=== PATIENT | female | born 1995 | race Caucasian/White ===

== ENCOUNTER 2018-11-24 15:57 | Inpatient (IN) | payer OTHER ==
[2018-11-24] MEDS ORDERED: Ondansetron 4 MG/2 ML SDV IV PRN (17:08)
[2018-11-24] MEDS ORDERED: Acetaminophen 325 MG Tab PO PRN (17:08)
[2018-11-24] MEDS ORDERED: 50% Dextrose in Water 50 ML Syringe IVPUSH PRN (17:08)
[2018-11-24] MEDS ORDERED: Sodium Chloride 0.9% 2,000 ML IV PRN (17:08)
[2018-11-24] MEDS ORDERED: Sodium Chloride 0.9% 10 ML Syringe FLUSH PRN (17:08)
[2018-11-24] MEDS ORDERED: Potassium Chloride 10% 20 MEQ/15 ML Soln 15 ML UD Cup PO PRN (17:08)
[2018-11-24] MEDS ORDERED: Sodium Phosphate 60 MMOLE in Sodium Chloride 0.9% 250 ML IV PRN (17:08)
--- NOTE | 2018-11-24 17:17 | PCM.HP ---
H&P History of Present Illness - General Date of Service: 11/24/18 Admit Problem/Dx: Admission Diagnosis/Problem Admission Diagnosis/Problem Ketoacidosis Source of Information: Patient, Provider History Limitations: Reports: No Limitations - History of Present Illness Initial Comments - Free Text/Narative: Ms. Sen is a 23-year-old woman who was admitted as a direct admission from the clinic with symptoms of progressive weakness and malaise, secondary to a new diagnosis of type 1 diabetes mellitus with diabetic ketoacidosis. She has not felt well over the past few months, symptoms have been progressive during that period of time and had included polydipsia and polyuria in addition to the weakness. She was into the clinic today to see her primary care provider, labs showed significant for glycemia with elevated anion gap and decrease in carbon dioxide. - Related Data Allergies/Adverse Reactions: Allergies Allergy/AdvReac Type Severity Reaction Status Date / Time No Known Allergies Allergy Verified 11/24/18 17:29 Home Medications: Home Meds Levonorgestrel-Ethin Estradiol [Marlissa-28 Tablet] 1 tab PO DAILY 11/24/18 [ History] Naproxen [EC-Naprosyn] 1 tab PO BID PRN 11/24/18 [History] Past Medical History - Past Health History Medical/Surgical History: Denies Medical/Surgical History Social & Family History - Tobacco Use Smoking Status *Q: Former Smoker Years of Tobacco use: 2 Packs/Tins Daily: 0.5 Used Tobacco, but Quit: Yes Month/Year Tobacco Last Used: 02/2017 Second Hand Smoke Exposure: No - Caffeine Use Caffeine Use: Reports: Coffee - Recreational Drug Use Recreational Drug Use: No H&P Review of Systems - Review of Systems: Review Of Systems: See Below General: Reports: Malaise, Weakness. Denies: Fever, Chills HEENT: Reports: No Symptoms Pulmonary: Reports: No Symptoms Cardiovascular: Reports: No Symptoms Gastrointestinal: Reports: No Symptoms Genitourinary: Reports: No Symptoms Musculoskeletal: Reports: No Symptoms Skin: Reports: No Symptoms Psychiatric: Reports: No Symptoms Neurological: Reports: No Symptoms Hematologic/Lymphatic: Reports: No Symptoms Immunologic: Reports: No Symptoms Exam - Exam Exam: See Below - Vital Signs Weight: 153 lb 7.068 oz - Exam General: Alert, Oriented, Cooperative, Moderate Distress HEENT: Conjunctiva Clear, Hearing Intact, Normal Nasal Septum, Posterior Pharynx Clear, Pupils Equal. No: Mucosa Moist & [place] Neck: Supple, Trachea Midline, +2 Carotid Pulse wo Bruit Lungs: Clear to Auscultation, Normal Respiratory Effort Cardiovascular: Regular Rate, Regular Rhythm, Normal S1, Normal S2. No: Systolic Murmur, Diastolic Murmur GI/Abdominal Exam: Soft, Non-Tender, No Organomegaly, No Distention Back Exam: Normal Inspection, Full Range of Motion Extremities: Non-Tender, No Pedal Edema Skin: Warm, Dry, Intact Neurological: Cranial Nerves Intact, Strength Equal Bilateral, Normal Speech, Normal Tone, Sensation Intact. No: Focal Deficit Neuro Extensive - Mental Status: Alert, Oriented x3, Normal Mood/Affect, Normal Cognition, Memory Intact - Patient Data Result Diagrams: 11/24/18 17:29 *Q Meaningful Use (ADM) - VTE *Q VTE Pharmacological Contraindications *Q: Not Candidate LT Anticoag - VTE Risk Assess *Q Each Risk Factor Represents 1 Point: None Total Score 1 Point Risk Factors: 0 Each Risk Factor Represents 2 Points: None Total Score 2 Point Risk Factors: 0 Each Risk Factor Represents 3 Points: None Total Score 3 Point Risk Factors: 0 Each Risk Factor Represents 5 Points: None Total Score 5 Point Risk Factors: 0 Venous Thromboembolism Risk Factor Score *Q: 0 Problem List Initiated/Reviewed/Updated: Yes Orders Last 24hrs: Active Orders 24 hr Category Date Time Status Patient Status [ADT] Routine ADT 11/24/18 17:08 Ordered Ambulate [RC] QID Care 11/24/18 17:08 Ordered Ambulate [RC] QID Care 11/24/18 17:08 Ordered Blood Glucose Check, Bedside [RC] Q1H Care 11/24/18 17:16 Ordered Cardiac Monitoring [RC] .As Directed Care 11/24/18 17:09 Ordered Diabetes Education [RC] Click to Edit Care 11/24/18 17:08 Ordered Height and Weight [RC] DAILY Care 11/24/18 17:08 Ordered Intake and Output [RC] QSHIFT Care 11/24/18 17:08 Ordered Notify Provider Laboratory Res [RC] ASDIRECTED Care 11/24/18 17:12 Ordered Notify Provider Laboratory Res [RC] ASDIRECTED Care 11/24/18 17:13 Ordered Notify Provider Laboratory Res [RC] ASDIRECTED Care 11/24/18 17:14 Ordered Notify Provider Vital Signs [RC] ASDIRECTED Care 11/24/18 17:08 Ordered Oxygen Therapy [RC] PRN Care 11/24/18 17:08 Ordered Peripheral IV Care [RC] . DIRECTED Care 11/24/18 17:11 Ordered Up ad Marissa [RC] ASDIRECTED Care 11/24/18 17:08 Ordered Up to Chair [RC] QID Care 11/24/18 17:08 Ordered VTE/DVT Education [RC] Per Unit Routine Care 11/24/18 17:08 Ordered Vital Signs [RC] Q1H Care 11/24/18 17:08 Ordered Vital Signs [RC] Q4H Care 11/24/18 17:08 Ordered Consult to Diabetic Nurse Specialist [CONS] Urgent Cons 11/24/18 17:08 Ordered Consistent Carbohydrate Diet [DIET] Diet 11/24/18 Dinner Ordered Pelvis Non OB Comp [US] Routine Exams 11/24/18 16:45 Taken BASIC METABOLIC PANEL,BMP [CHEM] Q4H Lab 11/24/18 17:15 Ordered BASIC METABOLIC PANEL,BMP [CHEM] Q4H Lab 11/24/18 21:15 Ordered BASIC METABOLIC PANEL,BMP [CHEM] Q4H Lab 11/25/18 01:15 Ordered BASIC METABOLIC PANEL,BMP [CHEM] Q4H Lab 11/25/18 05:15 Ordered BASIC METABOLIC PANEL,BMP [CHEM] Q4H Lab 11/25/18 09:15 Ordered BASIC METABOLIC PANEL,BMP [CHEM] Q4H Lab 11/25/18 13:15 Ordered GLYCOSYLATED HEMOGLOBIN,HGBA1C [CHEM] AM Lab 11/25/18 05:11 Ordered MAGNESIUM [CHEM] Q6H Lab 11/24/18 17:15 Ordered MAGNESIUM [CHEM] Q6H Lab 11/24/18 23:15 Ordered MAGNESIUM [CHEM] Q6H Lab 11/25/18 05:15 Ordered MAGNESIUM [CHEM] Q6H Lab 11/25/18 11:15 Ordered PH,VENOUS [BG] Stat Lab 11/24/18 17:14 Ordered PHOSPHORUS [CHEM] Q6H Lab 11/24/18 17:15 Ordered PHOSPHORUS [CHEM] Q6H Lab 11/24/18 23:15 Ordered PHOSPHORUS [CHEM] Q6H Lab 11/25/18 05:15 Ordered PHOSPHORUS [CHEM] Q6H Lab 11/25/18 11:15 Ordered POTASSIUM,K [CHEM] Q2 Lab 11/24/18 17:15 Ordered POTASSIUM,K [CHEM] Q2 Lab 11/24/18 19:15 Ordered POTASSIUM,K [CHEM] Q2 Lab 11/24/18 21:15 Ordered POTASSIUM,K [CHEM] Q2 Lab 11/24/18 23:15 Ordered POTASSIUM,K [CHEM] Q2 Lab 11/25/18 01:15 Ordered POTASSIUM,K [CHEM] Q2 Lab 11/25/18 03:15 Ordered POTASSIUM,K [CHEM] Q2 Lab 11/25/18 05:15 Ordered POTASSIUM,K [CHEM] Q2 Lab 11/25/18 07:15 Ordered POTASSIUM,K [CHEM] Q2 Lab 11/25/18 09:15 Ordered POTASSIUM,K [CHEM] Q2 Lab 11/25/18 11:15 Ordered POTASSIUM,K [CHEM] Q2 Lab 11/25/18 13:15 Ordered POTASSIUM,K [CHEM] Q2 Lab 11/25/18 15:15 Ordered Acetaminophen [Tylenol] Med 11/24/18 17:08 Ordered 650 mg PO Q4H PRN Dextrose 5%-0.45% NaCl [Dextrose 5%-1/2 NS] 1,000 ml Med 11/24/18 17:08 Ordered IV .CONTINUOUS Dextrose 50% in Water Med 11/24/18 17:08 Ordered 50 ml IVPUSH ONETIME PRN Insulin Regular, Human [HumuLIN R] Med 11/24/18 17:08 Once 3 unit SUBCUT ONETIME ONE Insulin Regular, Human [HumuLIN R] 100 unit Med 11/24/18 17:15 Ordered Sodium Chloride 0.9% [Normal Saline] 100 ml IV TITRATE Magnesium Sulfate/Water [Magnesium Sulfate in Water Med 11/24/18 17:08 Ordered Premix] 50 ml IV ONETIME Ondansetron [Zofran] Med 11/24/18 17:08 Ordered 4 mg IV Q4H PRN Polyethylene Glycol 3350 [MiraLAX] Med 11/24/18 17:08 Ordered 17 gm PO DAILY PRN Potassium Chloride [Potassium Chloride Solution] Med 11/24/18 17:08 Ordered 20 meq PO NOW PRN Potassium Chloride [Potassium Chloride Solution] Med 11/24/18 17:08 Ordered 40 meq PO NOW PRN Potassium Chloride [Potassium Chloride Solution] Med 11/24/18 17:08 Ordered 40 meq PO Q2H PRN Sodium Chloride 0.9% [Normal Saline] 2,000 ml Med 11/24/18 17:08 Ordered IV .CONTINUOUS Sodium Chloride 0.9% [Saline Flush] Med 11/24/18 17:08 Ordered 10 ml FLUSH ASDIRECTED PRN Sodium Phosphate 60 meq Med 11/24/18 17:08 Ordered Sodium Chloride 0.9% [Normal Saline] 250 ml IV ONETIME Medication Continuation Instructions [OM.PC] ASDIRECTED Oth 11/24/18 17:15 Ordered Medication Discontinuation Instructions [OM.PC] Ot 11/24/18 17:15 Ordered ASDIRECTED Peripheral IV Insertion Adult [OM.PC] Routine Ot 11/24/18 17:08 Ordered VTE Pharmacological Contraindications [AST] Per Unit Ot 11/24/18 17:08 Ordered Routine Resuscitation Status Routine Resus Stat 11/24/18 17:08 Ordered Assessment/Plan Comment:: ASSESSMENT AND PLAN DIABETIC KETOACIDOSIS-new diagnosis of diabetes, likely type I. Progressive symptoms of hyperglycemia over the past few months. Denies recent infection or other significant abnormalities. -IV fluids per ketoacidosis protocol -IV insulin per ketoacidosis protocol -Management of electrolytes per protocol NEW DIAGNOSIS TYPE 1 DIABETES MELLITUS -Consult prosthodontist/educator in a.m. MAINTENANCE ISSUES -DVT prophylaxis; not indicated -GI prophylaxis; not indicated -Mendez catheter; not indicated -Nutrition; consistent carb diet -Nicotine dependence; not required CODE STATUS-FULL CODE ADMISSION STATUS-patient will be admitted to inpatient status, expect at least a 2 night hospital stay for evaluation and management of problems as outlined above. At the time of this admission I do not reasonably expected evaluation and management of this problem will require more than a 96 hour hospital stay. DISPOSITION-anticipate discharge to home after the hospital stay. PRIMARY CARE PROVIDER-Yara Scott
[2018-11-24] MEDS ORDERED: Insulin Regular, Human 100 Units/ML 3 ML Vial SUBCUT ONE (17:40)
[2018-11-24] MEDS: Polyethylene Glycol 3350 Powder 17 GM Packet PO PRN (17:45)
[2018-11-24] MEDS: Magnesium Sulfate/Water 50 ML IV PRN (18:23)
[2018-11-24] MEDS: Potassium Chloride 10% 20 MEQ/15 ML Soln 15 ML UD Cup PO PRN ×3 (18:24→21:49)
[2018-11-24] MEDS: Dextrose 5%-0.45% NaCl 1,000 ML IV PRN (21:05)
[2018-11-25] MEDS: Potassium Chloride 10% 20 MEQ/15 ML Soln 15 ML UD Cup PO PRN ×4 (00:22→06:23)
[2018-11-25] MEDS: Magnesium Sulfate/Water 50 ML IV PRN ×2 (00:23→12:09)
[2018-11-25] MEDS: Dextrose 5%-0.45% NaCl 1,000 ML IV PRN ×2 (03:09→10:22)
[2018-11-25 06:42] LABS: HEMOGLOBIN A1C 12.7 % (4.5-6.2)
[2018-11-25] MEDS ORDERED: Sodium Phosphate 60 MMOLE in Sodium Chloride 0.9% 250 ML IV PRN (08:00)
[2018-11-25] MEDS ORDERED: Potassium Chloride 20 MEQ Tab.ER PO PRN ×2 (09:38→10:00)
[2018-11-25] MEDS: Potassium Chloride 20 MEQ Tab.ER PO PRN ×2 (10:35→12:09)
--- NOTE | 2018-11-25 10:35 | PCM.PN ---
- General Info Date of Service: 11/25/18 Subjective Update: Ms. Sen has improved significantly since admission, glucose level now controlled and diabetic ketoacidosis has resolved. She reports feeling somewhat better but the as expected did not sleep well during the night because of repeated blood draws. Functional Status: Reports: Tolerating Diet, Ambulating, Urinating - Review of Systems Pulmonary: Reports: No Symptoms Cardiovascular: Reports: No Symptoms Gastrointestinal: Reports: No Symptoms - Patient Data Vitals - Most Recent: Last Vital Signs Temp 97.1 F 11/25/18 10:00 Pulse 95 11/25/18 10:00 Resp 15 11/25/18 10:00 BP 121/80 11/25/18 10:00 Pulse Ox 99 11/25/18 10:00 Weight - Most Recent: 153 lb 7.068 oz I&O - Last 24 Hours: Intake & Output 11/24/18 11/25/18 11/25/18 22:59 06:59 14:59 Intake Total 4392 Output Total 400 1000 Balance -400 3392 Lab Results Last 24 Hours: Laboratory Results - last 24 hr 11/24/18 11/24/18 11/24/18 Range/Units 17:29 17:29 19:16 VBG pH 7.303 L (7.350-7.450) Sodium 133 L (140-148) mmol/L Potassium 3.7 3.3 L (3.6-5.2) mmol/L Chloride 98 L (100-108) mmol/L Carbon Dioxide 15 L (21-32) mmol/L Anion Gap 23.7 H (5.0-14.0) mmol/L BUN 8 D (7-18) mg/dL Creatinine 0.7 (0.6-1.0) mg/dL Est Cr Clr Drug Dosing 114.40 mL/min Estimated GFR (MDRD) > 60 (>60) Glucose 453 H* (74-106) mg/dL Hemoglobin A1c (4.5-6.2) % Calcium 8.9 (8.5-10.1) mg/dL Phosphorus 2.6 (2.5-4.9) mg/dL Magnesium 1.6 L (1.8-2.4) mg/dL 11/24/18 11/24/18 11/25/18 Range/Units 21:20 23:20 01:05 VBG pH (7.350-7.450) Sodium 139 L 139 L (140-148) mmol/L Potassium 3.6 3.3 L 3.3 L (3.6-5.2) mmol/L Chloride 108 108 (100-108) mmol/L Carbon Dioxide 17 L 20 L (21-32) mmol/L Anion Gap 17.6 H 14.3 H (5.0-14.0) mmol/L BUN 7 8 (7-18) mg/dL Creatinine 0.6 0.5 L (0.6-1.0) mg/dL Est Cr Clr Drug Dosing 133.46 160.15 mL/min Estimated GFR (MDRD) > 60 > 60 (>60) Glucose 206 H 172 H (74-106) mg/dL Hemoglobin A1c (4.5-6.2) % Calcium 8.2 L 7.8 L (8.5-10.1) mg/dL Phosphorus 1.1 L (2.5-4.9) mg/dL Magnesium 1.6 L (1.8-2.4) mg/dL 11/25/18 11/25/18 11/25/18 Range/Units 03:05 05:10 05:11 VBG pH (7.350-7.450) Sodium 139 L (140-148) mmol/L Potassium 3.8 3.6 (3.6-5.2) mmol/L Chloride 110 H (100-108) mmol/L Carbon Dioxide 19 L (21-32) mmol/L Anion Gap 13.6 (5.0-14.0) mmol/L BUN 6 L (7-18) mg/dL Creatinine 0.5 L (0.6-1.0) mg/dL Est Cr Clr Drug Dosing 160.15 mL/min Estimated GFR (MDRD) > 60 (>60) Glucose 153 H (74-106) mg/dL Hemoglobin A1c 12.7 H (4.5-6.2) % Calcium 7.9 L (8.5-10.1) mg/dL Phosphorus 1.0 L (2.5-4.9) mg/dL Magnesium 2.0 (1.8-2.4) mg/dL 11/25/18 11/25/18 Range/Units 07:10 09:09 VBG pH (7.350-7.450) Sodium 141 (140-148) mmol/L Potassium 3.7 3.2 L (3.6-5.2) mmol/L Chloride 110 H (100-108) mmol/L Carbon Dioxide 22 (21-32) mmol/L Anion Gap 12.2 (5.0-14.0) mmol/L BUN 4 L (7-18) mg/dL Creatinine 0.4 L (0.6-1.0) mg/dL Est Cr Clr Drug Dosing 200.19 mL/min Estimated GFR (MDRD) > 60 (>60) Glucose 144 H (74-106) mg/dL Hemoglobin A1c (4.5-6.2) % Calcium 8.0 L (8.5-10.1) mg/dL Phosphorus (2.5-4.9) mg/dL Magnesium (1.8-2.4) mg/dL Med Orders - Current: Current Medications Acetaminophen (Tylenol) 650 mg PO Q4H PRN PRN Reason: Pain (Mild 1-3)/fever Last Admin: 11/25/18 10:29 Dose: 650 mg Dextrose/Water (Dextrose 50% In Water) 50 ml IVPUSH ASDIRECTED PRN PRN Reason: Blood Glucose Dextrose/Sodium Chloride (Dextrose 5%-1/2 Ns) 1,000 mls @ 150 mls/hr IV .CONTINUOUS PRN PRN Reason: Blood Glucose Last Admin: 11/25/18 10:22 Dose: 150 mls/hr Insulin Human Regular 100 unit (/ Sodium Chloride) 100 mls @ 6.96 mls/hr IV TITRATE KINZA; Protocol Last Titration: 11/25/18 10:26 Dose: 0.1 units/kg/hr, 7 mls/hr Magnesium Sulfate (Magnesium Sulfate In Water Premix) 50 mls @ 25 mls/hr IV ASDIRECTED PRN PRN Reason: low magnesium Last Admin: 11/25/18 00:23 Dose: 25 mls/hr Sodium Chloride (Normal Saline) 2,000 mls @ 500 mls/hr IV .CONTINUOUS PRN PRN Reason: Blood Glucose Last Admin: 11/24/18 19:33 Dose: 500 mls/hr Sodium Phosphate 60 mmole/ (Sodium Chloride) 270 mls @ 62.5 mls/hr IV ONETIME PRN PRN Reason: Low phophorus Ondansetron HCl (Zofran) 4 mg IV Q4H PRN PRN Reason: Nausea/Vomiting Polyethylene Glycol (Miralax) 17 gm PO DAILY PRN PRN Reason: Constipation Last Admin: 11/24/18 17:45 Dose: 17 gm Potassium Chloride (Klor-Con M20) 20 meq PO ASDIRECTED PRN PRN Reason: Hypokalemia Potassium Chloride (Klor-Con M20) 40 meq PO ASDIRECTED PRN PRN Reason: Hypokalemia Potassium Chloride (Klor-Con M20) 40 meq PO Q2H PRN PRN Reason: Hypokalemia Sodium Chloride (Saline Flush) 10 ml FLUSH ASDIRECTED PRN PRN Reason: Keep Vein Open Discontinued Medications Insulin Human Regular (Humulin R) 3 unit SUBCUT ONETIME ONE Stop: 11/24/18 17:41 Last Admin: 11/24/18 17:46 Dose: 3 units Potassium Chloride (Potassium Chloride Solution) 20 meq PO ASDIRECTED PRN PRN Reason: Hypokalemia Last Admin: 11/25/18 06:23 Dose: 20 meq Potassium Chloride (Potassium Chloride Solution) 40 meq PO ASDIRECTED PRN PRN Reason: Hypokalemia Last Admin: 11/25/18 01:46 Dose: 40 meq Potassium Chloride (Potassium Chloride Solution) 40 meq PO Q2H PRN PRN Reason: Hypokalemia - Exam General: Alert, Oriented, Cooperative, No Acute Distress Lungs: Clear to Auscultation, Normal Respiratory Effort Cardiovascular: Regular Rate, Regular Rhythm, No Murmurs GI/Abdominal Exam: Soft, Non-Tender, No Organomegaly, No Distention Extremities: Non-Tender, No Pedal Edema - Problem List Review Problem List Initiated/Reviewed/Updated: Yes - My Orders Last 24 Hours: My Active Orders 11/24/18 17:08 Patient Status [ADT] Routine Ambulate [RC] QID Diabetes Education [RC] Click to Edit Height and Weight [RC] DAILY Intake and Output [RC] QSHIFT Notify Provider Vital Signs [RC] ASDIRECTED Oxygen Therapy [RC] PRN Up ad Marissa [RC] ASDIRECTED Up to Chair [RC] QID VTE/DVT Education [RC] Per Unit Routine Vital Signs [RC] Q1H Consult to Diabetic Nurse Specialist [CONS] Urgent Acetaminophen [Tylenol] 650 mg PO Q4H PRN Dextrose 5%-0.45% NaCl [Dextrose 5%-1/2 NS] 1,000 ml IV .CONTINUOUS Dextrose 50% in Water 50 ml IVPUSH ASDIRECTED PRN Magnesium Sulfate/Water [Magnesium Sulfate in Water Premix] 50 ml IV ASDIRECTED Ondansetron [Zofran] 4 mg IV Q4H PRN Polyethylene Glycol 3350 [MiraLAX] 17 gm PO DAILY PRN Sodium Chloride 0.9% [Normal Saline] 2,000 ml IV .CONTINUOUS Sodium Chloride 0.9% [Saline Flush] 10 ml FLUSH ASDIRECTED PRN Peripheral IV Insertion Adult [OM.PC] Routine VTE Pharmacological Contraindications [AST] Per Unit Routine Resuscitation Status Routine 11/24/18 17:09 Cardiac Monitoring [RC] Q6H 11/24/18 17:11 Peripheral IV Care [RC] Q6H 11/24/18 17:12 Notify Provider Laboratory Res [RC] ASDIRECTED 11/24/18 17:13 Notify Provider Laboratory Res [RC] ASDIRECTED 11/24/18 17:14 Notify Provider Laboratory Res [RC] ASDIRECTED 11/24/18 17:15 Insulin Regular, Human [HumuLIN R] 100 unit Sodium Chloride 0.9% [Normal Saline] 100 ml IV TITRATE Medication Continuation Instructions [OM.PC] ASDIRECTED Medication Discontinuation Instructions [OM.PC] ASDIRECTED 11/24/18 17:16 Blood Glucose Check, Bedside [RC] Q1H 11/24/18 Dinner Consistent Carbohydrate Diet [DIET] 11/25/18 08:00 Sodium Phosphate 60 mmole Sodium Chloride 0.9% [Normal Saline] 250 ml IV ONETIME 11/25/18 09:38 Potassium Chloride [Klor-Con M20] 40 meq PO ASDIRECTED PRN 11/25/18 10:00 Potassium Chloride [Klor-Con M20] 20 meq PO ASDIRECTED PRN Potassium Chloride [Klor-Con M20] 40 meq PO Q2H PRN 11/25/18 11:15 MAGNESIUM [CHEM] Q6H PHOSPHORUS [CHEM] Q6H POTASSIUM,K [CHEM] Q2H 11/25/18 13:15 BASIC METABOLIC PANEL,BMP [CHEM] Q4H 11/25/18 15:15 POTASSIUM,K [CHEM] Q2H 11/25/18 17:00 BASIC METABOLIC PANEL,BMP [CHEM] Stat 11/26/18 05:00 BASIC METABOLIC PANEL,BMP [CHEM] Timed - Plan Plan:: ASSESSMENT AND PLAN DIABETIC KETOACIDOSIS-new diagnosis of diabetes, likely type I. Progressive symptoms of hyperglycemia over the past few months. Denies recent infection or other significant abnormalities. Improved significantly since admission with control of glucose and resolution of ketoacidosis -IV fluids per ketoacidosis protocol -IV insulin per ketoacidosis protocol -Management of electrolytes per protocol NEW DIAGNOSIS TYPE 1 DIABETES MELLITUS -Consult clinical educator in a.m. -Plan to transition to subcutaneous insulin today MAINTENANCE ISSUES -DVT prophylaxis; not indicated -GI prophylaxis; not indicated -Mendez catheter; not indicated -Nutrition; consistent carb diet -Nicotine dependence; not required CODE STATUS-FULL CODE ADMISSION STATUS-patient will be admitted to inpatient status, expect at least a 2 night hospital stay for evaluation and management of problems as outlined above. At the time of this admission I do not reasonably expected evaluation and management of this problem will require more than a 96 hour hospital stay. DISPOSITION-anticipate discharge to home after the hospital stay. PRIMARY CARE PROVIDER-Yara Scott
[2018-11-25] MEDS: Polyethylene Glycol 3350 Powder 17 GM Packet PO PRN (10:37)
[2018-11-25] MEDS ORDERED: Glucose Gel 15 GM in 37.5 GM Tube PO PRN (12:53)
[2018-11-25] MEDS ORDERED: Insulin Glargine,Human Rec. Analog 100 Units/ML 3 ML Pen SUBCUT SCH (13:15)
--- NOTE | 2018-11-25 16:27 | CRLUS ---
INDICATION: Irregular bleeding TECHNIQUE: Ultrasound pelvis transabdominal only COMPARISON: 11/11/2017 FINDINGS: Uterus: 6.8 centimeter x 2.9 centimeter x 3.6 centimeter normal echotexture of the myometrium. No masses. Endometrium: The endometrium measures 5 mm in thickness. No sign of endometrial mass or fluid. Right ovary: 3.1 centimeter x 1.6 centimeter x 2.0 centimeter. No ovarian or adnexal masses. Normal arterial and venous blood flow. Left ovary: 2.8 centimeter x 2.0 centimeter x 2.8 centimeter. No ovarian or adnexal masses. Normal arterial and venous blood flow. Cul-de-sac: No significant free fluid. IMPRESSION: Unremarkable pelvic ultrasound. Dictated by Babar Marc MD @ Nov 25 2018 4:25PM Signed by Dr. Babar Marc @ Nov 25 2018 4:25PM
[2018-11-25] MEDS: Insulin Lispro 100 Unit/ML 3 ML KwikPen SUBCUT SCH ×3 (17:03→20:34)
[2018-11-26 08:08] VITALS: BP 100/65; PULSE 91
[2018-11-26] MEDS: Insulin Lispro 100 Unit/ML 3 ML KwikPen SUBCUT SCH ×2 (08:11→08:13)
[2018-11-26] MEDS ORDERED: Insulin Glargine,Human Rec. Analog 100 Units/ML 3 ML Pen SUBCUT SCH (09:30)
--- NOTE | 2018-11-26 09:40 | PCM.DCSUM1 ---
Discharge Summary - Hospital Course Brief History: Ms. Sen is a 23-year-old woman who was admitted as a direct admission from the clinic with marked hyperglycemia and diabetic ketoacidosis. - Discharge Data Discharge Date: 11/26/18 Discharge Disposition: Home, Self-Care 01 Condition: Fair - Discharge Diagnosis/Problem(s) (1) Diabetic ketoacidosis associated with type 1 diabetes mellitus SNOMED Code(s): 391499212, 524863244 ICD Code: E10.10 - TYPE 1 DIABETES MELLITUS WITH KETOACIDOSIS WITHOUT COMA Status: Acute Current Visit: Yes (2) Type 1 diabetes mellitus SNOMED Code(s): 74181623 ICD Code: E10.9 - TYPE 1 DIABETES MELLITUS WITHOUT COMPLICATIONS Status: Chronic Current Visit: Yes - Patient Summary/Data Consults: Consultations 11/24/18 17:08 Consult to Diabetic Nurse Specialist [CONS] Urgent Comment: Physician Instructions: Reason for Consult: New diagnosis type 1 diabetes mellitus Hospital Course: Ms. Sen is a 23-year-old woman who was admitted as a direct admission from the clinic with symptoms of progressive weakness and malaise, secondary to a new diagnosis of type 1 diabetes mellitus with diabetic ketoacidosis. She has not felt well over the past few months, symptoms have been progressive during that period of time and had included polydipsia and polyuria in addition to the weakness. She was into the clinic today to see her primary care provider, labs showed marked hyperglycemia with elevated anion gap and decrease in carbon dioxide. On admission she was placed on diabetic ketoacidosis protocol and was given a bolus dose of insulin as well as started on a continuous infusion of regular insulin. Glucose levels were monitored hourly, potassium levels every 2 hours, and a BMP every 4 hours with phosphorus and magnesium. By the following morning blood sugars were under good control and ketoacidosis had resolved. She' d also been given vigorous IV fluid replacement per ketoacidosis protocol. She was seen and evaluated by the senior health educator and dietitian. She was transitioned to subcutaneous insulin with Lantus 60 units subcutaneous daily and Humalog 6 units subcutaneous 3 times daily with meals. By the following morning glucose level was noted to be 88 and her daily dose of long acting insulin was decreased to 50 units. She was instructed on use of glucose monitoring as well as injection of insulin. Follow-up appointment will be scheduled with the senior health educator. She will see her primary care provider for follow-up within one week. She is also been scheduled for an appointment with endocrinology on 09 December. Activity will be as tolerated and she will be on a consistent carbohydrate diet. On discharge she will be transitioned to Tresiba insulin 15 at subcutaneous daily and NovoLog 6 units subcutaneous 3 times daily with meals. - Patient Instructions Diet: Diabetic Diet (Consistent carbohydrate) Activity: As Tolerated - Discharge Plan *PRESCRIPTION DRUG MONITORING PROGRAM REVIEWED*: Not Applicable *COPY OF PRESCRIPTION DRUG MONITORING REPORT IN PATIENT MORENO: Not Applicable Prescriptions/Med Rec: Insulin Degludec [Tresiba Flextouch U-100] 50 unit SQ DAILY #10 ml Insulin Lispro [Humalog] 6 unit SUBCUT TIDMEALS #1 pen Home Medications: Home Meds Levonorgestrel-Ethin Estradiol [Marlissa-28 Tablet] 1 tab PO DAILY 11/24/18 [ History] Insulin Degludec [Tresiba Flextouch U-100] 50 unit SQ DAILY #10 ml 11/26/18 [Rx] Insulin Lispro [Humalog] 6 unit SUBCUT TIDMEALS #1 pen 11/26/18 [Rx] Referrals: Taylor Abdalla NP [Ordering Only Provider] - 12/09/18 2:00 pm (Please arrive a5 minutes early to register for your appointment.) Yara Scott CNM [Primary Care Provider] - 12/05/18 1:30 pm (Please arrive 15 minutes early to register for your appointment.) - Discharge Summary/Plan Comment DC Time >30 min.: No - Patient Data Vitals - Most Recent: Last Vital Signs Temp 98 F 11/26/18 08:00 Pulse 91 11/26/18 08:00 Resp 14 11/26/18 08:00 BP 100/65 11/26/18 08:00 Pulse Ox 97 11/26/18 08:00 Weight - Most Recent: 153 lb 7.068 oz Lab Results - Last 24 hrs: Laboratory Results - last 24 hr 11/25/18 11/25/18 11/26/18 Range/Units 11:09 16:58 05:30 Sodium 140 141 (140-148) mmol/L Potassium 3.5 L 3.5 L 3.4 L (3.6-5.2) mmol/L Chloride 107 109 H (100-108) mmol/L Carbon Dioxide 23 23 (21-32) mmol/L Anion Gap 13.5 12.4 (5.0-14.0) mmol/L BUN 7 D 6 L (7-18) mg/dL Creatinine 0.5 L 0.4 L (0.6-1.0) mg/dL Est Cr Clr Drug Dosing 159.90 199.87 mL/min Estimated GFR (MDRD) > 60 > 60 (>60) Glucose 296 H 88 (74-106) mg/dL Calcium 7.7 L 8.2 L (8.5-10.1) mg/dL Phosphorus 1.2 L (2.5-4.9) mg/dL Magnesium 1.7 L (1.8-2.4) mg/dL Med Orders - Current: Current Medications Acetaminophen (Tylenol) 650 mg PO Q4H PRN PRN Reason: Pain (Mild 1-3)/fever Last Admin: 11/25/18 10:29 Dose: 650 mg Dextrose (Glutose 15) 15 gm PO ONETIME PRN PRN Reason: Hypoglycemia Dextrose/Water (Dextrose 50% In Water) 50 ml IVPUSH ASDIRECTED PRN PRN Reason: Blood Glucose Magnesium Sulfate (Magnesium Sulfate In Water Premix) 50 mls @ 25 mls/hr IV ASDIRECTED PRN PRN Reason: low magnesium Last Admin: 11/25/18 12:09 Dose: 25 mls/hr Sodium Phosphate 60 mmole/ (Sodium Chloride) 270 mls @ 62.5 mls/hr IV ONETIME PRN PRN Reason: Low phophorus Last Admin: 11/25/18 13:15 Dose: 62.5 mls/hr Insulin Glargine (Lantus Solostar) 50 units SUBCUT DAILY [facility] Last Admin: 11/26/18 09:23 Dose: 50 units Insulin Human Lispro (Humalog) 6 unit SUBCUT TIDMEALS [facility] Last Admin: 11/26/18 08:13 Dose: 6 units Insulin Human Lispro (Humalog) 0 unit SUBCUT QIDACANDBED [facility]; Protocol Last Admin: 11/26/18 08:11 Dose: Not Given Ondansetron HCl (Zofran) 4 mg IV Q4H PRN PRN Reason: Nausea/Vomiting Polyethylene Glycol (Miralax) 17 gm PO DAILY PRN PRN Reason: Constipation Last Admin: 11/25/18 10:37 Dose: 17 gm Potassium Chloride (Klor-Con M20) 20 meq PO ASDIRECTED PRN PRN Reason: Hypokalemia Last Admin: 11/25/18 12:09 Dose: 20 meq Potassium Chloride (Klor-Con M20) 40 meq PO ASDIRECTED PRN PRN Reason: Hypokalemia Potassium Chloride (Klor-Con M20) 40 meq PO Q2H PRN PRN Reason: Hypokalemia Sodium Chloride (Saline Flush) 10 ml FLUSH ASDIRECTED PRN PRN Reason: Keep Vein Open Discontinued Medications Dextrose/Sodium Chloride (Dextrose 5%-1/2 Ns) 1,000 mls @ 150 mls/hr IV .CONTINUOUS PRN PRN Reason: Blood Glucose Last Admin: 11/25/18 10:22 Dose: 150 mls/hr Insulin Human Regular 100 unit (/ Sodium Chloride) 100 mls @ 6.96 mls/hr IV TITRATE KINZA; Protocol Last Titration: 11/25/18 10:26 Dose: 0.1 units/kg/hr, 7 mls/hr Sodium Chloride (Normal Saline) 2,000 mls @ 500 mls/hr IV .CONTINUOUS PRN PRN Reason: Blood Glucose Last Admin: 11/24/18 19:33 Dose: 500 mls/hr Insulin Glargine (Lantus Solostar) 60 units SUBCUT DAILY [facility] Last Admin: 11/25/18 13:26 Dose: 60 units Insulin Human Regular (Humulin R) 3 unit SUBCUT ONETIME ONE Stop: 11/24/18 17:41 Last Admin: 11/24/18 17:46 Dose: 3 units Potassium Chloride (Potassium Chloride Solution) 20 meq PO ASDIRECTED PRN PRN Reason: Hypokalemia Last Admin: 11/25/18 06:23 Dose: 20 meq Potassium Chloride (Potassium Chloride Solution) 40 meq PO ASDIRECTED PRN PRN Reason: Hypokalemia Last Admin: 11/25/18 01:46 Dose: 40 meq Potassium Chloride (Potassium Chloride Solution) 40 meq PO Q2H PRN PRN Reason: Hypokalemia - Exam General: Reports: Alert, Oriented, Cooperative, No Acute Distress Lungs: Reports: Clear to Auscultation, Normal Respiratory Effort Cardiovascular: Reports: Regular Rate, Regular Rhythm, No Murmurs GI/Abdominal Exam: Soft, Non-Tender, No Organomegaly, No Distention *Q Meaningful Use (DIS) - VTE *Q VTE Pharmacological Contraindications *Q: Not Candidate LT Anticoag
== END 2018-11-26 10:53 | disposition home or self-care (01) | DRG 639 ==
LOC: JP.US 15:57 → UNDOADMIN 16:58 → JP.ICU 16:58
PROVIDERS: ADMIT Hospitalist; ATTEND Hospitalist
DX: E10.10 Type 1 diabetes mellitus with ketoacidosis without coma (principal); Z79.899 Other long term (current) drug therapy; Z87.891 Personal history of nicotine dependence
CPT/HCPCS: 36415; 76856; 80048; 82800; 82962; 83036; 83735; 84100; 84132; A9270-GY; J1815; J1815-GY; J3475; J7030; J7050

== ENCOUNTER 2019-07-16 21:32 | Emergency (ER) | payer OTHER ==
[2019-07-16 21:43] VITALS: BP 136/85; PULSE 119
--- NOTE | 2019-07-16 22:01 | EDM.PDOC ---
ED HPI GENERAL MEDICAL PROBLEM - General Chief Complaint: Fever Stated Complaint: FEVER,SOB Time Seen by Provider: 07/16/19 21:45 Source of Information: Reports: Patient, Old Records, RN History Limitations: Reports: No Limitations - History of Present Illness INITIAL COMMENTS - FREE TEXT/NARRATIVE: 24 yo female presents with intermittent fever for a week. Has had an occasional dry cough. Is mildly SOB. No calf pain or LE edema. Is and an IDDM with a pump. Her BS are running up to 300 which is high for her. Was tested yesterday for a UTI and this test was neg. When the clinic provider saw she was diabetic and sent her to OB for a first OB visit and they never finished with the fever work up. Onset: Gradual Duration: Week(s): (1), Waxing/Waning Location: Reports: Generalized Quality: Reports: Other (no pain reported) Severity: Mild Improves with: Reports: None Worsens with: Reports: Other (unknown) Context: Reports: Other (see HPI) Associated Symptoms: Reports: Cough, Fever/Chills, Shortness of Breath (mild). 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 Denies: Wheezing, Pleuritic Chest Pain, Sputum, Hemoptysis Cardiovascular: Reports: No Symptoms Endocrine: Reports: High Glucose GI/Abdominal: Reports: No Symptoms : Reports: No Symptoms, Other (amenorrhea, is ) Musculoskeletal: Reports: No Symptoms Skin: Reports: No Symptoms Neurological: Reports: No Symptoms Psychiatric: Reports: No Symptoms ED EXAM, GENERAL - Physical Exam Exam: See Below Exam Limited By: No Limitations General Appearance: Alert, WD/WN, No Apparent Distress Eye Exam: Bilateral Eye: Normal Inspection Ears: Normal External Exam, Normal Canal, Hearing Grossly Normal Ear Exam: Bilateral Ear: Auricle Normal, Canal Normal, TM normal Nose: Normal Inspection, No Blood Throat/Mouth: Normal Inspection, Normal Lips, Normal Oropharynx, Normal Voice, No Airway Compromise Head: Atraumatic, Normocephalic Neck: Normal Inspection Respiratory/Chest: No Respiratory Distress, Lungs Clear, Normal Breath Sounds, No Accessory Muscle Use Cardiovascular: Regular Rate, Rhythm, No Edema GI/Abdominal: Normal Bowel Sounds, Soft, Non-Tender, No Distention Back Exam: Normal Inspection. No: CVA Tenderness (R), CVA Tenderness (L) Extremities: Normal Inspection, Normal Range of Motion, Non-Tender, No Pedal Edema Neurological: Alert, Oriented, CN II-XII Intact, Normal Cognition, No Motor/ Sensory Deficits Psychiatric: Normal Affect, Normal Mood Skin Exam: Warm, Dry, Intact, Normal Color, No Rash Course - Vital Signs Last Recorded V/S: Last Vital Signs Temp 36.7 C 07/16/19 21:47 Pulse 119 H 07/16/19 21:47 Resp 16 07/16/19 21:47 BP 136/85 07/16/19 21:47 Pulse Ox 99 07/16/19 21:47 Orthostatic Blood Pressure [ 124/77 Standing] Orthostatic Blood Pressure [ 126/79 Sitting] Orthostatic Blood Pressure [ 129/72 Supine] - Orders/Labs/Meds Orders: Active Orders 24 hr Category Date Time Status Orthostatic Vital Signs [RC] ASDIRECTED Care 07/16/19 22:22 Active Labs: Laboratory Tests 07/16/19 07/16/19 07/16/19 Range/Units 21:50 22:00 22:14 WBC 9.5 (4.5-11.0) K/uL RBC 4.62 (3.30-5.50) M/uL Hgb 13.0 (12.0-15.0) g/dL Hct 38.4 (36.0-48.0) % MCV 83 (80-98) fL MCH 28 (27-31) pg MCHC 34 (32-36) % Plt Count 205 (150-400) K/uL D-Dimer, Quantitative < 100 (0.0-400.0) ng/mL VBG pH 7.413 (7.350-7.450) Sodium (140-148) mmol/L Potassium (3.6-5.2) mmol/L Chloride (100-108) mmol/L Carbon Dioxide (21-32) mmol/L Anion Gap (5.0-14.0) mmol/L BUN (7-18) mg/dL Creatinine (0.6-1.0) mg/dL Est Cr Clr Drug Dosing mL/min Estimated GFR (MDRD) (>60) Glucose (74-106) mg/dL Lactic Acid (0.4-2.0) mmol/L Calcium (8.5-10.1) mg/dL 07/16/19 07/16/19 Range/Units 22:14 22:14 WBC (4.5-11.0) K/uL RBC (3.30-5.50) M/uL Hgb (12.0-15.0) g/dL Hct (36.0-48.0) % MCV (80-98) fL MCH (27-31) pg MCHC (32-36) % Plt Count (150-400) K/uL D-Dimer, Quantitative (0.0-400.0) ng/mL VBG pH (7.350-7.450) Sodium 135 L (140-148) mmol/L Potassium 4.0 (3.6-5.2) mmol/L Chloride 100 (100-108) mmol/L Carbon Dioxide 24 (21-32) mmol/L Anion Gap 15.0 H (5.0-14.0) mmol/L BUN 12 D (7-18) mg/dL Creatinine 0.8 D (0.6-1.0) mg/dL Est Cr Clr Drug Dosing 99.25 mL/min Estimated GFR (MDRD) > 60 (>60) Glucose 311 H (74-106) mg/dL Lactic Acid 1.2 (0.4-2.0) mmol/L Calcium 8.4 L (8.5-10.1) mg/dL Departure - Departure Time of Disposition: 23:02 Disposition: Home, Self-Care 01 Condition: Good Clinical Impression: Viral illness, Elevated blood sugar - Discharge Information *PRESCRIPTION DRUG MONITORING PROGRAM REVIEWED*: Not Applicable *COPY OF PRESCRIPTION DRUG MONITORING REPORT IN PATIENT MORENO: Not Applicable Referrals: Yara Scott CNM [Primary Care Provider] - Forms: ED Department Discharge Additional Instructions: Acetaminophen as needed for fever. Drink ample fluids. Check your blood sugars frequently and treat according to your blood sugars. Follow up with your provider(s) as needed. Rest. Sepsis Event Note - Evaluation Sepsis Screening Result: Possible Sepsis Risk - Focused Exam Vital Signs: Vital Signs Temp Pulse Resp BP Pulse Ox 07/16/19 21:47 36.7 C 119 H 16 136/85 99 07/16/19 21:42 36.7 C 119 H 16 136/85 99 Date Exam was Performed: 07/16/19 Time Exam was Performed: 23:02 - My Orders Last 24 Hours: My Active Orders 07/16/19 22:22 Orthostatic Vital Signs [RC] ASDIRECTED - Assessment/Plan Last 24 Hours: My Active Orders 07/16/19 22:22 Orthostatic Vital Signs [RC] ASDIRECTED
== END 2019-07-16 23:11 | disposition home or self-care (01) ==
LOC: JP.ED 21:32
DX: O98.511 Other viral diseases complicating pregnancy, first trimester (principal); B34.9 Viral infection, unspecified; O24.011 Pre-existing type 1 diabetes mellitus, in pregnancy, first trimester; E10.65 Type 1 diabetes mellitus with hyperglycemia
CPT/HCPCS: 36415; 80048; 82800; 83605; 85027; 85379; 87804; 87804-59; 99284

== ENCOUNTER 2019-09-01 02:10 | Emergency (ER) | payer OTHER ==
[2019-09-01] MEDS ORDERED: Lactated Ringers 1,000 ML IV ONE (02:59)
--- NOTE | 2019-09-01 03:05 | EDM.PDOC ---
ED HPI GENERAL MEDICAL PROBLEM - General Chief Complaint: General Stated Complaint: PASSED OUT 14 WEEK PREG Time Seen by Provider: 09/01/19 02:45 Source of Information: Reports: Patient, Old Records, RN History Limitations: Reports: No Limitations - History of Present Illness INITIAL COMMENTS - FREE TEXT/NARRATIVE: 24 yo female at 14 weeks gestation presents with several recent episodes of either syncope of near syncope associated with standing in one place, sometimes for only a few minutes. Is diabetic, but her BS's have been good. No fevers. No obvious slow or fast heart rates. No vomiting or diarrhea or melena. Feels light -headed just before she passes out. If she is able to sit down quickly enough she can abort the feeling of light-headedness. Doesn't think her urine is dark. No vaginal bleeding or cramping. Had her last OB appt about 3 weeks ago and all was well at that time. Onset: Today (last episode about 0145h) Duration: Minutes:, Resolved Prior to Arrival Location: Reports: Generalized Quality: Reports: Other (no pain reported) Severity: Mild Improves with: Reports: Other (sitting or lying) Worsens with: Reports: Other (prolonged standing) Context: Reports: Other (See HPI) Associated Symptoms: Reports: No Other Symptoms. 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 Musculoskeletal History: Reports: Arthritis Endocrine/Metabolic History: Reports: Diabetes, Type I - Past Surgical History Female Surgical History: Reports: Other (See Below) Social & Family History - Caffeine Use Caffeine Use: Reports: Coffee ED ROS GENERAL - Review of Systems Review Of Systems: See Below Constitutional: Reports: No Symptoms HEENT: Reports: No Symptoms Respiratory: Reports: No Symptoms Cardiovascular: Reports: Lightheadedness Endocrine: Reports: No Symptoms GI/Abdominal: Reports: No Symptoms : Reports: No Symptoms Musculoskeletal: Reports: No Symptoms Skin: Reports: Diaphoresis. Denies: Bruising, Erythema Neurological: Reports: No Symptoms Psychiatric: Reports: No Symptoms ED EXAM, GENERAL - Physical Exam Exam: See Below Exam Limited By: No Limitations General Appearance: Alert, WD/WN, No Apparent Distress Eye Exam: Bilateral Eye: Normal Inspection Ears: Normal External Exam, Normal Canal, Hearing Grossly Normal, Normal TMs Ear Exam: Bilateral Ear: Auricle Normal, Canal Normal Nose: Normal Inspection, No Blood Throat/Mouth: Normal Inspection, Normal Lips, Normal Oropharynx, Normal Voice, No Airway Compromise Head: Atraumatic, Normocephalic Neck: Normal Inspection Respiratory/Chest: No Respiratory Distress, Lungs Clear, Normal Breath Sounds, No Accessory Muscle Use Cardiovascular: Regular Rate, Rhythm, No Edema GI/Abdominal: Normal Bowel Sounds, Soft, Non-Tender, No Distention Back Exam: Normal Inspection. No: CVA Tenderness (R), CVA Tenderness (L) Extremities: Normal Inspection, Normal Range of Motion, Non-Tender, No Pedal Edema Neurological: Alert, Oriented, CN II-XII Intact, Normal Cognition, No Motor/ Sensory Deficits Psychiatric: Normal Affect, Normal Mood Skin Exam: Warm, Dry, Intact, Normal Color, No Rash Course - Vital Signs Last Recorded V/S: Last Vital Signs Temp 36.0 C L 09/01/19 02:25 Pulse 86 09/01/19 02:25 Resp 16 09/01/19 02:25 BP 131/86 09/01/19 02:25 Pulse Ox 100 09/01/19 02:25 Orthostatic Blood Pressure [ 132/81 Standing] Orthostatic Blood Pressure [ 121/81 Sitting] Orthostatic Blood Pressure [ 122/74 Supine] - Orders/Labs/Meds Orders: Active Orders 24 hr Category Date Time Status Cardiac Monitoring [RC] .As Directed Care 09/01/19 02:13 Active Orthostatic Vital Signs [RC] ASDIRECTED Care 09/01/19 02:14 Active Labs: Laboratory Tests 09/01/19 Range/Units 03:17 Urine Color Yellow (YELLOW) Urine Appearance Slightly cloudy A (CLEAR) Urine pH 6.0 (5.0-8.0) Ur Specific [place] >= 1.030 (1.008-1.030) Urine Protein Negative (NEGATIVE) mg/dL Urine Glucose (UA) 500 H (NEGATIVE) mg/dL Urine Ketones Negative (NEGATIVE) mg/dL Urine Occult Blood Negative (NEGATIVE) Urine Nitrite Negative (NEGATIVE) Urine Bilirubin Negative (NEGATIVE) Urine Urobilinogen 0.2 (0.2-1.0) EU/dL Ur Leukocyte Esterase Negative (NEGATIVE) Urine RBC 0-5 (0-5) Urine WBC 0-5 (0-5) Ur Epithelial Cells Many Amorphous Sediment Not seen Urine Bacteria Many Urine Mucus Not seen Meds: Medications Discontinued Medications Generic Name Dose Route Start Last Admin Trade Name Jamie PRN Reason Stop Dose Admin Lactated Ringer's 1,000 mls @ 1,000 mls/hr 09/01/19 02:59 09/01/19 03:13 Ringers, Lactated IV 09/01/19 03:58 1,000 mls/hr BOLUS ONE Administration Departure - Departure Time of Disposition: :20 Disposition: Home, Self-Care 01 Condition: Good Clinical Impression: Orthostatic syncope, Mild dehydration - Discharge Information *PRESCRIPTION DRUG MONITORING PROGRAM REVIEWED*: No *COPY OF PRESCRIPTION DRUG MONITORING REPORT IN PATIENT MORENO: No Instructions: Orthostatic Hypotension Referrals: Yara Scott CNM [Primary Care Provider] - Forms: ED Department Discharge Additional Instructions: Drink a sufficient amount of fluids so that your urine is always light yellow in color. Get up from sitting or lying slowly. If standing in one place alternate moreno the muscles in your legs to help move blood back to your heart from your legs. Consider support stockings to keep blood from pooling in your legs. Follow up with your primary care provider or dental cream maker later in the week. Sepsis Event Note - Focused Exam Vital Signs: Vital Signs Temp Pulse Resp BP Pulse Ox 09/01/19 02:25 36.0 C L 86 16 131/86 100 09/01/19 02:13 36.0 C L 86 16 131/86 100 Date Exam was Performed: 09/01/19 Time Exam was Performed: 04:15 - My Orders Last 24 Hours: My Active Orders 09/01/19 02:13 Cardiac Monitoring [RC] .As Directed 09/01/19 02:14 Orthostatic Vital Signs [RC] ASDIRECTED - Assessment/Plan Last 24 Hours: My Active Orders 09/01/19 02:13 Cardiac Monitoring [RC] .As Directed 09/01/19 02:14 Orthostatic Vital Signs [RC] ASDIRECTED
[2019-09-01 04:15] VITALS: BP 118/74; PULSE 77
== END 2019-09-01 04:26 | disposition home or self-care (01) ==
LOC: JP.ED 02:10
DX: O99.282 Endocrine, nutritional and metabolic diseases complicating pregnancy, second trimester (principal); E86.0 Dehydration; O99.89 Other specified diseases and conditions complicating pregnancy, childbirth and the puerperium; R55 Syncope and collapse; O24.012 Pre-existing type 1 diabetes mellitus, in pregnancy, second trimester; E10.9 Type 1 diabetes mellitus without complications; M19.90 Unspecified osteoarthritis, unspecified site; Z3A.14 14 weeks gestation of pregnancy
CPT/HCPCS: 81001; 96360; 99284; J7120

== ENCOUNTER 2020-06-22 14:43 | Emergency (ER) | payer BC, OTHER ==
[2020-06-22] MEDS ORDERED: 50% Dextrose in Water 50 ML Syringe IVPUSH PRN (15:25)
[2020-06-22] MEDS ORDERED: Glucagon,Human Recombinant 1 MG Vial IM PRN (15:25)
[2020-06-22] MEDS ORDERED: Insulin Regular, Human 100 Units/ML 3 ML Vial SUBCUT ONE (15:25)
[2020-06-22] MEDS ORDERED: NS + KCl 20mEq/L 1,000 ML IV SCH (15:30)
--- NOTE | 2020-06-22 15:31 | EDM.PDOC ---
ED HPI GENERAL MEDICAL PROBLEM - General Chief Complaint: Diabetic Complaint Stated Complaint: LARGE KETONES Time Seen by Provider: 06/22/20 15:20 Source of Information: Reports: Patient, Old Records History Limitations: Reports: No Limitations - History of Present Illness INITIAL COMMENTS - FREE TEXT/NARRATIVE: 24 yo female with IDDM and an insulin pump presents with elevated BS and ketones since this morning when she awoke about 0930h and noticed that her insulin pump had been pulled out. She had one emesis about 1330h today and took Zofran at that time with relief. Has no been ill recently. Her glucose meter reads "high". Not able to get her BS down since then. Onset: Today, Gradual Onset Date: 06/22/20 Duration: Hour(s): Location: Reports: Generalized Quality: Reports: Other (no pain) Severity: Moderate Improves with: Reports: None Worsens with: Reports: Other (pump disconnected) Context: Reports: Other (See HPI) Associated Symptoms: Reports: Nausea/Vomiting. 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 History: Reports: Endometriosis Musculoskeletal History: Reports: Arthritis Endocrine/Metabolic History: Reports: Diabetes, Type I Insulin Pump Model and Rn Military: t;slim, tandem - Past Surgical History Female Surgical History: Reports: Other (See Below) Social & Family History - Caffeine Use Caffeine Use: Reports: Coffee ED ROS GENERAL - Review of Systems Review Of Systems: See Below Constitutional: Reports: No Symptoms HEENT: Reports: No Symptoms Respiratory: Reports: No Symptoms Cardiovascular: Reports: No Symptoms Endocrine: Reports: High Glucose GI/Abdominal: Reports: Nausea, Vomiting (x one). Denies: Abdominal Pain, Diarrhea Musculoskeletal: Reports: No Symptoms Skin: Reports: No Symptoms Neurological: Reports: No Symptoms ED EXAM GENERAL NO PERIP PULSE - Physical Exam Exam: See Below Exam Limited By: No Limitations General Appearance: Alert, WD/WN, No Apparent Distress Eye Exam: Bilateral Eye: Normal Inspection Ears: Normal External Exam, Normal Canal, Hearing Grossly Normal Nose: Normal Inspection, No Blood Throat/Mouth: Normal Inspection, Normal Lips, Normal Oropharynx, Normal Voice, No Airway Compromise Head: Atraumatic, Normocephalic Neck: Normal Inspection Respiratory/Chest: No Respiratory Distress, Lungs Clear, Normal Breath Sounds, No Accessory Muscle Use Cardiovascular: Normal Peripheral Pulses, Regular Rate, Rhythm, No Edema GI/Abdominal: Normal Bowel Sounds, Soft, Non-Tender, No Distention Back Exam: Normal Inspection. No: CVA Tenderness (R), CVA Tenderness (L) Extremities: Normal Inspection, Normal Range of Motion, Non-Tender, No Pedal Edema. No: Pedal Edema Neurological: Alert, Oriented, CN II-XII Intact, Normal Cognition, No Motor/Sensory Deficits Psychiatric: Normal Affect, Normal Mood Skin Exam: Warm, Dry, Intact, Normal Color, No Rash Course - Vital Signs Last Recorded V/S: Last Vital Signs Temp 36.6 C 06/22/20 15:25 Pulse 75 06/22/20 17:00 Resp 16 06/22/20 15:25 BP 109/65 06/22/20 17:00 Pulse Ox 97 06/22/20 17:00 - Orders/Labs/Meds Orders: Active Orders 24 hr Category Date Time Status Dextrose 50% in Water Med 06/22/20 15:25 Active 50 ml IVPUSH ASDIRECTED PRN Glucagon,Human Recombinant [GlucaGen] Med 06/22/20 15:25 Active 1 mg IM ASDIRECTED PRN NS + KCl 20mEq/L [Normal Saline with 20 mEq KCl] 1,000 Med 06/22/20 15:30 Active ml IV ASDIRECTED Medication Orders Dextrose/Water (Dextrose 50% In Water) 50 ml IVPUSH ASDIRECTED PRN PRN Reason: Hypoglycemia Glucagon (Glucagen) 1 mg IM ASDIRECTED PRN PRN Reason: Hypoglycemia Potassium Chloride/Sodium Chloride (Normal Saline With 20 Meq Kcl) 1,000 mls @ 500 mls/hr IV ASDIRECTED KINZA Last Admin: 06/22/20 16:10 Dose: 500 mls/hr Documented by: PHILOMENA Labs: Laboratory Tests 06/22/20 06/22/20 06/22/20 Range/Units 14:46 16:25 17:10 Sodium 136 L (140-148) mmol/L Potassium 3.8 (3.6-5.2) mmol/L Chloride 100 (100-108) mmol/L Carbon Dioxide 25 (21-32) mmol/L Anion Gap 14.8 H (5.0-14.0) mmol/L BUN 13 (7-18) mg/dL Creatinine 0.9 (0.6-1.0) mg/dL Est Cr Clr Drug Dosing 84.67 mL/min Estimated GFR (MDRD) > 60 (>60) Glucose 462 H* (74-106) mg/dL POC Glucose 273 H (74-106) MG/DL Calcium 8.8 (8.5-10.1) mg/dL Urine Color Yellow (YELLOW) Urine Appearance Clear (CLEAR) Urine pH 5.0 (5.0-8.0) Ur Specific [place] 1.015 (1.008-1.030) Urine Protein Negative (NEGATIVE) mg/dL Urine Glucose (UA) 500 H (NEGATIVE) mg/dL Urine Ketones Negative (NEGATIVE) mg/dL Urine Occult Blood Negative (NEGATIVE) Urine Nitrite Negative (NEGATIVE) Urine Bilirubin Negative (NEGATIVE) Urine Urobilinogen 0.2 (0.2-1.0) EU/dL Ur Leukocyte Esterase Negative (NEGATIVE) Urine RBC Not seen (0-5) Urine WBC 0-5 (0-5) Ur Epithelial Cells Few Amorphous Sediment Not seen Urine Bacteria Few Urine Mucus Not seen Meds: Medications Generic Name Dose Route Start Last Admin Trade Name Freq PRN Reason Stop Dose Admin Dextrose/Water 50 ml 06/22/20 15:25 Dextrose 50% In Water IVPUSH ASDIRECTED PRN Hypoglycemia Glucagon 1 mg 06/22/20 15:25 Glucagen IM ASDIRECTED PRN Hypoglycemia Potassium Chloride/Sodium Chloride 1,000 mls @ 500 mls/hr 06/22/20 15:30 06/22/20 16:10 Normal Saline With 20 Meq Kcl IV 500 mls/hr ASDIRECTED KINZA Administration Discontinued Medications Generic Name Dose Route Start Last Admin Trade Name Freq PRN Reason Stop Dose Admin Insulin Human Regular 14 unit 06/22/20 15:25 06/22/20 16:07 Humulin R SUBCUT 06/22/20 15:26 14 unit ONETIME ONE Administration Potassium Chloride 20 meq 06/22/20 15:43 06/22/20 16:10 Klor-Con M20 PO 06/22/20 15:44 20 meq ONETIME ONE Administration Departure - Departure Time of Disposition: 18:00 Disposition: Home, Self-Care 01 Condition: Fair Clinical Impression: Elevated blood sugar - Discharge Information *PRESCRIPTION DRUG MONITORING PROGRAM REVIEWED*: Not Applicable *COPY OF PRESCRIPTION DRUG MONITORING REPORT IN PATIENT MORENO: Not Applicable Referrals: Arelis Be MD [Primary Care Provider] - Forms: ED Department Discharge Additional Instructions: Resume your usual cares. Adjust your insulin as needed. Return as needed. Sepsis Event Note (ED) - Evaluation Sepsis Screening Result: No Definite Risk - Focused Exam Vital Signs: Vital Signs Temp Pulse Resp BP Pulse Ox 06/22/20 17:00 75 109/65 97 06/22/20 16:17 78 117/74 97 06/22/20 15:25 36.6 C 96 16 120/79 96 06/22/20 15:04 36.6 C 96 16 120/79 96 - My Orders Last 24 Hours: My Active Orders 06/22/20 15:25 Dextrose 50% in Water 50 ml IVPUSH ASDIRECTED PRN Glucagon,Human Recombinant [GlucaGen] 1 mg IM ASDIRECTED PRN 06/22/20 15:30 NS + KCl 20mEq/L [Normal Saline with 20 mEq KCl] 1,000 ml IV ASDIRECTED - Assessment/Plan Last 24 Hours: My Active Orders 06/22/20 15:25 Dextrose 50% in Water 50 ml IVPUSH ASDIRECTED PRN Glucagon,Human Recombinant [GlucaGen] 1 mg IM ASDIRECTED PRN 06/22/20 15:30 NS + KCl 20mEq/L [Normal Saline with 20 mEq KCl] 1,000 ml IV ASDIRECTED
[2020-06-22] MEDS ORDERED: Potassium Chloride 20 MEQ Tab.ER PO ONE (15:43)
[2020-06-22 17:26] VITALS: BP 109/65; PULSE 75
== END 2020-06-22 18:45 | disposition home or self-care (01) ==
LOC: JP.ED 14:43
DX: E10.65 Type 1 diabetes mellitus with hyperglycemia (principal)
CPT/HCPCS: 36415; 80048; 81001; 82962; 96365; 96366; 99283; A9270; J1815; J3480; 99284

== ENCOUNTER 2020-09-19 19:20 | Inpatient (IN) | payer BC ==
[2020-09-19] MEDS ORDERED: Sodium Chloride 0.9% 10 ML Syringe FLUSH PRN (19:41)
[2020-09-19] MEDS ORDERED: Ondansetron 4 MG/2 ML SDV IVPUSH ONE (19:45)
[2020-09-19] MEDS ORDERED: Sodium Chloride 0.9% 1,000 ML IV SCH ×3 (19:45→21:45)
--- NOTE | 2020-09-19 19:50 | EDM.PDOC ---
ED HPI GENERAL MEDICAL PROBLEM - General Chief Complaint: Diabetic Complaint Stated Complaint: HIGH BLOOD SUGAR Time Seen by Provider: 09/19/20 19:41 Source of Information: Reports: Patient, Family, RN Notes Reviewed History Limitations: Reports: No Limitations - History of Present Illness INITIAL COMMENTS - FREE TEXT/NARRATIVE: 25-year-old female known history of diabetes mellitus type 1 does have an insulin pump states over the last 24 hours has been having problems with her blood sugar, the insulin pump seems to be producing boluses she has been going to insulin however blood sugars not responding. She denies any recent fevers or other illnesses does have a history of urinary tract infections but nothing that she can pinpoint that would cause her blood sugars to be so far off. 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: t;slim, tandem - Past Surgical History Female Surgical History: Reports: Other (See Below) Social & Family History - Tobacco Use Tobacco Use Status *Q: Never Tobacco User - Caffeine Use Caffeine Use: Reports: Coffee ED ROS GENERAL - Review of Systems Review Of Systems: See Below Constitutional: Denies: Fever, Chills HEENT: Reports: No Symptoms Respiratory: Reports: No Symptoms Cardiovascular: Reports: No Symptoms Endocrine: Reports: High Glucose GI/Abdominal: Reports: Nausea, Vomiting : Reports: No Symptoms ED EXAM GENERAL NO PERIP PULSE - Physical Exam Exam: See Below Exam Limited By: No Limitations General Appearance: Alert, Mild Distress Respiratory/Chest: No Respiratory Distress, Lungs Clear, Normal Breath Sounds, No Accessory Muscle Use, Chest Non-Tender Cardiovascular: No Murmur, Tachycardia GI/Abdominal: Soft, Non-Tender Extremities: Normal Inspection, No Pedal Edema #1 Interpretation EKG Date: 09/19/20 Rhythm: NSR Ernul: Normal P-Wave: Present QRS: Normal ST-T: Normal QT: Normal Comparison: NA - No Prior EKG Course - Vital Signs Last Recorded V/S: Last Vital Signs Temp 97.0 F 09/19/20 19:48 Pulse 112 H 09/19/20 19:48 Resp 22 H 09/19/20 20:27 BP 125/62 09/19/20 20:27 Pulse Ox 100 09/19/20 20:27 - Orders/Labs/Meds Orders: Active Orders 24 hr Category Date Time Status Cardiac Monitoring [RC] CONTINUOUS Care 09/19/20 19:41 Active Communication Order [RC] STAT Care 09/19/20 19:41 Active Communication Order [RC] STAT Care 09/19/20 19:41 Active EKG Documentation Completion [RC] ASDIRECTED Care 09/19/20 20:29 Active Peripheral IV Care [RC] . DIRECTED Care 09/19/20 19:41 Active CULTURE BLOOD [BC] Urgent Lab 09/19/20 19:41 Ordered CULTURE BLOOD [BC] Urgent Lab 09/19/20 19:41 Ordered TROPONIN I [CHEM] Stat Lab 09/19/20 20:32 Received UA W/MICROSCOPIC [URIN] Stat Lab 09/19/20 20:15 Ordered Insulin Regular in 0.9 % NACL [Myxredlin in NS 100 UNIT Med 09/19/20 19:45 Active /100 ML] 100 unit in 100 ml IV ASDIRECTED Sodium Chloride 0.9% [Normal Saline] 1,000 ml Med 09/19/20 19:45 Active IV ASDIRECTED Sodium Chloride 0.9% [Saline Flush] Med 09/19/20 19:41 Active 10 ml FLUSH ASDIRECTED PRN Blood Culture x2 Reflex Set [OM.PC] Urgent Oth 09/19/20 19:41 Ordered Peripheral IV Insertion Adult [OM.PC] Stat Oth 09/19/20 19:41 Ordered Resuscitation Status Stat Resus Stat 09/19/20 19:41 Ordered EKG 12 Lead [EK] Stat Ther 09/19/20 20:29 Ordered Medication Orders Sodium Chloride (Normal Saline) 1,000 mls @ 999 mls/hr IV ASDIRECTED [facility] Last Admin: 09/19/20 19:54 Dose: 999 mls/hr Documented by: JOSÉ Insulin Regular in 0.9 % NACL (Myxredlin In Ns 100 Unit/100 Ml) 100 unit in 100 mls @ 12.068 mls/hr IV ASDIRECTED KINZA Last Admin: 09/19/20 20:02 Dose: 0.14 units/kg/hr, 12.068 mls/hr Documented by: JOSÉ Cosigned by: TOBI Sodium Chloride (Sodium Chloride 0.9% 10 Ml Syringe) 10 ml FLUSH ASDIRECTED PRN PRN Reason: Keep Vein Open Last Admin: 09/19/20 19:54 Dose: 10 ml Documented by: JOSÉ Labs: Laboratory Tests 09/19/20 09/19/20 09/19/20 Range/Units 19:41 20:09 20:09 WBC 27.2 H (4.5-11.0) K/uL RBC 5.41 (3.30-5.50) M/uL Hgb 15.7 H D (12.0-15.0) g/dL Hct 46.2 (36.0-48.0) % MCV 85 (80-98) fL MCH 29 (27-31) pg MCHC 34 (32-36) % Plt Count 381 (150-400) K/uL Neut % (Auto) 89 H (36-66) % Lymph % (Auto) 5 L (24-44) % [place] % (Auto) 6 (2-6) % Eos % (Auto) 0 L (2-4) % Baso % (Auto) 0 (0-1) % Puncture Site Rt radial ABG pH 7.083 L* (7.350-7.450) ABG pCO2 24.3 L (35.0-42.0) mmHg ABG pO2 65.8 L (75.0-100.0) mmHg ABG HCO3 6.9 L (22.0-26.0) mmol/L ABG Total CO2 6.6 L (21.0-25.0) mmol/L ABG O2 Saturation 85.4 L (95.0-98.0) % ABG O2 Content 17.6 (15.0-23.0) %vol ABG Base Excess -22.6 mm/L ABG Hemoglobin 14.9 (12.0-16.0) g/dL ABG Oxyhemoglobin 84.2 % ABG Carboxyhemoglobin 0.6 (0.0-1.6) % ABG Methemoglobin 0.8 % Jerry Test Passed O2 Delivery Device Room air Sodium 138 L (140-148) mmol/L Potassium 5.7 H (3.6-5.2) mmol/L Chloride 98 L (100-108) mmol/L Carbon Dioxide 10 L D (21-32) mmol/L Anion Gap 35.7 H (5.0-14.0) mmol/L BUN 22 H D (7-18) mg/dL Creatinine 1.4 H D (0.6-1.0) mg/dL Est Cr Clr Drug Dosing TNP Estimated GFR (MDRD) 47 L (>60) Glucose 449 H* (74-106) mg/dL Lactic Acid (0.4-2.0) mmol/L Calcium 9.9 (8.5-10.1) mg/dL Phosphorus 6.4 H (2.5-4.9) mg/dL Magnesium 2.0 (1.8-2.4) mg/dL Total Bilirubin 0.8 (0.2-1.0) mg/dL AST 24 (15-37) U/L ALT 59 (12-78) U/L Alkaline Phosphatase 223 H (46-116) U/L Total Protein 8.7 H (6.4-8.2) g/dL Albumin 4.6 (3.4-5.0) g/dL Globulin 4.1 H (2.3-3.5) g/dL Albumin/Globulin Ratio 1.1 L (1.2-2.2) Lipase (73-393) U/L Ketones (NEGATIVE) 09/19/20 09/19/20 09/19/20 Range/Units 20:09 20:09 20:09 WBC (4.5-11.0) K/uL RBC (3.30-5.50) M/uL Hgb (12.0-15.0) g/dL Hct (36.0-48.0) % MCV (80-98) fL MCH (27-31) pg MCHC (32-36) % Plt Count (150-400) K/uL Neut % (Auto) (36-66) % Lymph % (Auto) (24-44) % [place] % (Auto) (2-6) % Eos % (Auto) (2-4) % Baso % (Auto) (0-1) % Puncture Site ABG pH (7.350-7.450) ABG pCO2 (35.0-42.0) mmHg ABG pO2 (75.0-100.0) mmHg ABG HCO3 (22.0-26.0) mmol/L ABG Total CO2 (21.0-25.0) mmol/L ABG O2 Saturation (95.0-98.0) % ABG O2 Content (15.0-23.0) %vol ABG Base Excess mm/L ABG Hemoglobin (12.0-16.0) g/dL ABG Oxyhemoglobin % ABG Carboxyhemoglobin (0.0-1.6) % ABG Methemoglobin % Jerry Test O2 Delivery Device Sodium (140-148) mmol/L Potassium (3.6-5.2) mmol/L Chloride (100-108) mmol/L Carbon Dioxide (21-32) mmol/L Anion Gap (5.0-14.0) mmol/L BUN (7-18) mg/dL Creatinine (0.6-1.0) mg/dL Est Cr Clr Drug Dosing Estimated GFR (MDRD) (>60) Glucose (74-106) mg/dL Lactic Acid 5.9 H (0.4-2.0) mmol/L Calcium (8.5-10.1) mg/dL Phosphorus (2.5-4.9) mg/dL Magnesium (1.8-2.4) mg/dL Total Bilirubin (0.2-1.0) mg/dL AST (15-37) U/L ALT (12-78) U/L Alkaline Phosphatase (46-116) U/L Total Protein (6.4-8.2) g/dL Albumin (3.4-5.0) g/dL Globulin (2.3-3.5) g/dL Albumin/Globulin Ratio (1.2-2.2) Lipase 108 (73-393) U/L Ketones Small H (NEGATIVE) Meds: Medications Generic Name Dose Route Start Last Admin Trade Name Freq PRN Reason Stop Dose Admin Sodium Chloride 1,000 mls @ 999 mls/hr 09/19/20 19:45 09/19/20 19:54 Normal Saline IV 999 mls/hr ASDIRECTED KINZA Administration Insulin Regular in 0.9 % NACL 100 unit in 100 mls @ 12.068 mls/hr 09/19/20 19:45 09/19/20 20:02 Myxredlin In Ns 100 Unit/100 Ml IV 0.14 units/kg/hr ASDIRECTED KINZA 12.068 mls/hr Administration 0.14 UNITS/KG/HR Sodium Chloride 10 ml 09/19/20 19:41 09/19/20 19:54 Sodium Chloride 0.9% 10 Ml Syringe FLUSH 10 ml ASDIRECTED PRN Administration Keep Vein Open Discontinued Medications Generic Name Dose Route Start Last Admin Trade Name Freq PRN Reason Stop Dose Admin Ketorolac Tromethamine 30 mg 09/19/20 20:17 09/19/20 20:25 Ketorolac 30 Mg/Ml Sdv IVPUSH 09/19/20 20:18 30 mg ONETIME ONE Administration Ondansetron HCl 4 mg 09/19/20 19:45 09/19/20 19:54 Ondansetron 4 Mg/2 Ml Sdv IVPUSH 09/19/20 19:46 4 mg ONETIME ONE Administration Departure - Departure Time of Disposition: 20:43 Disposition: Admitted As Inpatient 68 Condition: Fair Clinical Impression: DKA (diabetic ketoacidoses) Qualifiers: Diabetes mellitus type: type 1 Diabetes mellitus complication detail: without coma Qualified Code(s): E10.10 - Type 1 diabetes mellitus with ketoacidosis without coma - Discharge Information Referrals: Taylor Abdalla NP [Primary Care Provider] - Forms: ED Department Discharge Sepsis Event Note (ED) - Focused Exam Vital Signs: Vital Signs Temp Pulse Resp BP Pulse Ox 09/19/20 20:27 22 H 125/62 100 09/19/20 19:48 97.0 F 112 H 19 128/65 100 - My Orders Last 24 Hours: My Active Orders 09/19/20 19:41 Cardiac Monitoring [RC] CONTINUOUS Communication Order [RC] STAT Communication Order [RC] STAT Peripheral IV Care [RC] . DIRECTED CULTURE BLOOD [BC] Urgent CULTURE BLOOD [BC] Urgent Sodium Chloride 0.9% [Saline Flush] 10 ml FLUSH ASDIRECTED PRN Blood Culture x2 Reflex Set [OM.PC] Urgent Peripheral IV Insertion Adult [OM.PC] Stat Resuscitation Status Stat 09/19/20 19:45 Insulin Regular in 0.9 % NACL [Myxredlin in NS 100 UNIT/100 ML] 100 unit in 100 ml IV ASDIRECTED Sodium Chloride 0.9% [Normal Saline] 1,000 ml IV ASDIRECTED 09/19/20 20:15 UA W/MICROSCOPIC [URIN] Stat 09/19/20 20:29 EKG Documentation Completion [RC] ASDIRECTED EKG 12 Lead [EK] Stat 09/19/20 20:32 TROPONIN I [CHEM] Stat - Assessment/Plan Last 24 Hours: My Active Orders 09/19/20 19:41 Cardiac Monitoring [RC] CONTINUOUS Communication Order [RC] STAT Communication Order [RC] STAT Peripheral IV Care [RC] . DIRECTED CULTURE BLOOD [BC] Urgent CULTURE BLOOD [BC] Urgent Sodium Chloride 0.9% [Saline Flush] 10 ml FLUSH ASDIRECTED PRN Blood Culture x2 Reflex Set [OM.PC] Urgent Peripheral IV Insertion Adult [OM.PC] Stat Resuscitation Status Stat 09/19/20 19:45 Insulin Regular in 0.9 % NACL [Myxredlin in NS 100 UNIT/100 ML] 100 unit in 100 ml IV ASDIRECTED Sodium Chloride 0.9% [Normal Saline] 1,000 ml IV ASDIRECTED 09/19/20 20:15 UA W/MICROSCOPIC [URIN] Stat 09/19/20 20:29 EKG Documentation Completion [RC] ASDIRECTED EKG 12 Lead [EK] Stat 09/19/20 20:32 TROPONIN I [CHEM] Stat Plan: Assessment Acuity = acute Site and laterality = better ketoacidosis Etiology = unknown Manifestations = tachycardia Location of injury = Home Lab values = WBC elevated 27.0 consistent leukocytosis ABG reveals a pH of 7.47 PCO2 24.3 and a bicarb of 6.9 consistent with metabolic acidosis, potassium elevated 5.7 consistent hyperkalemia creatinine elevated 1.4 consistent with acute renal failure stage G3 a lactic acid elevated 5.9 consistent with lactic acidosis phosphorus elevated 6.4 consistent with hypophosphatemia ketones small blood cultures are pending urinalysis pending EKG demonstrates a sinus rhythm no ST elevations or depressions Plan Call discussed case hospitalist on-call at [phone] currently agreed to come to the emergency department evaluate the patient for admission This note was dictated using [employer] voice recognition software please call with any questions on syntax or grammar.
[2020-09-19] MEDS ORDERED: Ketorolac 30 MG/ML SDV IVPUSH ONE (20:17)
--- NOTE | 2020-09-19 21:32 | PCM.HP.2 ---
H&P History of Present Illness - General Date of Service: 09/19/20 Admit Problem/Dx: Admission Diagnosis/Problem Admission Diagnosis/Problem Diabetic ketoacidosis Source of Information: Patient, Family, Provider History Limitations: Reports: No Limitations - History of Present Illness Initial Comments - Free Text/Narative: CC: My sugar wouldn't come down HPI: Abbi presents to the emergency room today with weakness, nausea, vomiting and hyperglycemia. She reports that she changed her injection site yesterday morning. Since that time she has had a steady rise in her blood sugar. Yesterday evening she was worried that she may have a bad needle and changed out her injection site. Despite this her blood sugar continued to rise. Last night around 11 PM, about 20 hours before presentation she developed nausea and some vomiting. She had intermittent vomiting throughout the night and into the morning and throughout today. She did change her insulin pump needle a third time today and initially had some improvement in her blood sugar but then a steady rise again. She reports a moderate generalized achy headache. This is better after she received a dose of Toradol. No obvious trigger to make it worse. She has some intermittent short lasting pain in her lower chest that she thinks could be related to vomiting. She has not had diarrhea. She has had inc reased urinary frequency but no urgency or dysuria. No fevers. No cough. She does feel short of breath. Work-up in the emergency room revealed evidence for diabetic ketoacidosis with a pH of 7.0 as well as acute kidney injury and hyperkalemia. She is quite dehydrated. She will be admitted for further management. She did receive IV insulin via infusion in the emergency room. 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: Reports: Endometriosis, Musculoskeletal History: Reports: Arthritis, Fracture Endocrine/Metabolic History: Reports: Diabetes, Type I Insulin Pump Model and [employer] Repairer: tandem t-slim X2 Type of Insulin Used in Pump: novolog When was Your Last Insulin Site/Set Changed: today Do You Have Enough Pump Supplies for Your Hospital Stay: Yes Who Manages Your Pump: Family/Caregiver, Patient (Self) Basal Rate (Units/hr): 1.2 Units of Insulin Per Gram of Carbohydrates:: 1-9 Amount of Insulin Given with Breakfast (Units): 0 Amount of Insulin Given with Lunch (Units): 0 Amount of Insulin Given with Dinner (Units): 0 Do You Give Correction Boluses or Sliding Scale: Yes Patient/Family Able to Supply Written Copy of Sliding Scale: No Amount (Units): 1 For Every mg/dl: 50 Glucose Above mg/dl: 110 Patient Able to Demonstrate: Current Pump Settings (Basal Rates), Describe How to Change Infusion Set & Insertion Set - Past Surgical History Female Surgical History: Reports: Other (See Below) Social & Family History - Family History Endocrine/Metabolic: Reports: Diabetes, type II (Maternal uncle) - Tobacco Use Tobacco Use Status *Q: Never Tobacco User - Caffeine Use Caffeine Use: Reports: Coffee H&P Review of Systems - Review of Systems: Review Of Systems: See Below Free Text/Narrative: A complete 12 point review of systems was obtained. Pertinent positives and negatives are noted in the history of present illness. All other systems were reviewed and were negative except as noted. Exam - Exam Exam: See Below - Vital Signs Vital Signs: Last Vital Signs Temp 36.1 C 09/19/20 19:48 Pulse 112 H 09/19/20 19:48 Resp 22 H 09/19/20 20:27 BP 125/62 09/19/20 20:27 Pulse Ox 100 09/19/20 20:27 Weight: 86.183 kg - Exam Quality Assessment: No: Supplemental Oxygen General: Alert, Oriented, Cooperative, Mild Distress HEENT: Conjunctiva Clear. No: Mucosa Moist & Crucible (Dry), Scleral Icterus Neck: Supple, Trachea Midline. No: Lymphadenopathy Lungs: Clear to Auscultation, Normal Respiratory Effort Cardiovascular: Regular Rhythm, Tachycardia. No: Systolic Murmur GI/Abdominal Exam: Normal Bowel Sounds, Soft, No Distention, Tender (Mild suprapubic) Back Exam: Normal Inspection, Full Range of Motion Extremities: No Pedal Edema. No: Joint Swelling, Increased Warmth Peripheral Pulses: 2+: Dorsalis Pedis (L), Dorsalis Pedis (R) Skin: Warm, Dry. No: Rash Neuro Extensive - Mental Status: Alert, Oriented x3, Nl Response to Commands Neuro Extensive - Motor, Sensory, Reflexes: No: Dysarthria, Abnormal Motor, Tremor Psychiatric: Alert, Normal Affect - Patient Data Lab Results Last 24 hrs: Laboratory Results - last 24 hr 09/19/20 09/19/20 09/19/20 Range/Units 19:41 20:09 20:09 WBC 27.2 H (4.5-11.0) K/uL RBC 5.41 (3.30-5.50) M/uL Hgb 15.7 H D (12.0-15.0) g/dL Hct 46.2 (36.0-48.0) % MCV 85 (80-98) fL MCH 29 (27-31) pg MCHC 34 (32-36) % Plt Count 381 (150-400) K/uL Neut % (Auto) 89 H (36-66) % Lymph % (Auto) 5 L (24-44) % Dawson % (Auto) 6 (2-6) % Eos % (Auto) 0 L (2-4) % Baso % (Auto) 0 (0-1) % Puncture Site Rt radial ABG pH 7.083 L* (7.350-7.450) ABG pCO2 24.3 L (35.0-42.0) mmHg ABG pO2 65.8 L (75.0-100.0) mmHg ABG HCO3 6.9 L (22.0-26.0) mmol/L ABG Total CO2 6.6 L (21.0-25.0) mmol/L ABG O2 Saturation 85.4 L (95.0-98.0) % ABG O2 Content 17.6 (15.0-23.0) %vol ABG Base Excess -22.6 mm/L ABG Hemoglobin 14.9 (12.0-16.0) g/dL ABG Oxyhemoglobin 84.2 % ABG Carboxyhemoglobin 0.6 (0.0-1.6) % ABG Methemoglobin 0.8 % Jerry Test Passed O2 Delivery Device Room air Sodium 138 L (140-148) mmol/L Potassium 5.7 H (3.6-5.2) mmol/L Chloride 98 L (100-108) mmol/L Carbon Dioxide 10 L D (21-32) mmol/L Anion Gap 35.7 H (5.0-14.0) mmol/L BUN 22 H D (7-18) mg/dL Creatinine 1.4 H D (0.6-1.0) mg/dL Est Cr Clr Drug Dosing TNP Estimated GFR (MDRD) 47 L (>60) Glucose 449 H* (74-106) mg/dL Lactic Acid (0.4-2.0) mmol/L Calcium 9.9 (8.5-10.1) mg/dL Phosphorus 6.4 H (2.5-4.9) mg/dL Magnesium 2.0 (1.8-2.4) mg/dL Total Bilirubin 0.8 (0.2-1.0) mg/dL AST 24 (15-37) U/L ALT 59 (12-78) U/L Alkaline Phosphatase 223 H (46-116) U/L Troponin I (0.000-0.056) ng/mL Total Protein 8.7 H (6.4-8.2) g/dL Albumin 4.6 (3.4-5.0) g/dL Globulin 4.1 H (2.3-3.5) g/dL Albumin/Globulin Ratio 1.1 L (1.2-2.2) Lipase (73-393) U/L Urine Color (YELLOW) Urine Appearance (CLEAR) Urine pH (5.0-8.0) Ur Specific Dwight (1.008-1.030) Urine Protein (NEGATIVE) mg/dL Urine Glucose (UA) (NEGATIVE) mg/dL Urine Ketones (NEGATIVE) mg/dL Urine Occult Blood (NEGATIVE) Urine Nitrite (NEGATIVE) Urine Bilirubin (NEGATIVE) Urine Urobilinogen (0.2-1.0) EU/dL Ur Leukocyte Esterase (NEGATIVE) Urine RBC (0-5) Urine WBC (0-5) Ur Epithelial Cells Amorphous Sediment Urine Bacteria Urine Mucus Ketones (NEGATIVE) 09/19/20 09/19/20 09/19/20 Range/Units 20:09 20:09 20:09 WBC (4.5-11.0) K/uL RBC (3.30-5.50) M/uL Hgb (12.0-15.0) g/dL Hct (36.0-48.0) % MCV (80-98) fL MCH (27-31) pg MCHC (32-36) % Plt Count (150-400) K/uL Neut % (Auto) (36-66) % Lymph % (Auto) (24-44) % Dawson % (Auto) (2-6) % Eos % (Auto) (2-4) % Baso % (Auto) (0-1) % Puncture Site ABG pH (7.350-7.450) ABG pCO2 (35.0-42.0) mmHg ABG pO2 (75.0-100.0) mmHg ABG HCO3 (22.0-26.0) mmol/L ABG Total CO2 (21.0-25.0) mmol/L ABG O2 Saturation (95.0-98.0) % ABG O2 Content (15.0-23.0) %vol ABG Base Excess mm/L ABG Hemoglobin (12.0-16.0) g/dL ABG Oxyhemoglobin % ABG Carboxyhemoglobin (0.0-1.6) % ABG Methemoglobin % Jerry Test O2 Delivery Device Sodium (140-148) mmol/L Potassium (3.6-5.2) mmol/L Chloride (100-108) mmol/L Carbon Dioxide (21-32) mmol/L Anion Gap (5.0-14.0) mmol/L BUN (7-18) mg/dL Creatinine (0.6-1.0) mg/dL Est Cr Clr Drug Dosing Estimated GFR (MDRD) (>60) Glucose (74-106) mg/dL Lactic Acid 5.9 H (0.4-2.0) mmol/L Calcium (8.5-10.1) mg/dL Phosphorus (2.5-4.9) mg/dL Magnesium (1.8-2.4) mg/dL Total Bilirubin (0.2-1.0) mg/dL AST (15-37) U/L ALT (12-78) U/L Alkaline Phosphatase (46-116) U/L Troponin I (0.000-0.056) ng/mL Total Protein (6.4-8.2) g/dL Albumin (3.4-5.0) g/dL Globulin (2.3-3.5) g/dL Albumin/Globulin Ratio (1.2-2.2) Lipase 108 (73-393) U/L Urine Color (YELLOW) Urine Appearance (CLEAR) Urine pH (5.0-8.0) Ur Specific Dw[place] (1.008-1.030) Urine Protein (NEGATIVE) mg/dL Urine Glucose (UA) (NEGATIVE) mg/dL Urine Ketones (NEGATIVE) mg/dL Urine Occult Blood (NEGATIVE) Urine Nitrite (NEGATIVE) Urine Bilirubin (NEGATIVE) Urine Urobilinogen (0.2-1.0) EU/dL Ur Leukocyte Esterase (NEGATIVE) Urine RBC (0-5) Urine WBC (0-5) Ur Epithelial Cells Amorphous Sediment Urine Bacteria Urine Mucus Ketones Small H (NEGATIVE) 09/19/20 09/19/20 Range/Units 20:15 20:32 WBC (4.5-11.0) K/uL RBC (3.30-5.50) M/uL Hgb (12.0-15.0) g/dL Hct (36.0-48.0) % MCV (80-98) fL MCH (27-31) pg MCHC (32-36) % Plt Count (150-400) K/uL Neut % (Auto) (36-66) % Lymph % (Auto) (24-44) % Dawson % (Auto) (2-6) % Eos % (Auto) (2-4) % Baso % (Auto) (0-1) % Puncture Site ABG pH (7.350-7.450) ABG pCO2 (35.0-42.0) mmHg ABG pO2 (75.0-100.0) mmHg ABG HCO3 (22.0-26.0) mmol/L ABG Total CO2 (21.0-25.0) mmol/L ABG O2 Saturation (95.0-98.0) % ABG O2 Content (15.0-23.0) %vol ABG Base Excess mm/L ABG Hemoglobin (12.0-16.0) g/dL ABG Oxyhemoglobin % ABG Carboxyhemoglobin (0.0-1.6) % ABG Methemoglobin % Jerry Test O2 Delivery Device Sodium (140-148) mmol/L Potassium (3.6-5.2) mmol/L Chloride (100-108) mmol/L Carbon Dioxide (21-32) mmol/L Anion Gap (5.0-14.0) mmol/L BUN (7-18) mg/dL Creatinine (0.6-1.0) mg/dL Est Cr Clr Drug Dosing Estimated GFR (MDRD) (>60) Glucose (74-106) mg/dL Lactic Acid (0.4-2.0) mmol/L Calcium (8.5-10.1) mg/dL Phosphorus (2.5-4.9) mg/dL Magnesium (1.8-2.4) mg/dL Total Bilirubin (0.2-1.0) mg/dL AST (15-37) U/L ALT (12-78) U/L Alkaline Phosphatase (46-116) U/L Troponin I < 0.017 (0.000-0.056) ng/mL Total Protein (6.4-8.2) g/dL Albumin (3.4-5.0) g/dL Globulin (2.3-3.5) g/dL Albumin/Globulin Ratio (1.2-2.2) Lipase (73-393) U/L Urine Color Yellow (YELLOW) Urine Appearance Clear (CLEAR) Urine pH 5.0 (5.0-8.0) Ur Specific Dwight >= 1.030 (1.008-1.030) Urine Protein 30 H (NEGATIVE) mg/dL Urine Glucose (UA) 500 H (NEGATIVE) mg/dL Urine Ketones 80 H (NEGATIVE) mg/dL Urine Occult Blood Trace-intact H (NEGATIVE) Urine Nitrite Negative (NEGATIVE) Urine Bilirubin Negative (NEGATIVE) Urine Urobilinogen 0.2 (0.2-1.0) EU/dL Ur Leukocyte Esterase Negative (NEGATIVE) Urine RBC 0-5 (0-5) Urine WBC Not seen (0-5) Ur Epithelial Cells Occasional Amorphous Sediment Rare Urine Bacteria Rare Urine Mucus Occasional Ketones (NEGATIVE) Result Diagrams: 09/19/20 20:09 09/19/20 20:09 #1 Interpretation EKG Date: 09/19/20 Rhythm: Other (sinus tachycardia) Rate (Beats/Min): 112 [place]: Normal P-Wave: Present QRS: Normal ST-T: Normal QT: Normal Comparison: NA - No Prior EKG EKG Interpretation Comments: I personally reviewed this image Sepsis Event Note - Evaluation Sepsis Screening Result: No Definite Risk - Focused Exam Vital Signs: Vital Signs Temp Pulse Resp BP Pulse Ox 09/19/20 20:27 22 H 125/62 100 09/19/20 19:48 36.1 C 112 H 19 128/65 100 *Q Meaningful Use (ADM) - VTE Risk Assess *Q Each Risk Factor Represents 1 Point: Obesity ( BMI > 25 kg/m2) Total Score 1 Point Risk Factors: 1 Each Risk Factor Represents 2 Points: None Total Score 2 Point Risk Factors: 0 Each Risk Factor Represents 3 Points: None Total Score 3 Point Risk Factors: 0 Each Risk Factor Represents 5 Points: None Total Score 5 Point Risk Factors: 0 Venous Thromboembolism Risk Factor Score *Q: 1 - Problem List (1) DKA (diabetic ketoacidoses) SNOMED Code(s): 813700231, 399653951 ICD Code: E11.10 - TYPE 2 DIABETES MELLITUS WITH KETOACIDOSIS WITHOUT COMA Status: Acute Current Visit: Yes Qualifiers: Diabetes mellitus type: type 1 Diabetes mellitus complication detail: without coma Qualified Code(s): E10.10 - Type 1 diabetes mellitus with ketoacidosis without coma (2) Acute kidney injury SNOMED Code(s): 49751578, 39671737 ICD Code: N17.9 - ACUTE KIDNEY FAILURE, UNSPECIFIED Status: Acute Current Visit: Yes (3) Hyperkalemia SNOMED Code(s): 99475254 ICD Code: E87.5 - HYPERKALEMIA Status: Acute Current Visit: Yes Problem List Initiated/Reviewed/Updated: Yes Orders Last 24hrs: Active Orders 24 hr Category Date Time Status Patient Status Manage Transfer [TRANSFER] Routine ADT 09/19/20 21:21 Ordered Cardiac Monitoring [RC] CONTINUOUS Care 09/19/20 19:41 Active Communication Order [RC] STAT Care 09/19/20 19:41 Active Communication Order [RC] STAT Care 09/19/20 19:41 Active EKG Documentation Completion [RC] ASDIRECTED Care 09/19/20 20:29 Active Peripheral IV Care [RC] . DIRECTED Care 09/19/20 19:41 Active CULTURE BLOOD [BC] Urgent Lab 09/19/20 19:41 Ordered CULTURE BLOOD [BC] Urgent Lab 09/19/20 19:41 Ordered Insulin Regular in 0.9 % NACL [Myxredlin in NS 100 UNIT Med 09/19/20 19:45 Active /100 ML] 100 unit in 100 ml IV ASDIRECTED Sodium Chloride 0.9% [Normal Saline] 1,000 ml Med 09/19/20 19:45 Active IV ASDIRECTED Sodium Chloride 0.9% [Normal Saline] 1,000 ml Med 09/19/20 21:30 Active IV ASDIRECTED Sodium Chloride 0.9% [Saline Flush] Med 09/19/20 19:41 Active 10 ml FLUSH ASDIRECTED PRN Blood Culture x2 Reflex Set [OM.PC] Urgent Oth 09/19/20 19:41 Ordered Peripheral IV Insertion Adult [OM.PC] Stat Oth 09/19/20 19:41 Ordered Resuscitation Status Stat Resus Stat 09/19/20 19:41 Ordered EKG 12 Lead [EK] Stat Ther 09/19/20 20:29 Ordered Medication Orders Sodium Chloride (Normal Saline) 1,000 mls @ 999 mls/hr IV ASDIRECTED [facility] Last Admin: 09/19/20 19:54 Dose: 999 mls/hr Documented by: JOSÉ Insulin Regular in 0.9 % NACL (Myxredlin In Ns 100 Unit/100 Ml) 100 unit in 100 mls @ 12.068 mls/hr IV ASDIRECTED [facility] Last Admin: 09/19/20 20:02 Dose: 0.14 units/kg/hr, 12.068 mls/hr Documented by: JOSÉ Cosigned by: TOBI Sodium Chloride (Normal Saline) 1,000 mls @ 999 mls/hr IV ASDIRECTED [facility] Stop: 09/19/20 22:31 Last Admin: 09/19/20 21:27 Dose: 999 mls/hr Documented by: JOSÉ Sodium Chloride (Sodium Chloride 0.9% 10 Ml Syringe) 10 ml FLUSH ASDIRECTED PRN PRN Reason: Keep Vein Open Last Admin: 09/19/20 19:54 Dose: 10 ml Documented by: JOSÉ Assessment/Plan Comment:: ASSESSMENT AND PLAN - Type 1 diabetes mellitus with ketoacidosis-severe acidosis with a pH of 7.0. I suspect the DKA is a result of equipment malfunction with a kinked needle resulting in impaired delivery of insulin. No evidence for infection. Feeling better after 1 L of fluids and some ondansetron as well as ketorolac. Sugar is normally very well controlled. I anticipate we will need to use dextrose containing fluids once her blood sugar gets lower because of the large anion gap. -Low-dose insulin infusion -Accu-Cheks every hour -Second 1 L bolus in the emergency room -BMP every 4 hours starting at 12:30 AM -Normal saline for now, anticipate transition to D5 NS when blood sugar below 200 -Transition back to insulin pump once her anion gap has normalized and symptoms have improved Acute kidney injury-secondary to dehydration in the setting of DKA. -Aggressive IV fluids -Repeat labs in the morning Hyperkalemia-secondary to hyperglycemia and acidosis. -Management as above -Repeat potassium level at 12:30 AM Maintenance issues - -DVT prophylaxis-mechanical -GI prophylaxis-PPI x1 this evening -Nutrition-clear liquids for now -Mendez catheter-not indicated CODE STATUS -full code Admission justification -this patient will be admitted for inpatient services and is medically appropriate meeting medical necessity for inpatient admission as outlined in my documentation. I reasonably expect the patient will require inpatient services that span a period time over 2 midnights. I reasonably expect this patient to be discharged or transferred within 96 hours after admission to the [facility]. Disposition -I anticipate discharge home after the hospital stay Esau Cid M.D. - Mortality Measure Prognosis:: Good
[2020-09-19] MEDS ORDERED: Ondansetron 4 MG Tab.DIS PO PRN (21:45)
[2020-09-19] MEDS ORDERED: Acetaminophen 325 MG Tab PO PRN (21:45)
[2020-09-19] MEDS ORDERED: Ondansetron 4 MG/2 ML SDV IV PRN (21:45)
[2020-09-19] MEDS ORDERED: LORazepam 2 MG/ML SDV IVPUSH PRN (21:45)
[2020-09-19] MEDS ORDERED: Pantoprazole 40 MG Vial IV ONE (22:00)
[2020-09-19] MEDS: Insulin Regular in 0.9 % NACL 100 ML IV SCH (23:06)
[2020-09-20] MEDS ORDERED: Dextrose 5%-0.9% NaCl 1,000 ML IV SCH ×2 (01:15→09:15)
[2020-09-20] MEDS ORDERED: Ibuprofen 600 MG Tab PO PRN (02:30)
--- NOTE | 2020-09-20 13:34 | PCM.PN ---
- Patient Data Vitals - Most Recent: Last Vital Signs Temp 36.4 C 09/20/20 11:24 Pulse 100 09/20/20 13:00 Resp 18 09/20/20 13:00 BP 104/59 L 09/20/20 13:00 Pulse Ox 97 09/20/20 13:00 Weight - Most Recent: 86.1 kg I&O - Last 24 Hours: Intake & Output 09/19/20 09/20/20 09/20/20 22:59 06:59 14:59 Intake Total 1847 560 Output Total 500 500 525 Balance -500 1347 35 Lab Results Last 24 Hours: Laboratory Results - last 24 hr 09/19/20 09/19/20 09/19/20 Range/Units 19:41 20:09 20:09 WBC 27.2 H (4.5-11.0) K/uL RBC 5.41 (3.30-5.50) M/uL Hgb 15.7 H D (12.0-15.0) g/dL Hct 46.2 (36.0-48.0) % MCV 85 (80-98) fL MCH 29 (27-31) pg MCHC 34 (32-36) % Plt Count 381 (150-400) K/uL Neut % (Auto) 89 H (36-66) % Lymph % (Auto) 5 L (24-44) % [place] % (Auto) 6 (2-6) % Eos % (Auto) 0 L (2-4) % Baso % (Auto) 0 (0-1) % Puncture Site Rt radial ABG pH 7.083 L* (7.350-7.450) ABG pCO2 24.3 L (35.0-42.0) mmHg ABG pO2 65.8 L (75.0-100.0) mmHg ABG HCO3 6.9 L (22.0-26.0) mmol/L ABG Total CO2 6.6 L (21.0-25.0) mmol/L ABG O2 Saturation 85.4 L (95.0-98.0) % ABG O2 Content 17.6 (15.0-23.0) %vol ABG Base Excess -22.6 mm/L ABG Hemoglobin 14.9 (12.0-16.0) g/dL ABG Oxyhemoglobin 84.2 % ABG Carboxyhemoglobin 0.6 (0.0-1.6) % ABG Methemoglobin 0.8 % Jerry Test Passed O2 Delivery Device Room air Sodium 138 L (140-148) mmol/L Potassium 5.7 H (3.6-5.2) mmol/L Chloride 98 L (100-108) mmol/L Carbon Dioxide 10 L D (21-32) mmol/L Anion Gap 35.7 H (5.0-14.0) mmol/L BUN 22 H D (7-18) mg/dL Creatinine 1.4 H D (0.6-1.0) mg/dL Est Cr Clr Drug Dosing TNP Estimated GFR (MDRD) 47 L (>60) Glucose 449 H* (74-106) mg/dL POC Glucose (74-106) mg/dL Lactic Acid (0.4-2.0) mmol/L Calcium 9.9 (8.5-10.1) mg/dL Phosphorus 6.4 H (2.5-4.9) mg/dL Magnesium 2.0 (1.8-2.4) mg/dL Total Bilirubin 0.8 (0.2-1.0) mg/dL AST 24 (15-37) U/L ALT 59 (12-78) U/L Alkaline Phosphatase 223 H (46-116) U/L Troponin I (0.000-0.056) ng/mL Total Protein 8.7 H (6.4-8.2) g/dL Albumin 4.6 (3.4-5.0) g/dL Globulin 4.1 H (2.3-3.5) g/dL Albumin/Globulin Ratio 1.1 L (1.2-2.2) Lipase (73-393) U/L Urine Color (YELLOW) Urine Appearance (CLEAR) Urine pH (5.0-8.0) Ur Specific [place] (1.008-1.030) Urine Protein (NEGATIVE) mg/dL Urine Glucose (UA) (NEGATIVE) mg/dL Urine Ketones (NEGATIVE) mg/dL Urine Occult Blood (NEGATIVE) Urine Nitrite (NEGATIVE) Urine Bilirubin (NEGATIVE) Urine Urobilinogen (0.2-1.0) EU/dL Ur Leukocyte Esterase (NEGATIVE) Urine RBC (0-5) Urine WBC (0-5) Ur Epithelial Cells Amorphous Sediment Urine Bacteria Urine Mucus Ketones (NEGATIVE) 09/19/20 09/19/20 09/19/20 Range/Units 20:09 20:09 20:09 WBC (4.5-11.0) K/uL RBC (3.30-5.50) M/uL Hgb (12.0-15.0) g/dL Hct (36.0-48.0) % MCV (80-98) fL MCH (27-31) pg MCHC (32-36) % Plt Count (150-400) K/uL Neut % (Auto) (36-66) % Lymph % (Auto) (24-44) % [place] % (Auto) (2-6) % Eos % (Auto) (2-4) % Baso % (Auto) (0-1) % Puncture Site ABG pH (7.350-7.450) ABG pCO2 (35.0-42.0) mmHg ABG pO2 (75.0-100.0) mmHg ABG HCO3 (22.0-26.0) mmol/L ABG Total CO2 (21.0-25.0) mmol/L ABG O2 Saturation (95.0-98.0) % ABG O2 Content (15.0-23.0) %vol ABG Base Excess mm/L ABG Hemoglobin (12.0-16.0) g/dL ABG Oxyhemoglobin % ABG Carboxyhemoglobin (0.0-1.6) % ABG Methemoglobin % Jerry Test O2 Delivery Device Sodium (140-148) mmol/L Potassium (3.6-5.2) mmol/L Chloride (100-108) mmol/L Carbon Dioxide (21-32) mmol/L Anion Gap (5.0-14.0) mmol/L BUN (7-18) mg/dL Creatinine (0.6-1.0) mg/dL Est Cr Clr Drug Dosing Estimated GFR (MDRD) (>60) Glucose (74-106) mg/dL POC Glucose (74-106) mg/dL Lactic Acid 5.9 H (0.4-2.0) mmol/L Calcium (8.5-10.1) mg/dL Phosphorus (2.5-4.9) mg/dL Magnesium (1.8-2.4) mg/dL Total Bilirubin (0.2-1.0) mg/dL AST (15-37) U/L ALT (12-78) U/L Alkaline Phosphatase (46-116) U/L Troponin I (0.000-0.056) ng/mL Total Protein (6.4-8.2) g/dL Albumin (3.4-5.0) g/dL Globulin (2.3-3.5) g/dL Albumin/Globulin Ratio (1.2-2.2) Lipase 108 (73-393) U/L Urine Color (YELLOW) Urine Appearance (CLEAR) Urine pH (5.0-8.0) Ur Specific [place] (1.008-1.030) Urine Protein (NEGATIVE) mg/dL Urine Glucose (UA) (NEGATIVE) mg/dL Urine Ketones (NEGATIVE) mg/dL Urine Occult Blood (NEGATIVE) Urine Nitrite (NEGATIVE) Urine Bilirubin (NEGATIVE) Urine Urobilinogen (0.2-1.0) EU/dL Ur Leukocyte Esterase (NEGATIVE) Urine RBC (0-5) Urine WBC (0-5) Ur Epithelial Cells Amorphous Sediment Urine Bacteria Urine Mucus Ketones Small H (NEGATIVE) 09/19/20 09/19/20 09/19/20 Range/Units 20:15 20:32 22:02 WBC (4.5-11.0) K/uL RBC (3.30-5.50) M/uL Hgb (12.0-15.0) g/dL Hct (36.0-48.0) % MCV (80-98) fL MCH (27-31) pg MCHC (32-36) % Plt Count (150-400) K/uL Neut % (Auto) (36-66) % Lymph % (Auto) (24-44) % [place] % (Auto) (2-6) % Eos % (Auto) (2-4) % Baso % (Auto) (0-1) % Puncture Site ABG pH (7.350-7.450) ABG pCO2 (35.0-42.0) mmHg ABG pO2 (75.0-100.0) mmHg ABG HCO3 (22.0-26.0) mmol/L ABG Total CO2 (21.0-25.0) mmol/L ABG O2 Saturation (95.0-98.0) % ABG O2 Content (15.0-23.0) %vol ABG Base Excess mm/L ABG Hemoglobin (12.0-16.0) g/dL ABG Oxyhemoglobin % ABG Carboxyhemoglobin (0.0-1.6) % ABG Methemoglobin % Jerry Test O2 Delivery Device Sodium (140-148) mmol/L Potassium (3.6-5.2) mmol/L Chloride (100-108) mmol/L Carbon Dioxide (21-32) mmol/L Anion Gap (5.0-14.0) mmol/L BUN (7-18) mg/dL Creatinine (0.6-1.0) mg/dL Est Cr Clr Drug Dosing Estimated GFR (MDRD) (>60) Glucose (74-106) mg/dL POC Glucose 278 H (74-106) mg/dL Lactic Acid (0.4-2.0) mmol/L Calcium (8.5-10.1) mg/dL Phosphorus (2.5-4.9) mg/dL Magnesium (1.8-2.4) mg/dL Total Bilirubin (0.2-1.0) mg/dL AST (15-37) U/L ALT (12-78) U/L Alkaline Phosphatase (46-116) U/L Troponin I < 0.017 (0.000-0.056) ng/mL Total Protein (6.4-8.2) g/dL Albumin (3.4-5.0) g/dL Globulin (2.3-3.5) g/dL Albumin/Globulin Ratio (1.2-2.2) Lipase (73-393) U/L Urine Color Yellow (YELLOW) Urine Appearance Clear (CLEAR) Urine pH 5.0 (5.0-8.0) Ur Specific [place] >= 1.030 (1.008-1.030) Urine Protein 30 H (NEGATIVE) mg/dL Urine Glucose (UA) 500 H (NEGATIVE) mg/dL Urine Ketones 80 H (NEGATIVE) mg/dL Urine Occult Blood Trace-intact H (NEGATIVE) Urine Nitrite Negative (NEGATIVE) Urine Bilirubin Negative (NEGATIVE) Urine Urobilinogen 0.2 (0.2-1.0) EU/dL Ur Leukocyte Esterase Negative (NEGATIVE) Urine RBC 0-5 (0-5) Urine WBC Not seen (0-5) Ur Epithelial Cells Occasional Amorphous Sediment Rare Urine Bacteria Rare Urine Mucus Occasional Ketones (NEGATIVE) 09/19/20 09/20/20 09/20/20 Range/Units 23:04 00:14 00:20 WBC (4.5-11.0) K/uL RBC (3.30-5.50) M/uL Hgb (12.0-15.0) g/dL Hct (36.0-48.0) % MCV (80-98) fL MCH (27-31) pg MCHC (32-36) % Plt Count (150-400) K/uL Neut % (Auto) (36-66) % Lymph % (Auto) (24-44) % [place] % (Auto) (2-6) % Eos % (Auto) (2-4) % Baso % (Auto) (0-1) % Puncture Site ABG pH (7.350-7.450) ABG pCO2 (35.0-42.0) mmHg ABG pO2 (75.0-100.0) mmHg ABG HCO3 (22.0-26.0) mmol/L ABG Total CO2 (21.0-25.0) mmol/L ABG O2 Saturation (95.0-98.0) % ABG O2 Content (15.0-23.0) %vol ABG Base Excess mm/L ABG Hemoglobin (12.0-16.0) g/dL ABG Oxyhemoglobin % ABG Carboxyhemoglobin (0.0-1.6) % ABG Methemoglobin % Jerry Test O2 Delivery Device Sodium 142 (140-148) mmol/L Potassium 5.0 (3.6-5.2) mmol/L Chloride 109 H (100-108) mmol/L Carbon Dioxide 10 L (21-32) mmol/L Anion Gap 28.0 H (5.0-14.0) mmol/L BUN 17 (7-18) mg/dL Creatinine 1.0 (0.6-1.0) mg/dL Est Cr Clr Drug Dosing 78.60 Estimated GFR (MDRD) > 60 (>60) Glucose 165 H (74-106) mg/dL POC Glucose 227 H 161 H (74-106) mg/dL Lactic Acid (0.4-2.0) mmol/L Calcium 8.7 (8.5-10.1) mg/dL Phosphorus (2.5-4.9) mg/dL Magnesium (1.8-2.4) mg/dL Total Bilirubin (0.2-1.0) mg/dL AST (15-37) U/L ALT (12-78) U/L Alkaline Phosphatase (46-116) U/L Troponin I (0.000-0.056) ng/mL Total Protein (6.4-8.2) g/dL Albumin (3.4-5.0) g/dL Globulin (2.3-3.5) g/dL Albumin/Globulin Ratio (1.2-2.2) Lipase (73-393) U/L Urine Color (YELLOW) Urine Appearance (CLEAR) Urine pH (5.0-8.0) Ur Specific [place] (1.008-1.030) Urine Protein (NEGATIVE) mg/dL Urine Glucose (UA) (NEGATIVE) mg/dL Urine Ketones (NEGATIVE) mg/dL Urine Occult Blood (NEGATIVE) Urine Nitrite (NEGATIVE) Urine Bilirubin (NEGATIVE) Urine Urobilinogen (0.2-1.0) EU/dL Ur Leukocyte Esterase (NEGATIVE) Urine RBC (0-5) Urine WBC (0-5) Ur Epithelial Cells Amorphous Sediment Urine Bacteria Urine Mucus Ketones (NEGATIVE) 09/20/20 09/20/20 09/20/20 Range/Units 00:20 00:57 01:59 WBC (4.5-11.0) K/uL RBC (3.30-5.50) M/uL Hgb (12.0-15.0) g/dL Hct (36.0-48.0) % MCV (80-98) fL MCH (27-31) pg MCHC (32-36) % Plt Count (150-400) K/uL Neut % (Auto) (36-66) % Lymph % (Auto) (24-44) % [place] % (Auto) (2-6) % Eos % (Auto) (2-4) % Baso % (Auto) (0-1) % Puncture Site ABG pH (7.350-7.450) ABG pCO2 (35.0-42.0) mmHg ABG pO2 (75.0-100.0) mmHg ABG HCO3 (22.0-26.0) mmol/L ABG Total CO2 (21.0-25.0) mmol/L ABG O2 Saturation (95.0-98.0) % ABG O2 Content (15.0-23.0) %vol ABG Base Excess mm/L ABG Hemoglobin (12.0-16.0) g/dL ABG Oxyhemoglobin % ABG Carboxyhemoglobin (0.0-1.6) % ABG Methemoglobin % Jerry Test O2 Delivery Device Sodium (140-148) mmol/L Potassium (3.6-5.2) mmol/L Chloride (100-108) mmol/L Carbon Dioxide (21-32) mmol/L Anion Gap (5.0-14.0) mmol/L BUN (7-18) mg/dL Creatinine (0.6-1.0) mg/dL Est Cr Clr Drug Dosing Estimated GFR (MDRD) (>60) Glucose (74-106) mg/dL POC Glucose 173 H 168 H (74-106) mg/dL Lactic Acid 1.3 (0.4-2.0) mmol/L Calcium (8.5-10.1) mg/dL Phosphorus (2.5-4.9) mg/dL Magnesium (1.8-2.4) mg/dL Total Bilirubin (0.2-1.0) mg/dL AST (15-37) U/L ALT (12-78) U/L Alkaline Phosphatase (46-116) U/L Troponin I (0.000-0.056) ng/mL Total Protein (6.4-8.2) g/dL Albumin (3.4-5.0) g/dL Globulin (2.3-3.5) g/dL Albumin/Globulin Ratio (1.2-2.2) Lipase (73-393) U/L Urine Color (YELLOW) Urine Appearance (CLEAR) Urine pH (5.0-8.0) Ur Specific [place] (1.008-1.030) Urine Protein (NEGATIVE) mg/dL Urine Glucose (UA) (NEGATIVE) mg/dL Urine Ketones (NEGATIVE) mg/dL Urine Occult Blood (NEGATIVE) Urine Nitrite (NEGATIVE) Urine Bilirubin (NEGATIVE) Urine Urobilinogen (0.2-1.0) EU/dL Ur Leukocyte Esterase (NEGATIVE) Urine RBC (0-5) Urine WBC (0-5) Ur Epithelial Cells Amorphous Sediment Urine Bacteria Urine Mucus Ketones (NEGATIVE) 09/20/20 09/20/20 09/20/20 Range/Units 02:56 04:02 04:40 WBC 18.4 H (4.5-11.0) K/uL RBC 4.21 (3.30-5.50) M/uL Hgb 12.1 D (12.0-15.0) g/dL Hct 35.3 L (36.0-48.0) % MCV 84 (80-98) fL MCH 29 (27-31) pg MCHC 34 (32-36) % Plt Count 256 (150-400) K/uL Neut % (Auto) (36-66) % Lymph % (Auto) (24-44) % [place] % (Auto) (2-6) % Eos % (Auto) (2-4) % Baso % (Auto) (0-1) % Puncture Site ABG pH (7.350-7.450) ABG pCO2 (35.0-42.0) mmHg ABG pO2 (75.0-100.0) mmHg ABG HCO3 (22.0-26.0) mmol/L ABG Total CO2 (21.0-25.0) mmol/L ABG O2 Saturation (95.0-98.0) % ABG O2 Content (15.0-23.0) %vol ABG Base Excess mm/L ABG Hemoglobin (12.0-16.0) g/dL ABG Oxyhemoglobin % ABG Carboxyhemoglobin (0.0-1.6) % ABG Methemoglobin % Jerry Test O2 Delivery Device Sodium (140-148) mmol/L Potassium (3.6-5.2) mmol/L Chloride (100-108) mmol/L Carbon Dioxide (21-32) mmol/L Anion Gap (5.0-14.0) mmol/L BUN (7-18) mg/dL Creatinine (0.6-1.0) mg/dL Est Cr Clr Drug Dosing Estimated GFR (MDRD) (>60) Glucose (74-106) mg/dL POC Glucose 192 H 205 H (74-106) mg/dL Lactic Acid (0.4-2.0) mmol/L Calcium (8.5-10.1) mg/dL Phosphorus (2.5-4.9) mg/dL Magnesium (1.8-2.4) mg/dL Total Bilirubin (0.2-1.0) mg/dL AST (15-37) U/L ALT (12-78) U/L Alkaline Phosphatase (46-116) U/L Troponin I (0.000-0.056) ng/mL Total Protein (6.4-8.2) g/dL Albumin (3.4-5.0) g/dL Globulin (2.3-3.5) g/dL Albumin/Globulin Ratio (1.2-2.2) Lipase (73-393) U/L Urine Color (YELLOW) Urine Appearance (CLEAR) Urine pH (5.0-8.0) Ur Specific [place] (1.008-1.030) Urine Protein (NEGATIVE) mg/dL Urine Glucose (UA) (NEGATIVE) mg/dL Urine Ketones (NEGATIVE) mg/dL Urine Occult Blood (NEGATIVE) Urine Nitrite (NEGATIVE) Urine Bilirubin (NEGATIVE) Urine Urobilinogen (0.2-1.0) EU/dL Ur Leukocyte Esterase (NEGATIVE) Urine RBC (0-5) Urine WBC (0-5) Ur Epithelial Cells Amorphous Sediment Urine Bacteria Urine Mucus Ketones (NEGATIVE) 09/20/20 09/20/20 09/20/20 Range/Units 04:40 04:40 06:01 WBC (4.5-11.0) K/uL RBC (3.30-5.50) M/uL Hgb (12.0-15.0) g/dL Hct (36.0-48.0) % MCV (80-98) fL MCH (27-31) pg MCHC (32-36) % Plt Count (150-400) K/uL Neut % (Auto) (36-66) % Lymph % (Auto) (24-44) % [place] % (Auto) (2-6) % Eos % (Auto) (2-4) % Baso % (Auto) (0-1) % Puncture Site ABG pH (7.350-7.450) ABG pCO2 (35.0-42.0) mmHg ABG pO2 (75.0-100.0) mmHg ABG HCO3 (22.0-26.0) mmol/L ABG Total CO2 (21.0-25.0) mmol/L ABG O2 Saturation (95.0-98.0) % ABG O2 Content (15.0-23.0) %vol ABG Base Excess mm/L ABG Hemoglobin (12.0-16.0) g/dL ABG Oxyhemoglobin % ABG Carboxyhemoglobin (0.0-1.6) % ABG Methemoglobin % Jerry Test O2 Delivery Device Sodium 138 L (140-148) mmol/L Potassium 4.4 (3.6-5.2) mmol/L Chloride 107 (100-108) mmol/L Carbon Dioxide 15 L (21-32) mmol/L Anion Gap 20.4 H (5.0-14.0) mmol/L BUN 16 (7-18) mg/dL Creatinine 0.9 (0.6-1.0) mg/dL Est Cr Clr Drug Dosing 87.34 Estimated GFR (MDRD) > 60 (>60) Glucose 216 H (74-106) mg/dL POC Glucose 207 H (74-106) mg/dL Lactic Acid 0.8 (0.4-2.0) mmol/L Calcium 8.1 L (8.5-10.1) mg/dL Phosphorus (2.5-4.9) mg/dL Magnesium (1.8-2.4) mg/dL Total Bilirubin (0.2-1.0) mg/dL AST (15-37) U/L ALT (12-78) U/L Alkaline Phosphatase (46-116) U/L Troponin I (0.000-0.056) ng/mL Total Protein (6.4-8.2) g/dL Albumin (3.4-5.0) g/dL Globulin (2.3-3.5) g/dL Albumin/Globulin Ratio (1.2-2.2) Lipase (73-393) U/L Urine Color (YELLOW) Urine Appearance (CLEAR) Urine pH (5.0-8.0) Ur Specific [place] (1.008-1.030) Urine Protein (NEGATIVE) mg/dL Urine Glucose (UA) (NEGATIVE) mg/dL Urine Ketones (NEGATIVE) mg/dL Urine Occult Blood (NEGATIVE) Urine Nitrite (NEGATIVE) Urine Bilirubin (NEGATIVE) Urine Urobilinogen (0.2-1.0) EU/dL Ur Leukocyte Esterase (NEGATIVE) Urine RBC (0-5) Urine WBC (0-5) Ur Epithelial Cells Amorphous Sediment Urine Bacteria Urine Mucus Ketones (NEGATIVE) 09/20/20 09/20/20 09/20/20 Range/Units 06:59 08:01 08:54 WBC (4.5-11.0) K/uL RBC (3.30-5.50) M/uL Hgb (12.0-15.0) g/dL Hct (36.0-48.0) % MCV (80-98) fL MCH (27-31) pg MCHC (32-36) % Plt Count (150-400) K/uL Neut % (Auto) (36-66) % Lymph % (Auto) (24-44) % [place] % (Auto) (2-6) % Eos % (Auto) (2-4) % Baso % (Auto) (0-1) % Puncture Site ABG pH (7.350-7.450) ABG pCO2 (35.0-42.0) mmHg ABG pO2 (75.0-100.0) mmHg ABG HCO3 (22.0-26.0) mmol/L ABG Total CO2 (21.0-25.0) mmol/L ABG O2 Saturation (95.0-98.0) % ABG O2 Content (15.0-23.0) %vol ABG Base Excess mm/L ABG Hemoglobin (12.0-16.0) g/dL ABG Oxyhemoglobin % ABG Carboxyhemoglobin (0.0-1.6) % ABG Methemoglobin % Jerry Test O2 Delivery Device Sodium 138 L (140-148) mmol/L Potassium 4.3 (3.6-5.2) mmol/L Chloride 107 (100-108) mmol/L Carbon Dioxide 14 L (21-32) mmol/L Anion Gap 21.3 H (5.0-14.0) mmol/L BUN 15 (7-18) mg/dL Creatinine 0.8 (0.6-1.0) mg/dL Est Cr Clr Drug Dosing 98.25 Estimated GFR (MDRD) > 60 (>60) Glucose 228 H (74-106) mg/dL POC Glucose 199 H 199 H (74-106) mg/dL Lactic Acid (0.4-2.0) mmol/L Calcium 9.0 (8.5-10.1) mg/dL Phosphorus (2.5-4.9) mg/dL Magnesium (1.8-2.4) mg/dL Total Bilirubin (0.2-1.0) mg/dL AST (15-37) U/L ALT (12-78) U/L Alkaline Phosphatase (46-116) U/L Troponin I (0.000-0.056) ng/mL Total Protein (6.4-8.2) g/dL Albumin (3.4-5.0) g/dL Globulin (2.3-3.5) g/dL Albumin/Globulin Ratio (1.2-2.2) Lipase (73-393) U/L Urine Color (YELLOW) Urine Appearance (CLEAR) Urine pH (5.0-8.0) Ur Specific [place] (1.008-1.030) Urine Protein (NEGATIVE) mg/dL Urine Glucose (UA) (NEGATIVE) mg/dL Urine Ketones (NEGATIVE) mg/dL Urine Occult Blood (NEGATIVE) Urine Nitrite (NEGATIVE) Urine Bilirubin (NEGATIVE) Urine Urobilinogen (0.2-1.0) EU/dL Ur Leukocyte Esterase (NEGATIVE) Urine RBC (0-5) Urine WBC (0-5) Ur Epithelial Cells Amorphous Sediment Urine Bacteria Urine Mucus Ketones (NEGATIVE) 09/20/20 09/20/20 09/20/20 Range/Units 10:01 11:02 11:54 WBC (4.5-11.0) K/uL RBC (3.30-5.50) M/uL Hgb (12.0-15.0) g/dL Hct (36.0-48.0) % MCV (80-98) fL MCH (27-31) pg MCHC (32-36) % Plt Count (150-400) K/uL Neut % (Auto) (36-66) % Lymph % (Auto) (24-44) % [place] % (Auto) (2-6) % Eos % (Auto) (2-4) % Baso % (Auto) (0-1) % Puncture Site ABG pH (7.350-7.450) ABG pCO2 (35.0-42.0) mmHg ABG pO2 (75.0-100.0) mmHg ABG HCO3 (22.0-26.0) mmol/L ABG Total CO2 (21.0-25.0) mmol/L ABG O2 Saturation (95.0-98.0) % ABG O2 Content (15.0-23.0) %vol ABG Base Excess mm/L ABG Hemoglobin (12.0-16.0) g/dL ABG Oxyhemoglobin % ABG Carboxyhemoglobin (0.0-1.6) % ABG Methemoglobin % Jerry Test O2 Delivery Device Sodium (140-148) mmol/L Potassium (3.6-5.2) mmol/L Chloride (100-108) mmol/L Carbon Dioxide (21-32) mmol/L Anion Gap (5.0-14.0) mmol/L BUN (7-18) mg/dL Creatinine (0.6-1.0) mg/dL Est Cr Clr Drug Dosing Estimated GFR (MDRD) (>60) Glucose (74-106) mg/dL POC Glucose 242 H 258 H 257 H (74-106) mg/dL Lactic Acid (0.4-2.0) mmol/L Calcium (8.5-10.1) mg/dL Phosphorus (2.5-4.9) mg/dL Magnesium (1.8-2.4) mg/dL Total Bilirubin (0.2-1.0) mg/dL AST (15-37) U/L ALT (12-78) U/L Alkaline Phosphatase (46-116) U/L Troponin I (0.000-0.056) ng/mL Total Protein (6.4-8.2) g/dL Albumin (3.4-5.0) g/dL Globulin (2.3-3.5) g/dL Albumin/Globulin Ratio (1.2-2.2) Lipase (73-393) U/L Urine Color (YELLOW) Urine Appearance (CLEAR) Urine pH (5.0-8.0) Ur Specific [place] (1.008-1.030) Urine Protein (NEGATIVE) mg/dL Urine Glucose (UA) (NEGATIVE) mg/dL Urine Ketones (NEGATIVE) mg/dL Urine Occult Blood (NEGATIVE) Urine Nitrite (NEGATIVE) Urine Bilirubin (NEGATIVE) Urine Urobilinogen (0.2-1.0) EU/dL Ur Leukocyte Esterase (NEGATIVE) Urine RBC (0-5) Urine WBC (0-5) Ur Epithelial Cells Amorphous Sediment Urine Bacteria Urine Mucus Ketones (NEGATIVE) 09/20/20 Range/Units 12:35 WBC (4.5-11.0) K/uL RBC (3.30-5.50) M/uL Hgb (12.0-15.0) g/dL Hct (36.0-48.0) % MCV (80-98) fL MCH (27-31) pg MCHC (32-36) % Plt Count (150-400) K/uL Neut % (Auto) (36-66) % Lymph % (Auto) (24-44) % [place] % (Auto) (2-6) % Eos % (Auto) (2-4) % Baso % (Auto) (0-1) % Puncture Site ABG pH (7.350-7.450) ABG pCO2 (35.0-42.0) mmHg ABG pO2 (75.0-100.0) mmHg ABG HCO3 (22.0-26.0) mmol/L ABG Total CO2 (21.0-25.0) mmol/L ABG O2 Saturation (95.0-98.0) % ABG O2 Content (15.0-23.0) %vol ABG Base Excess mm/L ABG Hemoglobin (12.0-16.0) g/dL ABG Oxyhemoglobin % ABG Carboxyhemoglobin (0.0-1.6) % ABG Methemoglobin % Jerry Test O2 Delivery Device Sodium 139 L (140-148) mmol/L Potassium 4.4 (3.6-5.2) mmol/L Chloride 107 (100-108) mmol/L Carbon Dioxide 13 L (21-32) mmol/L Anion Gap 23.4 H (5.0-14.0) mmol/L BUN 14 (7-18) mg/dL Creatinine 0.8 (0.6-1.0) mg/dL Est Cr Clr Drug Dosing 98.25 Estimated GFR (MDRD) > 60 (>60) Glucose 230 H (74-106) mg/dL POC Glucose (74-106) mg/dL Lactic Acid (0.4-2.0) mmol/L Calcium 9.5 (8.5-10.1) mg/dL Phosphorus (2.5-4.9) mg/dL Magnesium (1.8-2.4) mg/dL Total Bilirubin (0.2-1.0) mg/dL AST (15-37) U/L ALT (12-78) U/L Alkaline Phosphatase (46-116) U/L Troponin I (0.000-0.056) ng/mL Total Protein (6.4-8.2) g/dL Albumin (3.4-5.0) g/dL Globulin (2.3-3.5) g/dL Albumin/Globulin Ratio (1.2-2.2) Lipase (73-393) U/L Urine Color (YELLOW) Urine Appearance (CLEAR) Urine pH (5.0-8.0) Ur Specific [place] (1.008-1.030) Urine Protein (NEGATIVE) mg/dL Urine Glucose (UA) (NEGATIVE) mg/dL Urine Ketones (NEGATIVE) mg/dL Urine Occult Blood (NEGATIVE) Urine Nitrite (NEGATIVE) Urine Bilirubin (NEGATIVE) Urine Urobilinogen (0.2-1.0) EU/dL Ur Leukocyte Esterase (NEGATIVE) Urine RBC (0-5) Urine WBC (0-5) Ur Epithelial Cells Amorphous Sediment Urine Bacteria Urine Mucus Ketones (NEGATIVE) Med Orders - Current: Current Medications Acetaminophen (Acetaminophen 325 Mg Tab) 650 mg PO Q4H PRN PRN Reason: Pain (Mild 1-3)/fever Last Admin: 09/19/20 23:07 Dose: 650 mg Documented by: Insulin Regular in 0.9 % NACL (Myxredlin In Ns 100 Unit/100 Ml) 100 mls @ 8.618 mls/hr IV ASDIRECTED [facility]; Protocol Last Infusion: 09/20/20 13:26 Dose: 0.03 units/kg/hr, 2.5 mls/hr Documented by: Dextrose/Sodium Chloride (Dextrose 5%-Normal Saline) 1,000 mls @ 125 mls/hr IV ASDIRECTED [facility] Last Admin: 09/20/20 10:13 Dose: 125 mls/hr Documented by: Ibuprofen (Ibuprofen 600 Mg Tab) 600 mg PO Q6H PRN PRN Reason: Pain/Fever Lorazepam (Lorazepam 2 Mg/Ml Sdv) 0.5 mg IVPUSH Q4H PRN PRN Reason: Nausea/Vomiting Ondansetron HCl (Ondansetron 4 Mg/2 Ml Sdv) 4 mg IV Q6H PRN PRN Reason: Nausea/Vomiting Ondansetron HCl (Ondansetron 4 Mg Tab.Dis) 4 mg PO Q6H PRN PRN Reason: Nausea able to take PO Sodium Chloride (Sodium Chloride 0.9% 10 Ml Syringe) 10 ml FLUSH ASDIRECTED PRN PRN Reason: Keep Vein Open Last Admin: 09/19/20 19:54 Dose: 10 ml Documented by: Discontinued Medications Sodium Chloride (Normal Saline) 1,000 mls @ 999 mls/hr IV ASDIRECTED [facility] Last Admin: 09/19/20 19:54 Dose: 999 mls/hr Documented by: Insulin Regular in 0.9 % NACL (Myxredlin In Ns 100 Unit/100 Ml) 100 unit in 100 mls @ [facility]068 [facility] Last Admin: 09/19/20 20:02 Dose: 0.14 units/kg/hr, 12.068 mls/hr Documented by: Sodium Chloride (Normal Saline) 1,000 mls @ 999 [facility]: 09/19/20 22:31 Last Admin: 09/19/20 21:27 Dose: 999 mls/hr Documented by: Sodium Chloride (Normal Saline) 1,000 mls @ 125 [facility]ls[facility] Last Admin: 09/19/20 22:10 Dose: 125 mls/hr Documented by: Dextrose/Sodium Chloride (Dextrose 5%-Normal Saline) 1,000 mls @ [facility] Last Infusion: 09/20/20 09:18 Dose: 125 mls/hr Documented by: Ketorolac Tromethamine (Ketorolac 30 Mg/Ml Sdv) 30 mg IVPUSH ONETIME ONE Stop: 09/19/20 20:18 Last Admin: 09/19/20 20:25 Dose: 30 mg Documented by: Ondansetron HCl (Ondansetron 4 Mg/2 Ml Sdv) 4 mg IVPUSH ONETIME ONE Stop: 09/19/20 19:46 Last Admin: 09/19/20 19:54 Dose: 4 mg Documented by: Pantoprazole Sodium (Pantoprazole 40 Mg Vial) 40 mg IV ONETIME ONE Stop: 09/19/20 22:01 Last Admin: 09/19/20 22:10 Dose: 40 mg Documented by: - Patient Data Lab Results Last 24 hrs: Laboratory Results - last 24 hr 09/19/20 09/19/20 09/19/20 Range/Units 19:41 20:09 20:09 WBC 27.2 H (4.5-11.0) K/uL RBC 5.41 (3.30-5.50) M/uL Hgb 15.7 H D (12.0-15.0) g/dL Hct 46.2 (36.0-48.0) % MCV 85 (80-98) fL MCH 29 (27-31) pg MCHC 34 (32-36) % Plt Count 381 (150-400) K/uL Neut % (Auto) 89 H (36-66) % Lymph % (Auto) 5 L (24-44) % [place] % (Auto) 6 (2-6) % Eos % (Auto) 0 L (2-4) % Baso % (Auto) 0 (0-1) % Puncture Site Rt radial ABG pH 7.083 L* (7.350-7.450) ABG pCO2 24.3 L (35.0-42.0) mmHg ABG pO2 65.8 L (75.0-100.0) mmHg ABG HCO3 6.9 L (22.0-26.0) mmol/L ABG Total CO2 6.6 L (21.0-25.0) mmol/L ABG O2 Saturation 85.4 L (95.0-98.0) % ABG O2 Content 17.6 (15.0-23.0) %vol ABG Base Excess -22.6 mm/L ABG Hemoglobin 14.9 (12.0-16.0) g/dL ABG Oxyhemoglobin 84.2 % ABG Carboxyhemoglobin 0.6 (0.0-1.6) % ABG Methemoglobin 0.8 % Jerry Test Passed O2 Delivery Device Room air Sodium 138 L (140-148) mmol/L Potassium 5.7 H (3.6-5.2) mmol/L Chloride 98 L (100-108) mmol/L Carbon Dioxide 10 L D (21-32) mmol/L Anion Gap 35.7 H (5.0-14.0) mmol/L BUN 22 H D (7-18) mg/dL Creatinine 1.4 H D (0.6-1.0) mg/dL Est Cr Clr Drug Dosing TNP Estimated GFR (MDRD) 47 L (>60) Glucose 449 H* (74-106) mg/dL POC Glucose (74-106) mg/dL Lactic Acid (0.4-2.0) mmol/L Calcium 9.9 (8.5-10.1) mg/dL Phosphorus 6.4 H (2.5-4.9) mg/dL Magnesium 2.0 (1.8-2.4) mg/dL Total Bilirubin 0.8 (0.2-1.0) mg/dL AST 24 (15-37) U/L ALT 59 (12-78) U/L Alkaline Phosphatase 223 H (46-116) U/L Troponin I (0.000-0.056) ng/mL Total Protein 8.7 H (6.4-8.2) g/dL Albumin 4.6 (3.4-5.0) g/dL Globulin 4.1 H (2.3-3.5) g/dL Albumin/Globulin Ratio 1.1 L (1.2-2.2) Lipase (73-393) U/L Urine Color (YELLOW) Urine Appearance (CLEAR) Urine pH (5.0-8.0) Ur Specific [place] (1.008-1.030) Urine Protein (NEGATIVE) mg/dL Urine Glucose (UA) (NEGATIVE) mg/dL Urine Ketones (NEGATIVE) mg/dL Urine Occult Blood (NEGATIVE) Urine Nitrite (NEGATIVE) Urine Bilirubin (NEGATIVE) Urine Urobilinogen (0.2-1.0) EU/dL Ur Leukocyte Esterase (NEGATIVE) Urine RBC (0-5) Urine WBC (0-5) Ur Epithelial Cells Amorphous Sediment Urine Bacteria Urine Mucus Ketones (NEGATIVE) 09/19/20 09/19/20 09/19/20 Range/Units 20:09 20:09 20:09 WBC (4.5-11.0) K/uL RBC (3.30-5.50) M/uL Hgb (12.0-15.0) g/dL Hct (36.0-48.0) % MCV (80-98) fL MCH (27-31) pg MCHC (32-36) % Plt Count (150-400) K/uL Neut % (Auto) (36-66) % Lymph % (Auto) (24-44) % [place] % (Auto) (2-6) % Eos % (Auto) (2-4) % Baso % (Auto) (0-1) % Puncture Site ABG pH (7.350-7.450) ABG pCO2 (35.0-42.0) mmHg ABG pO2 (75.0-100.0) mmHg ABG HCO3 (22.0-26.0) mmol/L ABG Total CO2 (21.0-25.0) mmol/L ABG O2 Saturation (95.0-98.0) % ABG O2 Content (15.0-23.0) %vol ABG Base Excess mm/L ABG Hemoglobin (12.0-16.0) g/dL ABG Oxyhemoglobin % ABG Carboxyhemoglobin (0.0-1.6) % ABG Methemoglobin % Jerry Test O2 Delivery Device Sodium (140-148) mmol/L Potassium (3.6-5.2) mmol/L Chloride (100-108) mmol/L Carbon Dioxide (21-32) mmol/L Anion Gap (5.0-14.0) mmol/L BUN (7-18) mg/dL Creatinine (0.6-1.0) mg/dL Est Cr Clr Drug Dosing Estimated GFR (MDRD) (>60) Glucose (74-106) mg/dL POC Glucose (74-106) mg/dL Lactic Acid 5.9 H (0.4-2.0) mmol/L Calcium (8.5-10.1) mg/dL Phosphorus (2.5-4.9) mg/dL Magnesium (1.8-2.4) mg/dL Total Bilirubin (0.2-1.0) mg/dL AST (15-37) U/L ALT (12-78) U/L Alkaline Phosphatase (46-116) U/L Troponin I (0.000-0.056) ng/mL Total Protein (6.4-8.2) g/dL Albumin (3.4-5.0) g/dL Globulin (2.3-3.5) g/dL Albumin/Globulin Ratio (1.2-2.2) Lipase 108 (73-393) U/L Urine Color (YELLOW) Urine Appearance (CLEAR) Urine pH (5.0-8.0) Ur Specific [place] (1.008-1.030) Urine Protein (NEGATIVE) mg/dL Urine Glucose (UA) (NEGATIVE) mg/dL Urine Ketones (NEGATIVE) mg/dL Urine Occult Blood (NEGATIVE) Urine Nitrite (NEGATIVE) Urine Bilirubin (NEGATIVE) Urine Urobilinogen (0.2-1.0) EU/dL Ur Leukocyte Esterase (NEGATIVE) Urine RBC (0-5) Urine WBC (0-5) Ur Epithelial Cells Amorphous Sediment Urine Bacteria Urine Mucus Ketones Small H (NEGATIVE) 09/19/20 09/19/20 09/19/20 Range/Units 20:15 20:32 22:02 WBC (4.5-11.0) K/uL RBC (3.30-5.50) M/uL Hgb (12.0-15.0) g/dL Hct (36.0-48.0) % MCV (80-98) fL MCH (27-31) pg MCHC (32-36) % Plt Count (150-400) K/uL Neut % (Auto) (36-66) % Lymph % (Auto) (24-44) % [place] % (Auto) (2-6) % Eos % (Auto) (2-4) % Baso % (Auto) (0-1) % Puncture Site ABG pH (7.350-7.450) ABG pCO2 (35.0-42.0) mmHg ABG pO2 (75.0-100.0) mmHg ABG HCO3 (22.0-26.0) mmol/L ABG Total CO2 (21.0-25.0) mmol/L ABG O2 Saturation (95.0-98.0) % ABG O2 Content (15.0-23.0) %vol ABG Base Excess mm/L ABG Hemoglobin (12.0-16.0) g/dL ABG Oxyhemoglobin % ABG Carboxyhemoglobin (0.0-1.6) % ABG Methemoglobin % Jerry Test O2 Delivery Device Sodium (140-148) mmol/L Potassium (3.6-5.2) mmol/L Chloride (100-108) mmol/L Carbon Dioxide (21-32) mmol/L Anion Gap (5.0-14.0) mmol/L BUN (7-18) mg/dL Creatinine (0.6-1.0) mg/dL Est Cr Clr Drug Dosing Estimated GFR (MDRD) (>60) Glucose (74-106) mg/dL POC Glucose 278 H (74-106) mg/dL Lactic Acid (0.4-2.0) mmol/L Calcium (8.5-10.1) mg/dL Phosphorus (2.5-4.9) mg/dL Magnesium (1.8-2.4) mg/dL Total Bilirubin (0.2-1.0) mg/dL AST (15-37) U/L ALT (12-78) U/L Alkaline Phosphatase (46-116) U/L Troponin I < 0.017 (0.000-0.056) ng/mL Total Protein (6.4-8.2) g/dL Albumin (3.4-5.0) g/dL Globulin (2.3-3.5) g/dL Albumin/Globulin Ratio (1.2-2.2) Lipase (73-393) U/L Urine Color Yellow (YELLOW) Urine Appearance Clear (CLEAR) Urine pH 5.0 (5.0-8.0) Ur Specific [place] >= 1.030 (1.008-1.030) Urine Protein 30 H (NEGATIVE) mg/dL Urine Glucose (UA) 500 H (NEGATIVE) mg/dL Urine Ketones 80 H (NEGATIVE) mg/dL Urine Occult Blood Trace-intact H (NEGATIVE) Urine Nitrite Negative (NEGATIVE) Urine Bilirubin Negative (NEGATIVE) Urine Urobilinogen 0.2 (0.2-1.0) EU/dL Ur Leukocyte Esterase Negative (NEGATIVE) Urine RBC 0-5 (0-5) Urine WBC Not seen (0-5) Ur Epithelial Cells Occasional Amorphous Sediment Rare Urine Bacteria Rare Urine Mucus Occasional Ketones (NEGATIVE) 09/19/20 09/20/20 09/20/20 Range/Units 23:04 00:14 00:20 WBC (4.5-11.0) K/uL RBC (3.30-5.50) M/uL Hgb (12.0-15.0) g/dL Hct (36.0-48.0) % MCV (80-98) fL MCH (27-31) pg MCHC (32-36) % Plt Count (150-400) K/uL Neut % (Auto) (36-66) % Lymph % (Auto) (24-44) % [place] % (Auto) (2-6) % Eos % (Auto) (2-4) % Baso % (Auto) (0-1) % Puncture Site ABG pH (7.350-7.450) ABG pCO2 (35.0-42.0) mmHg ABG pO2 (75.0-100.0) mmHg ABG HCO3 (22.0-26.0) mmol/L ABG Total CO2 (21.0-25.0) mmol/L ABG O2 Saturation (95.0-98.0) % ABG O2 Content (15.0-23.0) %vol ABG Base Excess mm/L ABG Hemoglobin (12.0-16.0) g/dL ABG Oxyhemoglobin % ABG Carboxyhemoglobin (0.0-1.6) % ABG Methemoglobin % Jerry Test O2 Delivery Device Sodium 142 (140-148) mmol/L Potassium 5.0 (3.6-5.2) mmol/L Chloride 109 H (100-108) mmol/L Carbon Dioxide 10 L (21-32) mmol/L Anion Gap 28.0 H (5.0-14.0) mmol/L BUN 17 (7-18) mg/dL Creatinine 1.0 (0.6-1.0) mg/dL Est Cr Clr Drug Dosing 78.60 Estimated GFR (MDRD) > 60 (>60) Glucose 165 H (74-106) mg/dL POC Glucose 227 H 161 H (74-106) mg/dL Lactic Acid (0.4-2.0) mmol/L Calcium 8.7 (8.5-10.1) mg/dL Phosphorus (2.5-4.9) mg/dL Magnesium (1.8-2.4) mg/dL Total Bilirubin (0.2-1.0) mg/dL AST (15-37) U/L ALT (12-78) U/L Alkaline Phosphatase (46-116) U/L Troponin I (0.000-0.056) ng/mL Total Protein (6.4-8.2) g/dL Albumin (3.4-5.0) g/dL Globulin (2.3-3.5) g/dL Albumin/Globulin Ratio (1.2-2.2) Lipase (73-393) U/L Urine Color (YELLOW) Urine Appearance (CLEAR) Urine pH (5.0-8.0) Ur Specific [place] (1.008-1.030) Urine Protein (NEGATIVE) mg/dL Urine Glucose (UA) (NEGATIVE) mg/dL Urine Ketones (NEGATIVE) mg/dL Urine Occult Blood (NEGATIVE) Urine Nitrite (NEGATIVE) Urine Bilirubin (NEGATIVE) Urine Urobilinogen (0.2-1.0) EU/dL Ur Leukocyte Esterase (NEGATIVE) Urine RBC (0-5) Urine WBC (0-5) Ur Epithelial Cells Amorphous Sediment Urine Bacteria Urine Mucus Ketones (NEGATIVE) 09/20/20 09/20/20 09/20/20 Range/Units 00:20 00:57 01:59 WBC (4.5-11.0) K/uL RBC (3.30-5.50) M/uL Hgb (12.0-15.0) g/dL Hct (36.0-48.0) % MCV (80-98) fL MCH (27-31) pg MCHC (32-36) % Plt Count (150-400) K/uL Neut % (Auto) (36-66) % Lymph % (Auto) (24-44) % [place] % (Auto) (2-6) % Eos % (Auto) (2-4) % Baso % (Auto) (0-1) % Puncture Site ABG pH (7.350-7.450) ABG pCO2 (35.0-42.0) mmHg ABG pO2 (75.0-100.0) mmHg ABG HCO3 (22.0-26.0) mmol/L ABG Total CO2 (21.0-25.0) mmol/L ABG O2 Saturation (95.0-98.0) % ABG O2 Content (15.0-23.0) %vol ABG Base Excess mm/L ABG Hemoglobin (12.0-16.0) g/dL ABG Oxyhemoglobin % ABG Carboxyhemoglobin (0.0-1.6) % ABG Methemoglobin % Jerry Test O2 Delivery Device Sodium (140-148) mmol/L Potassium (3.6-5.2) mmol/L Chloride (100-108) mmol/L Carbon Dioxide (21-32) mmol/L Anion Gap (5.0-14.0) mmol/L BUN (7-18) mg/dL Creatinine (0.6-1.0) mg/dL Est Cr Clr Drug Dosing Estimated GFR (MDRD) (>60) Glucose (74-106) mg/dL POC Glucose 173 H 168 H (74-106) mg/dL Lactic Acid 1.3 (0.4-2.0) mmol/L Calcium (8.5-10.1) mg/dL Phosphorus (2.5-4.9) mg/dL Magnesium (1.8-2.4) mg/dL Total Bilirubin (0.2-1.0) mg/dL AST (15-37) U/L ALT (12-78) U/L Alkaline Phosphatase (46-116) U/L Troponin I (0.000-0.056) ng/mL Total Protein (6.4-8.2) g/dL Albumin (3.4-5.0) g/dL Globulin (2.3-3.5) g/dL Albumin/Globulin Ratio (1.2-2.2) Lipase (73-393) U/L Urine Color (YELLOW) Urine Appearance (CLEAR) Urine pH (5.0-8.0) Ur Specific [place] (1.008-1.030) Urine Protein (NEGATIVE) mg/dL Urine Glucose (UA) (NEGATIVE) mg/dL Urine Ketones (NEGATIVE) mg/dL Urine Occult Blood (NEGATIVE) Urine Nitrite (NEGATIVE) Urine Bilirubin (NEGATIVE) Urine Urobilinogen (0.2-1.0) EU/dL Ur Leukocyte Esterase (NEGATIVE) Urine RBC (0-5) Urine WBC (0-5) Ur Epithelial Cells Amorphous Sediment Urine Bacteria Urine Mucus Ketones (NEGATIVE) 09/20/20 09/20/20 09/20/20 Range/Units 02:56 04:02 04:40 WBC 18.4 H (4.5-11.0) K/uL RBC 4.21 (3.30-5.50) M/uL Hgb 12.1 D (12.0-15.0) g/dL Hct 35.3 L (36.0-48.0) % MCV 84 (80-98) fL MCH 29 (27-31) pg MCHC 34 (32-36) % Plt Count 256 (150-400) K/uL Neut % (Auto) (36-66) % Lymph % (Auto) (24-44) % [place] % (Auto) (2-6) % Eos % (Auto) (2-4) % Baso % (Auto) (0-1) % Puncture Site ABG pH (7.350-7.450) ABG pCO2 (35.0-42.0) mmHg ABG pO2 (75.0-100.0) mmHg ABG HCO3 (22.0-26.0) mmol/L ABG Total CO2 (21.0-25.0) mmol/L ABG O2 Saturation (95.0-98.0) % ABG O2 Content (15.0-23.0) %vol ABG Base Excess mm/L ABG Hemoglobin (12.0-16.0) g/dL ABG Oxyhemoglobin % ABG Carboxyhemoglobin (0.0-1.6) % ABG Methemoglobin % Jerry Test O2 Delivery Device Sodium (140-148) mmol/L Potassium (3.6-5.2) mmol/L Chloride (100-108) mmol/L Carbon Dioxide (21-32) mmol/L Anion Gap (5.0-14.0) mmol/L BUN (7-18) mg/dL Creatinine (0.6-1.0) mg/dL Est Cr Clr Drug Dosing Estimated GFR (MDRD) (>60) Glucose (74-106) mg/dL POC Glucose 192 H 205 H (74-106) mg/dL Lactic Acid (0.4-2.0) mmol/L Calcium (8.5-10.1) mg/dL Phosphorus (2.5-4.9) mg/dL Magnesium (1.8-2.4) mg/dL Total Bilirubin (0.2-1.0) mg/dL AST (15-37) U/L ALT (12-78) U/L Alkaline Phosphatase (46-116) U/L Troponin I (0.000-0.056) ng/mL Total Protein (6.4-8.2) g/dL Albumin (3.4-5.0) g/dL Globulin (2.3-3.5) g/dL Albumin/Globulin Ratio (1.2-2.2) Lipase (73-393) U/L Urine Color (YELLOW) Urine Appearance (CLEAR) Urine pH (5.0-8.0) Ur Specific [place] (1.008-1.030) Urine Protein (NEGATIVE) mg/dL Urine Glucose (UA) (NEGATIVE) mg/dL Urine Ketones (NEGATIVE) mg/dL Urine Occult Blood (NEGATIVE) Urine Nitrite (NEGATIVE) Urine Bilirubin (NEGATIVE) Urine Urobilinogen (0.2-1.0) EU/dL Ur Leukocyte Esterase (NEGATIVE) Urine RBC (0-5) Urine WBC (0-5) Ur Epithelial Cells Amorphous Sediment Urine Bacteria Urine Mucus Ketones (NEGATIVE) 09/20/20 09/20/20 09/20/20 Range/Units 04:40 04:40 06:01 WBC (4.5-11.0) K/uL RBC (3.30-5.50) M/uL Hgb (12.0-15.0) g/dL Hct (36.0-48.0) % MCV (80-98) fL MCH (27-31) pg MCHC (32-36) % Plt Count (150-400) K/uL Neut % (Auto) (36-66) % Lymph % (Auto) (24-44) % [place] % (Auto) (2-6) % Eos % (Auto) (2-4) % Baso % (Auto) (0-1) % Puncture Site ABG pH (7.350-7.450) ABG pCO2 (35.0-42.0) mmHg ABG pO2 (75.0-100.0) mmHg ABG HCO3 (22.0-26.0) mmol/L ABG Total CO2 (21.0-25.0) mmol/L ABG O2 Saturation (95.0-98.0) % ABG O2 Content (15.0-23.0) %vol ABG Base Excess mm/L ABG Hemoglobin (12.0-16.0) g/dL ABG Oxyhemoglobin % ABG Carboxyhemoglobin (0.0-1.6) % ABG Methemoglobin % Jerry Test O2 Delivery Device Sodium 138 L (140-148) mmol/L Potassium 4.4 (3.6-5.2) mmol/L Chloride 107 (100-108) mmol/L Carbon Dioxide 15 L (21-32) mmol/L Anion Gap 20.4 H (5.0-14.0) mmol/L BUN 16 (7-18) mg/dL Creatinine 0.9 (0.6-1.0) mg/dL Est Cr Clr Drug Dosing 87.34 Estimated GFR (MDRD) > 60 (>60) Glucose 216 H (74-106) mg/dL POC Glucose 207 H (74-106) mg/dL Lactic Acid 0.8 (0.4-2.0) mmol/L Calcium 8.1 L (8.5-10.1) mg/dL Phosphorus (2.5-4.9) mg/dL Magnesium (1.8-2.4) mg/dL Total Bilirubin (0.2-1.0) mg/dL AST (15-37) U/L ALT (12-78) U/L Alkaline Phosphatase (46-116) U/L Troponin I (0.000-0.056) ng/mL Total Protein (6.4-8.2) g/dL Albumin (3.4-5.0) g/dL Globulin (2.3-3.5) g/dL Albumin/Globulin Ratio (1.2-2.2) Lipase (73-393) U/L Urine Color (YELLOW) Urine Appearance (CLEAR) Urine pH (5.0-8.0) Ur Specific [place] (1.008-1.030) Urine Protein (NEGATIVE) mg/dL Urine Glucose (UA) (NEGATIVE) mg/dL Urine Ketones (NEGATIVE) mg/dL Urine Occult Blood (NEGATIVE) Urine Nitrite (NEGATIVE) Urine Bilirubin (NEGATIVE) Urine Urobilinogen (0.2-1.0) EU/dL Ur Leukocyte Esterase (NEGATIVE) Urine RBC (0-5) Urine WBC (0-5) Ur Epithelial Cells Amorphous Sediment Urine Bacteria Urine Mucus Ketones (NEGATIVE) 09/20/20 09/20/20 09/20/20 Range/Units 06:59 08:01 08:54 WBC (4.5-11.0) K/uL RBC (3.30-5.50) M/uL Hgb (12.0-15.0) g/dL Hct (36.0-48.0) % MCV (80-98) fL MCH (27-31) pg MCHC (32-36) % Plt Count (150-400) K/uL Neut % (Auto) (36-66) % Lymph % (Auto) (24-44) % [place] % (Auto) (2-6) % Eos % (Auto) (2-4) % Baso % (Auto) (0-1) % Puncture Site ABG pH (7.350-7.450) ABG pCO2 (35.0-42.0) mmHg ABG pO2 (75.0-100.0) mmHg ABG HCO3 (22.0-26.0) mmol/L ABG Total CO2 (21.0-25.0) mmol/L ABG O2 Saturation (95.0-98.0) % ABG O2 Content (15.0-23.0) %vol ABG Base Excess mm/L ABG Hemoglobin (12.0-16.0) g/dL ABG Oxyhemoglobin % ABG Carboxyhemoglobin (0.0-1.6) % ABG Methemoglobin % Jerry Test O2 Delivery Device Sodium 138 L (140-148) mmol/L Potassium 4.3 (3.6-5.2) mmol/L Chloride 107 (100-108) mmol/L Carbon Dioxide 14 L (21-32) mmol/L Anion Gap 21.3 H (5.0-14.0) mmol/L BUN 15 (7-18) mg/dL Creatinine 0.8 (0.6-1.0) mg/dL Est Cr Clr Drug Dosing 98.25 Estimated GFR (MDRD) > 60 (>60) Glucose 228 H (74-106) mg/dL POC Glucose 199 H 199 H (74-106) mg/dL Lactic Acid (0.4-2.0) mmol/L Calcium 9.0 (8.5-10.1) mg/dL Phosphorus (2.5-4.9) mg/dL Magnesium (1.8-2.4) mg/dL Total Bilirubin (0.2-1.0) mg/dL AST (15-37) U/L ALT (12-78) U/L Alkaline Phosphatase (46-116) U/L Troponin I (0.000-0.056) ng/mL Total Protein (6.4-8.2) g/dL Albumin (3.4-5.0) g/dL Globulin (2.3-3.5) g/dL Albumin/Globulin Ratio (1.2-2.2) Lipase (73-393) U/L Urine Color (YELLOW) Urine Appearance (CLEAR) Urine pH (5.0-8.0) Ur Specific [place] (1.008-1.030) Urine Protein (NEGATIVE) mg/dL Urine Glucose (UA) (NEGATIVE) mg/dL Urine Ketones (NEGATIVE) mg/dL Urine Occult Blood (NEGATIVE) Urine Nitrite (NEGATIVE) Urine Bilirubin (NEGATIVE) Urine Urobilinogen (0.2-1.0) EU/dL Ur Leukocyte Esterase (NEGATIVE) Urine RBC (0-5) Urine WBC (0-5) Ur Epithelial Cells Amorphous Sediment Urine Bacteria Urine Mucus Ketones (NEGATIVE) 09/20/20 09/20/20 09/20/20 Range/Units 10:01 11:02 11:54 WBC (4.5-11.0) K/uL RBC (3.30-5.50) M/uL Hgb (12.0-15.0) g/dL Hct (36.0-48.0) % MCV (80-98) fL MCH (27-31) pg MCHC (32-36) % Plt Count (150-400) K/uL Neut % (Auto) (36-66) % Lymph % (Auto) (24-44) % [place] % (Auto) (2-6) % Eos % (Auto) (2-4) % Baso % (Auto) (0-1) % Puncture Site ABG pH (7.350-7.450) ABG pCO2 (35.0-42.0) mmHg ABG pO2 (75.0-100.0) mmHg ABG HCO3 (22.0-26.0) mmol/L ABG Total CO2 (21.0-25.0) mmol/L ABG O2 Saturation (95.0-98.0) % ABG O2 Content (15.0-23.0) %vol ABG Base Excess mm/L ABG Hemoglobin (12.0-16.0) g/dL ABG Oxyhemoglobin % ABG Carboxyhemoglobin (0.0-1.6) % ABG Methemoglobin % Jerry Test O2 Delivery Device Sodium (140-148) mmol/L Potassium (3.6-5.2) mmol/L Chloride (100-108) mmol/L Carbon Dioxide (21-32) mmol/L Anion Gap (5.0-14.0) mmol/L BUN (7-18) mg/dL Creatinine (0.6-1.0) mg/dL Est Cr Clr Drug Dosing Estimated GFR (MDRD) (>60) Glucose (74-106) mg/dL POC Glucose 242 H 258 H 257 H (74-106) mg/dL Lactic Acid (0.4-2.0) mmol/L Calcium (8.5-10.1) mg/dL Phosphorus (2.5-4.9) mg/dL Magnesium (1.8-2.4) mg/dL Total Bilirubin (0.2-1.0) mg/dL AST (15-37) U/L ALT (12-78) U/L Alkaline Phosphatase (46-116) U/L Troponin I (0.000-0.056) ng/mL Total Protein (6.4-8.2) g/dL Albumin (3.4-5.0) g/dL Globulin (2.3-3.5) g/dL Albumin/Globulin Ratio (1.2-2.2) Lipase (73-393) U/L Urine Color (YELLOW) Urine Appearance (CLEAR) Urine pH (5.0-8.0) Ur Specific [place] (1.008-1.030) Urine Protein (NEGATIVE) mg/dL Urine Glucose (UA) (NEGATIVE) mg/dL Urine Ketones (NEGATIVE) mg/dL Urine Occult Blood (NEGATIVE) Urine Nitrite (NEGATIVE) Urine Bilirubin (NEGATIVE) Urine Urobilinogen (0.2-1.0) EU/dL Ur Leukocyte Esterase (NEGATIVE) Urine RBC (0-5) Urine WBC (0-5) Ur Epithelial Cells Amorphous Sediment Urine Bacteria Urine Mucus Ketones (NEGATIVE) 09/20/20 Range/Units 12:35 WBC (4.5-11.0) K/uL RBC (3.30-5.50) M/uL Hgb (12.0-15.0) g/dL Hct (36.0-48.0) % MCV (80-98) fL MCH (27-31) pg MCHC (32-36) % Plt Count (150-400) K/uL Neut % (Auto) (36-66) % Lymph % (Auto) (24-44) % [place] % (Auto) (2-6) % Eos % (Auto) (2-4) % Baso % (Auto) (0-1) % Puncture Site ABG pH (7.350-7.450) ABG pCO2 (35.0-42.0) mmHg ABG pO2 (75.0-100.0) mmHg ABG HCO3 (22.0-26.0) mmol/L ABG Total CO2 (21.0-25.0) mmol/L ABG O2 Saturation (95.0-98.0) % ABG O2 Content (15.0-23.0) %vol ABG Base Excess mm/L ABG Hemoglobin (12.0-16.0) g/dL ABG Oxyhemoglobin % ABG Carboxyhemoglobin (0.0-1.6) % ABG Methemoglobin % Jerry Test O2 Delivery Device Sodium 139 L (140-148) mmol/L Potassium 4.4 (3.6-5.2) mmol/L Chloride 107 (100-108) mmol/L Carbon Dioxide 13 L (21-32) mmol/L Anion Gap 23.4 H (5.0-14.0) mmol/L BUN 14 (7-18) mg/dL Creatinine 0.8 (0.6-1.0) mg/dL Est Cr Clr Drug Dosing 98.25 Estimated GFR (MDRD) > 60 (>60) Glucose 230 H (74-106) mg/dL POC Glucose (74-106) mg/dL Lactic Acid (0.4-2.0) mmol/L Calcium 9.5 (8.5-10.1) mg/dL Phosphorus (2.5-4.9) mg/dL Magnesium (1.8-2.4) mg/dL Total Bilirubin (0.2-1.0) mg/dL AST (15-37) U/L ALT (12-78) U/L Alkaline Phosphatase (46-116) U/L Troponin I (0.000-0.056) ng/mL Total Protein (6.4-8.2) g/dL Albumin (3.4-5.0) g/dL Globulin (2.3-3.5) g/dL Albumin/Globulin Ratio (1.2-2.2) Lipase (73-393) U/L Urine Color (YELLOW) Urine Appearance (CLEAR) Urine pH (5.0-8.0) Ur Specific [place] (1.008-1.030) Urine Protein (NEGATIVE) mg/dL Urine Glucose (UA) (NEGATIVE) mg/dL Urine Ketones (NEGATIVE) mg/dL Urine Occult Blood (NEGATIVE) Urine Nitrite (NEGATIVE) Urine Bilirubin (NEGATIVE) Urine Urobilinogen (0.2-1.0) EU/dL Ur Leukocyte Esterase (NEGATIVE) Urine RBC (0-5) Urine WBC (0-5) Ur Epithelial Cells Amorphous Sediment Urine Bacteria Urine Mucus Ketones (NEGATIVE) Result Diagrams: 09/20/20 04:40 09/20/20 12:35 Sepsis Event Note - Evaluation Sepsis Screening Result: No Definite Risk - Focused Exam Vital Signs: Vital Signs Temp Pulse Resp BP Pulse Ox 09/20/20 13:00 100 18 104/59 L 97 09/20/20 11:24 36.4 C 105 H 17 112/49 L 97 09/20/20 09:24 36.6 C 102 H 19 107/61 100 09/20/20 09:00 101 H 14 113/64 09/20/20 08:00 95 17 96/57 L 99 09/20/20 07:00 36.4 C 93 16 96/52 L 98 09/20/20 06:00 95 16 92/49 L 98 09/20/20 05:00 101 H 19 94/48 L 97 09/20/20 04:00 108 H 19 97/47 L 96 09/20/20 03:00 36.9 C 114 H 22 H 92/51 L 96 09/20/20 02:00 115 H 19 100/47 L 96 - Problem List & Annotations (1) DKA (diabetic ketoacidoses) SNOMED Code(s): 117793134, 748435726 Code(s): E11.10 - TYPE 2 DIABETES MELLITUS WITH KETOACIDOSIS WITHOUT COMA Status: Acute Current Visit: Yes Qualifiers: Diabetes mellitus type: type 1 Diabetes mellitus complication detail: without coma Qualified Code(s): E10.10 - Type 1 diabetes mellitus with ketoacidosis without coma (2) Acute kidney injury SNOMED Code(s): 11646263, 92094215 Code(s): N17.9 - ACUTE KIDNEY FAILURE, UNSPECIFIED Status: Acute Current Visit: Yes (3) Hyperkalemia SNOMED Code(s): 07768433 Code(s): E87.5 - HYPERKALEMIA Status: Acute Current Visit: Yes - My Orders Last 24 Hours: My Active Orders 09/19/20 21:45 Acetaminophen [TylenoL] 650 mg PO Q4H PRN Insulin Regular in 0.9 % NACL [Myxredlin in NS 100 UNIT/100 ML] 100 ml IV A SDIRECTED LORazepam [Ativan] 0.5 mg IVPUSH Q4H PRN Ondansetron [Zofran ODT] 4 mg PO Q6H PRN Ondansetron [Zofran] 4 mg IV Q6H PRN 09/19/20 21:45 Patient Status [ADT] Routine Antiembolic Devices [RC] .Routine Blood Glucose Check, Bedside [RC] Q1H Cardiac Monitoring [RC] CONTINUOUS Communication Order [RC] ASDIRECTED Diabetes Education [RC] Click to Edit Intake and Output [RC] QSHIFT Notify Provider Vital Signs [RC] ASDIRECTED Notify Provider [RC] PRN Oxygen Therapy [RC] PRN Up With Assistance [RC] ASDIRECTED VTE/DVT Education [RC] Per Unit Routine Vital Signs [RC] Q2H Sequential Compression Device [OM.PC] Routine 09/20/20 02:30 Ibuprofen [Motrin] 600 mg PO Q6H PRN 09/20/20 09:15 Dextrose 5%-0.9% NaCl [Dextrose 5%-Normal Saline] 1,000 ml IV ASDIRECTED 09/20/20 Lunch Consistent Carbohydrate Diet [DIET] 09/20/20 13:33 Communication Order [RC] ROUTINE - Plan Plan:: ASSESSMENT AND PLAN - Type 1 diabetes mellitus with ketoacidosis-severe acidosis with a pH of 7.0. I suspect the DKA is a result of equipment malfunction with a kinked needle resulting in impaired delivery of insulin. No evidence for infection. Feeling better after 1 L of fluids and some ondansetron as well as ketorolac. Sugar is normally very well controlled. I anticipate we will need to use dextrose containing fluids once her blood sugar gets lower because of the large anion gap. -Low-dose insulin infusion -Accu-Cheks every hour -Second 1 L bolus in the emergency room -BMP every 4 hours starting at 12:30 AM -Normal saline for now, anticipate transition to D5 NS when blood sugar below 200 -Transition back to insulin pump once her anion gap has normalized and symptoms have improved Acute kidney injury-secondary to dehydration in the setting of DKA. -Aggressive IV fluids -Repeat labs in the morning Hyperkalemia-secondary to hyperglycemia and acidosis. -Management as above -Repeat potassium level at 12:30 AM Maintenance issues - -DVT prophylaxis-mechanical -GI prophylaxis-PPI x1 this evening -Nutrition-clear liquids for now -Mendez catheter-not indicated CODE STATUS -full code Admission justification -this patient will be admitted for inpatient services and is medically appropriate meeting medical necessity for inpatient admission as outlined in my documentation. I reasonably expect the patient will require inpatient services that span a period time over 2 midnights. I reasonably expect this patient to be discharged or transferred within 96 hours [facility]. Disposition -I anticipate discharge home after the hospital stay Esau Cid M.D.
[2020-09-20] MEDS: Insulin Regular in 0.9 % NACL 100 ML IV SCH (13:35)
[2020-09-20] MEDS ORDERED: Insulin Regular in 0.9 % NACL 100 ML IV SCH (15:15)
[2020-09-20 17:08] VITALS: BP 116/59; PULSE 106
--- NOTE | 2020-09-20 18:05 | PCM.DCSUM1 ---
Discharge Summary - Hospital Course Brief History: 25-year-old female with history of type 1 diabetes well controlled with the use of an insulin pump who presented with weakness, nausea, vomiting and high blood sugars. She was admitted for management of diabetic ketoacidosis secondary to insulin delivery failure. Diagnosis: Stroke: No - Discharge Data Discharge Date: 09/20/20 Discharge Disposition: Home, Self-Care 01 Condition: Good - Referral to Home Health Primary Care Physician: Taylor Abdalla NP - Discharge Diagnosis/Problem(s) (1) DKA (diabetic ketoacidoses) SNOMED Code(s): 710579846, 851525893 ICD Code: E11.10 - TYPE 2 DIABETES MELLITUS WITH KETOACIDOSIS WITHOUT COMA Status: Acute Current Visit: Yes Qualifiers: Diabetes mellitus type: type 1 Diabetes mellitus complication detail: without coma Qualified Code(s): E10.10 - Type 1 diabetes mellitus with ketoacidosis without coma (2) Acute kidney injury SNOMED Code(s): 24775633, 30637199 ICD Code: N17.9 - ACUTE KIDNEY FAILURE, UNSPECIFIED Status: Acute Current Visit: Yes (3) Hyperkalemia SNOMED Code(s): 82683682 ICD Code: E87.5 - HYPERKALEMIA Status: Acute Current Visit: Yes - Patient Summary/Data Hospital Course: Abbi presented to the emergency room with weakness, headache, nausea and vomiting as well as high blood sugars. Work-up in the emergency room was suggestive of diabetic ketoacidosis with a severe reduction in her pH at 7.0 and a lactic acid of nearly 6. She had significant hyperglycemia as well as hyperkalemia and acute kidney injury. The suspected cause for the diabetic ketoacidosis was a kinked subcutaneous needle. In the emergency room she received IV fluids as well as IV insulin and a drip was initiated. She was admitted to the intensive care unit for further management. She received additional fluid boluses. Over the next several hours we did see an improvement in her blood sugar as well as normalization of her lactic acid. We continued IV insulin until her blood sugar was below 200 and then changed to dextrose containing IV fluids. We continued the insulin drip until the afternoon following admission when her anion gap closed. Symptomatically she was feeling much better even by the morning after admission and improved further throughout the course of the day. Her hyperkalemia resolved. Her acute kidney injury has resolved with IV fluids as well. She has no ongoing nausea or headache. We have stopped the IV insulin and dextrose containing fluids. She is transitioned back to her insulin pump. She does have insulin pens available at home if her pump continues to malfunction has not had. She does have a new insulin pump sariah t will be arriving tomorrow. She is stable and safe for discharge home at this time. At the time of admission the patient was quite ill and it was expected that management of her diabetic ketoacidosis, lactic acidosis, acute kidney injury and hyperkalemia would require a hospital stay spanning at least 2 midnights. She has improved much quicker than I expected with management and is ready for d ischarge after only 1 night in the hospital. - Patient Instructions Diet: Diabetic Diet Activity: As Tolerated Driving: May Drive Today Showering/Bathing: May Shower Notify Provider of: Fever, Nausea and/or Vomiting Other/Special Instructions: 1. You were in the hospital for management of diabetic ketoacidosis caused by a malfunction of the insulin delivery system. Your condition has improved with IV fluids and IV insulin. At this time it is safe to transition back to your insulin pump. 2. Continue use the insulin pump as you have in the past with the previous settings. If you have continued difficulty with rising blood sugars use the insulin pen as a backup until your new pump arrives tomorrow. 3. Follow up with your primary care if you continue to have difficulty with the insulin pump. - Discharge Plan *PRESCRIPTION DRUG MONITORING PROGRAM REVIEWED*: Not Applicable *COPY OF PRESCRIPTION DRUG MONITORING REPORT IN PATIENT MORENO: Not Applicable Home Medications: Home Meds Insulin Aspart [NovoLOG] 1.2 units SUBCNJ ASDIRECTED 07/16/19 [History] Patient Handouts: Diabetic Ketoacidosis - Discharge Summary/Plan Comment DC Time >30 min.: No - Patient Data Vitals - Most Recent: Last Vital Signs Temp 36.6 C 09/20/20 17:00 Pulse 106 H 09/20/20 17:00 Resp 22 H 09/20/20 17:00 BP 116/59 L 09/20/20 17:00 Pulse Ox 97 09/20/20 17:00 Weight - Most Recent: 86.1 kg I&O - Last 24 hours: Intake & Output 09/20/20 09/20/20 09/20/20 06:59 14:59 22:59 Intake Total 6848 295 8245 Output Total 500 525 Balance 1347 35 1404 Lab Results - Last 24 hrs: Laboratory Results - last 24 hr 09/19/20 09/19/20 09/19/20 Range/Units 19:41 20:09 20:09 WBC 27.2 H (4.5-11.0) K/uL RBC 5.41 (3.30-5.50) M/uL Hgb 15.7 H D (12.0-15.0) g/dL Hct 46.2 (36.0-48.0) % MCV 85 (80-98) fL MCH 29 (27-31) pg MCHC 34 (32-36) % Plt Count 381 (150-400) K/uL Neut % (Auto) 89 H (36-66) % Lymph % (Auto) 5 L (24-44) % [place] % (Auto) 6 (2-6) % Eos % (Auto) 0 L (2-4) % Baso % (Auto) 0 (0-1) % Puncture Site Rt radial ABG pH 7.083 L* (7.350-7.450) ABG pCO2 24.3 L (35.0-42.0) mmHg ABG pO2 65.8 L (75.0-100.0) mmHg ABG HCO3 6.9 L (22.0-26.0) mmol/L ABG Total CO2 6.6 L (21.0-25.0) mmol/L ABG O2 Saturation 85.4 L (95.0-98.0) % ABG O2 Content 17.6 (15.0-23.0) %vol ABG Base Excess -22.6 mm/L ABG Hemoglobin 14.9 (12.0-16.0) g/dL ABG Oxyhemoglobin 84.2 % ABG Carboxyhemoglobin 0.6 (0.0-1.6) % ABG Methemoglobin 0.8 % Jerry Test Passed O2 Delivery Device Room air Sodium 138 L (140-148) mmol/L Potassium 5.7 H (3.6-5.2) mmol/L Chloride 98 L (100-108) mmol/L Carbon Dioxide 10 L D (21-32) mmol/L Anion Gap 35.7 H (5.0-14.0) mmol/L BUN 22 H D (7-18) mg/dL Creatinine 1.4 H D (0.6-1.0) mg/dL Est Cr Clr Drug Dosing TNP Estimated GFR (MDRD) 47 L (>60) Glucose 449 H* (74-106) mg/dL POC Glucose (74-106) mg/dL Lactic Acid (0.4-2.0) mmol/L Calcium 9.9 (8.5-10.1) mg/dL Phosphorus 6.4 H (2.5-4.9) mg/dL Magnesium 2.0 (1.8-2.4) mg/dL Total Bilirubin 0.8 (0.2-1.0) mg/dL AST 24 (15-37) U/L ALT 59 (12-78) U/L Alkaline Phosphatase 223 H (46-116) U/L Troponin I (0.000-0.056) ng/mL Total Protein 8.7 H (6.4-8.2) g/dL Albumin 4.6 (3.4-5.0) g/dL Globulin 4.1 H (2.3-3.5) g/dL Albumin/Globulin Ratio 1.1 L (1.2-2.2) Lipase (73-393) U/L Urine Color (YELLOW) Urine Appearance (CLEAR) Urine pH (5.0-8.0) Ur Specific [place] (1.008-1.030) Urine Protein (NEGATIVE) mg/dL Urine Glucose (UA) (NEGATIVE) mg/dL Urine Ketones (NEGATIVE) mg/dL Urine Occult Blood (NEGATIVE) Urine Nitrite (NEGATIVE) Urine Bilirubin (NEGATIVE) Urine Urobilinogen (0.2-1.0) EU/dL Ur Leukocyte Esterase (NEGATIVE) Urine RBC (0-5) Urine WBC (0-5) Ur Epithelial Cells Amorphous Sediment Urine Bacteria Urine Mucus Ketones (NEGATIVE) 09/19/20 09/19/20 09/19/20 Range/Units 20:09 20:09 20:09 WBC (4.5-11.0) K/uL RBC (3.30-5.50) M/uL Hgb (12.0-15.0) g/dL Hct (36.0-48.0) % MCV (80-98) fL MCH (27-31) pg MCHC (32-36) % Plt Count (150-400) K/uL Neut % (Auto) (36-66) % Lymph % (Auto) (24-44) % [place] % (Auto) (2-6) % Eos % (Auto) (2-4) % Baso % (Auto) (0-1) % Puncture Site ABG pH (7.350-7.450) ABG pCO2 (35.0-42.0) mmHg ABG pO2 (75.0-100.0) mmHg ABG HCO3 (22.0-26.0) mmol/L ABG Total CO2 (21.0-25.0) mmol/L ABG O2 Saturation (95.0-98.0) % ABG O2 Content (15.0-23.0) %vol ABG Base Excess mm/L ABG Hemoglobin (12.0-16.0) g/dL ABG Oxyhemoglobin % ABG Carboxyhemoglobin (0.0-1.6) % ABG Methemoglobin % Jerry Test O2 Delivery Device Sodium (140-148) mmol/L Potassium (3.6-5.2) mmol/L Chloride (100-108) mmol/L Carbon Dioxide (21-32) mmol/L Anion Gap (5.0-14.0) mmol/L BUN (7-18) mg/dL Creatinine (0.6-1.0) mg/dL Est Cr Clr Drug Dosing Estimated GFR (MDRD) (>60) Glucose (74-106) mg/dL POC Glucose (74-106) mg/dL Lactic Acid 5.9 H (0.4-2.0) mmol/L Calcium (8.5-10.1) mg/dL Phosphorus (2.5-4.9) mg/dL Magnesium (1.8-2.4) mg/dL Total Bilirubin (0.2-1.0) mg/dL AST (15-37) U/L ALT (12-78) U/L Alkaline Phosphatase (46-116) U/L Troponin I (0.000-0.056) ng/mL Total Protein (6.4-8.2) g/dL Albumin (3.4-5.0) g/dL Globulin (2.3-3.5) g/dL Albumin/Globulin Ratio (1.2-2.2) Lipase 108 (73-393) U/L Urine Color (YELLOW) Urine Appearance (CLEAR) Urine pH (5.0-8.0) Ur Specific [place] (1.008-1.030) Urine Protein (NEGATIVE) mg/dL Urine Glucose (UA) (NEGATIVE) mg/dL Urine Ketones (NEGATIVE) mg/dL Urine Occult Blood (NEGATIVE) Urine Nitrite (NEGATIVE) Urine Bilirubin (NEGATIVE) Urine Urobilinogen (0.2-1.0) EU/dL Ur Leukocyte Esterase (NEGATIVE) Urine RBC (0-5) Urine WBC (0-5) Ur Epithelial Cells Amorphous Sediment Urine Bacteria Urine Mucus Ketones Small H (NEGATIVE) 09/19/20 09/19/20 09/19/20 Range/Units 20:15 20:32 22:02 WBC (4.5-11.0) K/uL RBC (3.30-5.50) M/uL Hgb (12.0-15.0) g/dL Hct (36.0-48.0) % MCV (80-98) fL MCH (27-31) pg MCHC (32-36) % Plt Count (150-400) K/uL Neut % (Auto) (36-66) % Lymph % (Auto) (24-44) % [place] % (Auto) (2-6) % Eos % (Auto) (2-4) % Baso % (Auto) (0-1) % Puncture Site ABG pH (7.350-7.450) ABG pCO2 (35.0-42.0) mmHg ABG pO2 (75.0-100.0) mmHg ABG HCO3 (22.0-26.0) mmol/L ABG Total CO2 (21.0-25.0) mmol/L ABG O2 Saturation (95.0-98.0) % ABG O2 Content (15.0-23.0) %vol ABG Base Excess mm/L ABG Hemoglobin (12.0-16.0) g/dL ABG Oxyhemoglobin % ABG Carboxyhemoglobin (0.0-1.6) % ABG Methemoglobin % Jerry Test O2 Delivery Device Sodium (140-148) mmol/L Potassium (3.6-5.2) mmol/L Chloride (100-108) mmol/L Carbon Dioxide (21-32) mmol/L Anion Gap (5.0-14.0) mmol/L BUN (7-18) mg/dL Creatinine (0.6-1.0) mg/dL Est Cr Clr Drug Dosing Estimated GFR (MDRD) (>60) Glucose (74-106) mg/dL POC Glucose 278 H (74-106) mg/dL Lactic Acid (0.4-2.0) mmol/L Calcium (8.5-10.1) mg/dL Phosphorus (2.5-4.9) mg/dL Magnesium (1.8-2.4) mg/dL Total Bilirubin (0.2-1.0) mg/dL AST (15-37) U/L ALT (12-78) U/L Alkaline Phosphatase (46-116) U/L Troponin I < 0.017 (0.000-0.056) ng/mL Total Protein (6.4-8.2) g/dL Albumin (3.4-5.0) g/dL Globulin (2.3-3.5) g/dL Albumin/Globulin Ratio (1.2-2.2) Lipase (73-393) U/L Urine Color Yellow (YELLOW) Urine Appearance Clear (CLEAR) Urine pH 5.0 (5.0-8.0) Ur Specific [place] >= 1.030 (1.008-1.030) Urine Protein 30 H (NEGATIVE) mg/dL Urine Glucose (UA) 500 H (NEGATIVE) mg/dL Urine Ketones 80 H (NEGATIVE) mg/dL Urine Occult Blood Trace-intact H (NEGATIVE) Urine Nitrite Negative (NEGATIVE) Urine Bilirubin Negative (NEGATIVE) Urine Urobilinogen 0.2 (0.2-1.0) EU/dL Ur Leukocyte Esterase Negative (NEGATIVE) Urine RBC 0-5 (0-5) Urine WBC Not seen (0-5) Ur Epithelial Cells Occasional Amorphous Sediment Rare Urine Bacteria Rare Urine Mucus Occasional Ketones (NEGATIVE) 09/19/20 09/20/20 09/20/20 Range/Units 23:04 00:14 00:20 WBC (4.5-11.0) K/uL RBC (3.30-5.50) M/uL Hgb (12.0-15.0) g/dL Hct (36.0-48.0) % MCV (80-98) fL MCH (27-31) pg MCHC (32-36) % Plt Count (150-400) K/uL Neut % (Auto) (36-66) % Lymph % (Auto) (24-44) % [place] % (Auto) (2-6) % Eos % (Auto) (2-4) % Baso % (Auto) (0-1) % Puncture Site ABG pH (7.350-7.450) ABG pCO2 (35.0-42.0) mmHg ABG pO2 (75.0-100.0) mmHg ABG HCO3 (22.0-26.0) mmol/L ABG Total CO2 (21.0-25.0) mmol/L ABG O2 Saturation (95.0-98.0) % ABG O2 Content (15.0-23.0) %vol ABG Base Excess mm/L ABG Hemoglobin (12.0-16.0) g/dL ABG Oxyhemoglobin % ABG Carboxyhemoglobin (0.0-1.6) % ABG Methemoglobin % Jerry Test O2 Delivery Device Sodium 142 (140-148) mmol/L Potassium 5.0 (3.6-5.2) mmol/L Chloride 109 H (100-108) mmol/L Carbon Dioxide 10 L (21-32) mmol/L Anion Gap 28.0 H (5.0-14.0) mmol/L BUN 17 (7-18) mg/dL Creatinine 1.0 (0.6-1.0) mg/dL Est Cr Clr Drug Dosing 78.60 Estimated GFR (MDRD) > 60 (>60) Glucose 165 H (74-106) mg/dL POC Glucose 227 H 161 H (74-106) mg/dL Lactic Acid (0.4-2.0) mmol/L Calcium 8.7 (8.5-10.1) mg/dL Phosphorus (2.5-4.9) mg/dL Magnesium (1.8-2.4) mg/dL Total Bilirubin (0.2-1.0) mg/dL AST (15-37) U/L ALT (12-78) U/L Alkaline Phosphatase (46-116) U/L Troponin I (0.000-0.056) ng/mL Total Protein (6.4-8.2) g/dL Albumin (3.4-5.0) g/dL Globulin (2.3-3.5) g/dL Albumin/Globulin Ratio (1.2-2.2) Lipase (73-393) U/L Urine Color (YELLOW) Urine Appearance (CLEAR) Urine pH (5.0-8.0) Ur Specific [place] (1.008-1.030) Urine Protein (NEGATIVE) mg/dL Urine Glucose (UA) (NEGATIVE) mg/dL Urine Ketones (NEGATIVE) mg/dL Urine Occult Blood (NEGATIVE) Urine Nitrite (NEGATIVE) Urine Bilirubin (NEGATIVE) Urine Urobilinogen (0.2-1.0) EU/dL Ur Leukocyte Esterase (NEGATIVE) Urine RBC (0-5) Urine WBC (0-5) Ur Epithelial Cells Amorphous Sediment Urine Bacteria Urine Mucus Ketones (NEGATIVE) 09/20/20 09/20/20 09/20/20 Range/Units 00:20 00:57 01:59 WBC (4.5-11.0) K/uL RBC (3.30-5.50) M/uL Hgb (12.0-15.0) g/dL Hct (36.0-48.0) % MCV (80-98) fL MCH (27-31) pg MCHC (32-36) % Plt Count (150-400) K/uL Neut % (Auto) (36-66) % Lymph % (Auto) (24-44) % [place] % (Auto) (2-6) % Eos % (Auto) (2-4) % Baso % (Auto) (0-1) % Puncture Site ABG pH (7.350-7.450) ABG pCO2 (35.0-42.0) mmHg ABG pO2 (75.0-100.0) mmHg ABG HCO3 (22.0-26.0) mmol/L ABG Total CO2 (21.0-25.0) mmol/L ABG O2 Saturation (95.0-98.0) % ABG O2 Content (15.0-23.0) %vol ABG Base Excess mm/L ABG Hemoglobin (12.0-16.0) g/dL ABG Oxyhemoglobin % ABG Carboxyhemoglobin (0.0-1.6) % ABG Methemoglobin % Jerry Test O2 Delivery Device Sodium (140-148) mmol/L Potassium (3.6-5.2) mmol/L Chloride (100-108) mmol/L Carbon Dioxide (21-32) mmol/L Anion Gap (5.0-14.0) mmol/L BUN (7-18) mg/dL Creatinine (0.6-1.0) mg/dL Est Cr Clr Drug Dosing Estimated GFR (MDRD) (>60) Glucose (74-106) mg/dL POC Glucose 173 H 168 H (74-106) mg/dL Lactic Acid 1.3 (0.4-2.0) mmol/L Calcium (8.5-10.1) mg/dL Phosphorus (2.5-4.9) mg/dL Magnesium (1.8-2.4) mg/dL Total Bilirubin (0.2-1.0) mg/dL AST (15-37) U/L ALT (12-78) U/L Alkaline Phosphatase (46-116) U/L Troponin I (0.000-0.056) ng/mL Total Protein (6.4-8.2) g/dL Albumin (3.4-5.0) g/dL Globulin (2.3-3.5) g/dL Albumin/Globulin Ratio (1.2-2.2) Lipase (73-393) U/L Urine Color (YELLOW) Urine Appearance (CLEAR) Urine pH (5.0-8.0) Ur Specific [place] (1.008-1.030) Urine Protein (NEGATIVE) mg/dL Urine Glucose (UA) (NEGATIVE) mg/dL Urine Ketones (NEGATIVE) mg/dL Urine Occult Blood (NEGATIVE) Urine Nitrite (NEGATIVE) Urine Bilirubin (NEGATIVE) Urine Urobilinogen (0.2-1.0) EU/dL Ur Leukocyte Esterase (NEGATIVE) Urine RBC (0-5) Urine WBC (0-5) Ur Epithelial Cells Amorphous Sediment Urine Bacteria Urine Mucus Ketones (NEGATIVE) 09/20/20 09/20/20 09/20/20 Range/Units 02:56 04:02 04:40 WBC 18.4 H (4.5-11.0) K/uL RBC 4.21 (3.30-5.50) M/uL Hgb 12.1 D (12.0-15.0) g/dL Hct 35.3 L (36.0-48.0) % MCV 84 (80-98) fL MCH 29 (27-31) pg MCHC 34 (32-36) % Plt Count 256 (150-400) K/uL Neut % (Auto) (36-66) % Lymph % (Auto) (24-44) % [place] % (Auto) (2-6) % Eos % (Auto) (2-4) % Baso % (Auto) (0-1) % Puncture Site ABG pH (7.350-7.450) ABG pCO2 (35.0-42.0) mmHg ABG pO2 (75.0-100.0) mmHg ABG HCO3 (22.0-26.0) mmol/L ABG Total CO2 (21.0-25.0) mmol/L ABG O2 Saturation (95.0-98.0) % ABG O2 Content (15.0-23.0) %vol ABG Base Excess mm/L ABG Hemoglobin (12.0-16.0) g/dL ABG Oxyhemoglobin % ABG Carboxyhemoglobin (0.0-1.6) % ABG Methemoglobin % Jerry Test O2 Delivery Device Sodium (140-148) mmol/L Potassium (3.6-5.2) mmol/L Chloride (100-108) mmol/L Carbon Dioxide (21-32) mmol/L Anion Gap (5.0-14.0) mmol/L BUN (7-18) mg/dL Creatinine (0.6-1.0) mg/dL Est Cr Clr Drug Dosing Estimated GFR (MDRD) (>60) Glucose (74-106) mg/dL POC Glucose 192 H 205 H (74-106) mg/dL Lactic Acid (0.4-2.0) mmol/L Calcium (8.5-10.1) mg/dL Phosphorus (2.5-4.9) mg/dL Magnesium (1.8-2.4) mg/dL Total Bilirubin (0.2-1.0) mg/dL AST (15-37) U/L ALT (12-78) U/L Alkaline Phosphatase (46-116) U/L Troponin I (0.000-0.056) ng/mL Total Protein (6.4-8.2) g/dL Albumin (3.4-5.0) g/dL Globulin (2.3-3.5) g/dL Albumin/Globulin Ratio (1.2-2.2) Lipase (73-393) U/L Urine Color (YELLOW) Urine Appearance (CLEAR) Urine pH (5.0-8.0) Ur Specific [place] (1.008-1.030) Urine Protein (NEGATIVE) mg/dL Urine Glucose (UA) (NEGATIVE) mg/dL Urine Ketones (NEGATIVE) mg/dL Urine Occult Blood (NEGATIVE) Urine Nitrite (NEGATIVE) Urine Bilirubin (NEGATIVE) Urine Urobilinogen (0.2-1.0) EU/dL Ur Leukocyte Esterase (NEGATIVE) Urine RBC (0-5) Urine WBC (0-5) Ur Epithelial Cells Amorphous Sediment Urine Bacteria Urine Mucus Ketones (NEGATIVE) 09/20/20 09/20/20 09/20/20 Range/Units 04:40 04:40 06:01 WBC (4.5-11.0) K/uL RBC (3.30-5.50) M/uL Hgb (12.0-15.0) g/dL Hct (36.0-48.0) % MCV (80-98) fL MCH (27-31) pg MCHC (32-36) % Plt Count (150-400) K/uL Neut % (Auto) (36-66) % Lymph % (Auto) (24-44) % [place] % (Auto) (2-6) % Eos % (Auto) (2-4) % Baso % (Auto) (0-1) % Puncture Site ABG pH (7.350-7.450) ABG pCO2 (35.0-42.0) mmHg ABG pO2 (75.0-100.0) mmHg ABG HCO3 (22.0-26.0) mmol/L ABG Total CO2 (21.0-25.0) mmol/L ABG O2 Saturation (95.0-98.0) % ABG O2 Content (15.0-23.0) %vol ABG Base Excess mm/L ABG Hemoglobin (12.0-16.0) g/dL ABG Oxyhemoglobin % ABG Carboxyhemoglobin (0.0-1.6) % ABG Methemoglobin % Jerry Test O2 Delivery Device Sodium 138 L (140-148) mmol/L Potassium 4.4 (3.6-5.2) mmol/L Chloride 107 (100-108) mmol/L Carbon Dioxide 15 L (21-32) mmol/L Anion Gap 20.4 H (5.0-14.0) mmol/L BUN 16 (7-18) mg/dL Creatinine 0.9 (0.6-1.0) mg/dL Est Cr Clr Drug Dosing 87.34 Estimated GFR (MDRD) > 60 (>60) Glucose 216 H (74-106) mg/dL POC Glucose 207 H (74-106) mg/dL Lactic Acid 0.8 (0.4-2.0) mmol/L Calcium 8.1 L (8.5-10.1) mg/dL Phosphorus (2.5-4.9) mg/dL Magnesium (1.8-2.4) mg/dL Total Bilirubin (0.2-1.0) mg/dL AST (15-37) U/L ALT (12-78) U/L Alkaline Phosphatase (46-116) U/L Troponin I (0.000-0.056) ng/mL Total Protein (6.4-8.2) g/dL Albumin (3.4-5.0) g/dL Globulin (2.3-3.5) g/dL Albumin/Globulin Ratio (1.2-2.2) Lipase (73-393) U/L Urine Color (YELLOW) Urine Appearance (CLEAR) Urine pH (5.0-8.0) Ur Specific [place] (1.008-1.030) Urine Protein (NEGATIVE) mg/dL Urine Glucose (UA) (NEGATIVE) mg/dL Urine Ketones (NEGATIVE) mg/dL Urine Occult Blood (NEGATIVE) Urine Nitrite (NEGATIVE) Urine Bilirubin (NEGATIVE) Urine Urobilinogen (0.2-1.0) EU/dL Ur Leukocyte Esterase (NEGATIVE) Urine RBC (0-5) Urine WBC (0-5) Ur Epithelial Cells Amorphous Sediment Urine Bacteria Urine Mucus Ketones (NEGATIVE) 09/20/20 09/20/20 09/20/20 Range/Units 06:59 08:01 08:54 WBC (4.5-11.0) K/uL RBC (3.30-5.50) M/uL Hgb (12.0-15.0) g/dL Hct (36.0-48.0) % MCV (80-98) fL MCH (27-31) pg MCHC (32-36) % Plt Count (150-400) K/uL Neut % (Auto) (36-66) % Lymph % (Auto) (24-44) % [place] % (Auto) (2-6) % Eos % (Auto) (2-4) % Baso % (Auto) (0-1) % Puncture Site ABG pH (7.350-7.450) ABG pCO2 (35.0-42.0) mmHg ABG pO2 (75.0-100.0) mmHg ABG HCO3 (22.0-26.0) mmol/L ABG Total CO2 (21.0-25.0) mmol/L ABG O2 Saturation (95.0-98.0) % ABG O2 Content (15.0-23.0) %vol ABG Base Excess mm/L ABG Hemoglobin (12.0-16.0) g/dL ABG Oxyhemoglobin % ABG Carboxyhemoglobin (0.0-1.6) % ABG Methemoglobin % Jerry Test O2 Delivery Device Sodium 138 L (140-148) mmol/L Potassium 4.3 (3.6-5.2) mmol/L Chloride 107 (100-108) mmol/L Carbon Dioxide 14 L (21-32) mmol/L Anion Gap 21.3 H (5.0-14.0) mmol/L BUN 15 (7-18) mg/dL Creatinine 0.8 (0.6-1.0) mg/dL Est Cr Clr Drug Dosing 98.25 Estimated GFR (MDRD) > 60 (>60) Glucose 228 H (74-106) mg/dL POC Glucose 199 H 199 H (74-106) mg/dL Lactic Acid (0.4-2.0) mmol/L Calcium 9.0 (8.5-10.1) mg/dL Phosphorus (2.5-4.9) mg/dL Magnesium (1.8-2.4) mg/dL Total Bilirubin (0.2-1.0) mg/dL AST (15-37) U/L ALT (12-78) U/L Alkaline Phosphatase (46-116) U/L Troponin I (0.000-0.056) ng/mL Total Protein (6.4-8.2) g/dL Albumin (3.4-5.0) g/dL Globulin (2.3-3.5) g/dL Albumin/Globulin Ratio (1.2-2.2) Lipase (73-393) U/L Urine Color (YELLOW) Urine Appearance (CLEAR) Urine pH (5.0-8.0) Ur Specific [place] (1.008-1.030) Urine Protein (NEGATIVE) mg/dL Urine Glucose (UA) (NEGATIVE) mg/dL Urine Ketones (NEGATIVE) mg/dL Urine Occult Blood (NEGATIVE) Urine Nitrite (NEGATIVE) Urine Bilirubin (NEGATIVE) Urine Urobilinogen (0.2-1.0) EU/dL Ur Leukocyte Esterase (NEGATIVE) Urine RBC (0-5) Urine WBC (0-5) Ur Epithelial Cells Amorphous Sediment Urine Bacteria Urine Mucus Ketones (NEGATIVE) 09/20/20 09/20/20 09/20/20 Range/Units 10:01 11:02 11:54 WBC (4.5-11.0) K/uL RBC (3.30-5.50) M/uL Hgb (12.0-15.0) g/dL Hct (36.0-48.0) % MCV (80-98) fL MCH (27-31) pg MCHC (32-36) % Plt Count (150-400) K/uL Neut % (Auto) (36-66) % Lymph % (Auto) (24-44) % [place] % (Auto) (2-6) % Eos % (Auto) (2-4) % Baso % (Auto) (0-1) % Puncture Site ABG pH (7.350-7.450) ABG pCO2 (35.0-42.0) mmHg ABG pO2 (75.0-100.0) mmHg ABG HCO3 (22.0-26.0) mmol/L ABG Total CO2 (21.0-25.0) mmol/L ABG O2 Saturation (95.0-98.0) % ABG O2 Content (15.0-23.0) %vol ABG Base Excess mm/L ABG Hemoglobin (12.0-16.0) g/dL ABG Oxyhemoglobin % ABG Carboxyhemoglobin (0.0-1.6) % ABG Methemoglobin % Jerry Test O2 Delivery Device Sodium (140-148) mmol/L Potassium (3.6-5.2) mmol/L Chloride (100-108) mmol/L Carbon Dioxide (21-32) mmol/L Anion Gap (5.0-14.0) mmol/L BUN (7-18) mg/dL Creatinine (0.6-1.0) mg/dL Est Cr Clr Drug Dosing Estimated GFR (MDRD) (>60) Glucose (74-106) mg/dL POC Glucose 242 H 258 H 257 H (74-106) mg/dL Lactic Acid (0.4-2.0) mmol/L Calcium (8.5-10.1) mg/dL Phosphorus (2.5-4.9) mg/dL Magnesium (1.8-2.4) mg/dL Total Bilirubin (0.2-1.0) mg/dL AST (15-37) U/L ALT (12-78) U/L Alkaline Phosphatase (46-116) U/L Troponin I (0.000-0.056) ng/mL Total Protein (6.4-8.2) g/dL Albumin (3.4-5.0) g/dL Globulin (2.3-3.5) g/dL Albumin/Globulin Ratio (1.2-2.2) Lipase (73-393) U/L Urine Color (YELLOW) Urine Appearance (CLEAR) Urine pH (5.0-8.0) Ur Specific [place] (1.008-1.030) Urine Protein (NEGATIVE) mg/dL Urine Glucose (UA) (NEGATIVE) mg/dL Urine Ketones (NEGATIVE) mg/dL Urine Occult Blood (NEGATIVE) Urine Nitrite (NEGATIVE) Urine Bilirubin (NEGATIVE) Urine Urobilinogen (0.2-1.0) EU/dL Ur Leukocyte Esterase (NEGATIVE) Urine RBC (0-5) Urine WBC (0-5) Ur Epithelial Cells Amorphous Sediment Urine Bacteria Urine Mucus Ketones (NEGATIVE) 09/20/20 09/20/20 09/20/20 Range/Units 12:35 14:00 15:03 WBC (4.5-11.0) K/uL RBC (3.30-5.50) M/uL Hgb (12.0-15.0) g/dL Hct (36.0-48.0) % MCV (80-98) fL MCH (27-31) pg MCHC (32-36) % Plt Count (150-400) K/uL Neut % (Auto) (36-66) % Lymph % (Auto) (24-44) % [place] % (Auto) (2-6) % Eos % (Auto) (2-4) % Baso % (Auto) (0-1) % Puncture Site ABG pH (7.350-7.450) ABG pCO2 (35.0-42.0) mmHg ABG pO2 (75.0-100.0) mmHg ABG HCO3 (22.0-26.0) mmol/L ABG Total CO2 (21.0-25.0) mmol/L ABG O2 Saturation (95.0-98.0) % ABG O2 Content (15.0-23.0) %vol ABG Base Excess mm/L ABG Hemoglobin (12.0-16.0) g/dL ABG Oxyhemoglobin % ABG Carboxyhemoglobin (0.0-1.6) % ABG Methemoglobin % Jerry Test O2 Delivery Device Sodium 139 L (140-148) mmol/L Potassium 4.4 (3.6-5.2) mmol/L Chloride 107 (100-108) mmol/L Carbon Dioxide 13 L (21-32) mmol/L Anion Gap 23.4 H (5.0-14.0) mmol/L BUN 14 (7-18) mg/dL Creatinine 0.8 (0.6-1.0) mg/dL Est Cr Clr Drug Dosing 98.25 Estimated GFR (MDRD) > 60 (>60) Glucose 230 H (74-106) mg/dL POC Glucose 219 H 280 H (74-106) mg/dL Lactic Acid (0.4-2.0) mmol/L Calcium 9.5 (8.5-10.1) mg/dL Phosphorus (2.5-4.9) mg/dL Magnesium (1.8-2.4) mg/dL Total Bilirubin (0.2-1.0) mg/dL AST (15-37) U/L ALT (12-78) U/L Alkaline Phosphatase (46-116) U/L Troponin I (0.000-0.056) ng/mL Total Protein (6.4-8.2) g/dL Albumin (3.4-5.0) g/dL Globulin (2.3-3.5) g/dL Albumin/Globulin Ratio (1.2-2.2) Lipase (73-393) U/L Urine Color (YELLOW) Urine Appearance (CLEAR) Urine pH (5.0-8.0) Ur Specific [place] (1.008-1.030) Urine Protein (NEGATIVE) mg/dL Urine Glucose (UA) (NEGATIVE) mg/dL Urine Ketones (NEGATIVE) mg/dL Urine Occult Blood (NEGATIVE) Urine Nitrite (NEGATIVE) Urine Bilirubin (NEGATIVE) Urine Urobilinogen (0.2-1.0) EU/dL Ur Leukocyte Esterase (NEGATIVE) Urine RBC (0-5) Urine WBC (0-5) Ur Epithelial Cells Amorphous Sediment Urine Bacteria Urine Mucus Ketones (NEGATIVE) 09/20/20 09/20/20 09/20/20 Range/Units 16:00 17:02 17:24 WBC (4.5-11.0) K/uL RBC (3.30-5.50) M/uL Hgb (12.0-15.0) g/dL Hct (36.0-48.0) % MCV (80-98) fL MCH (27-31) pg MCHC (32-36) % Plt Count (150-400) K/uL Neut % (Auto) (36-66) % Lymph % (Auto) (24-44) % [place] % (Auto) (2-6) % Eos % (Auto) (2-4) % Baso % (Auto) (0-1) % Puncture Site ABG pH (7.350-7.450) ABG pCO2 (35.0-42.0) mmHg ABG pO2 (75.0-100.0) mmHg ABG HCO3 (22.0-26.0) mmol/L ABG Total CO2 (21.0-25.0) mmol/L ABG O2 Saturation (95.0-98.0) % ABG O2 Content (15.0-23.0) %vol ABG Base Excess mm/L ABG Hemoglobin (12.0-16.0) g/dL ABG Oxyhemoglobin % ABG Carboxyhemoglobin (0.0-1.6) % ABG Methemoglobin % Jerry Test O2 Delivery Device Sodium 139 L (140-148) mmol/L Potassium 3.8 (3.6-5.2) mmol/L Chloride 107 (100-108) mmol/L Carbon Dioxide 20 L (21-32) mmol/L Anion Gap 15.8 H (5.0-14.0) mmol/L BUN 13 (7-18) mg/dL Creatinine 0.8 (0.6-1.0) mg/dL Est Cr Clr Drug Dosing 98.25 Estimated GFR (MDRD) > 60 (>60) Glucose 254 H (74-106) mg/dL POC Glucose 236 H 233 H (74-106) mg/dL Lactic Acid (0.4-2.0) mmol/L Calcium 8.6 (8.5-10.1) mg/dL Phosphorus (2.5-4.9) mg/dL Magnesium (1.8-2.4) mg/dL Total Bilirubin (0.2-1.0) mg/dL AST (15-37) U/L ALT (12-78) U/L Alkaline Phosphatase (46-116) U/L Troponin I (0.000-0.056) ng/mL Total Protein (6.4-8.2) g/dL Albumin (3.4-5.0) g/dL Globulin (2.3-3.5) g/dL Albumin/Globulin Ratio (1.2-2.2) Lipase (73-393) U/L Urine Color (YELLOW) Urine Appearance (CLEAR) Urine pH (5.0-8.0) Ur Specific [place] (1.008-1.030) Urine Protein (NEGATIVE) mg/dL Urine Glucose (UA) (NEGATIVE) mg/dL Urine Ketones (NEGATIVE) mg/dL Urine Occult Blood (NEGATIVE) Urine Nitrite (NEGATIVE) Urine Bilirubin (NEGATIVE) Urine Urobilinogen (0.2-1.0) EU/dL Ur Leukocyte Esterase (NEGATIVE) Urine RBC (0-5) Urine WBC (0-5) Ur Epithelial Cells Amorphous Sediment Urine Bacteria Urine Mucus Ketones (NEGATIVE) Med Orders - Current: Current Medications Acetaminophen (Acetaminophen 325 Mg Tab) 650 mg PO Q4H PRN PRN Reason: Pain (Mild 1-3)/fever Last Admin: 09/19/20 23:07 Dose: 650 mg Documented by: Dextrose/Sodium Chloride (Dextrose 5%-Normal Saline) 1,000 mls @ 125 mls/hr IV ASDIRECTED [facility] Last Admin: 09/20/20 10:13 Dose: 125 mls/hr Documented by: Insulin Regular in 0.9 % NACL (Myxredlin In Ns 100 Unit/100 Ml) 100 mls @ 8.61 mls/hr IV ASDIRECTED [facility]; Protocol Ibuprofen (Ibuprofen 600 Mg Tab) 600 mg PO Q6H PRN PRN Reason: Pain/Fever Lorazepam (Lorazepam 2 Mg/Ml Sdv) 0.5 mg IVPUSH Q4H PRN PRN Reason: Nausea/Vomiting Ondansetron HCl (Ondansetron 4 Mg/2 Ml Sdv) 4 mg IV Q6H PRN PRN Reason: Nausea/Vomiting Ondansetron HCl (Ondansetron 4 Mg Tab.Dis) 4 mg PO Q6H PRN PRN Reason: Nausea able to take PO Sodium Chloride (Sodium Chloride 0.9% 10 Ml Syringe) 10 ml FLUSH ASDIRECTED PRN PRN Reason: Keep Vein Open Last Admin: 09/19/20 19:54 Dose: 10 ml Documented by: Discontinued Medications Sodium Chloride (Normal Saline) 1,000 mls @ 999 mls/hr IV ASDIRECTED [facility] Last Admin: 09/19/20 19:54 Dose: 999 mls/hr Documented by: Insulin Regular in 0.9 % NACL (Myxredlin In Ns 100 Unit/100 Ml) 100 unit in 100 mls @ 12.068 mls/hr IV ASDIRECTED [facility] Last Admin: 09/19/20 20:02 Dose: 0.14 units/kg/hr, 12.068 mls/hr Documented by: Sodium Chloride (Normal Saline) 1,000 mls @ 999 mls/hr IV ASDIRECTED [facility] Stop: 09/19/20 22:31 Last Admin: 09/19/20 21:27 Dose: 999 mls/hr Documented by: Sodium Chloride (Normal Saline) 1,000 mls @ 125 mls/hr IV ASDIRECTED [facility] Last Admin: 09/19/20 22:10 Dose: 125 mls/hr Documented by: Insulin Regular in 0.9 % NACL (Myxredlin In Ns 100 Unit/100 Ml) 100 mls @ 8.618 mls/hr IV ASDIRECTED [facility]; Protocol Last Infusion: 09/20/20 16:01 Dose: 0.05 units/kg/hr, 4 mls/hr Documented by: Dextrose/Sodium Chloride (Dextrose 5%-Normal Saline) 1,000 mls @ 100 mls/hr IV ASDIRECTED [facility] Last Infusion: 09/20/20 09:18 Dose: 125 mls/hr Documented by: Ketorolac Tromethamine (Ketorolac 30 Mg/Ml Sdv) 30 mg IVPUSH ONETIME ONE Stop: 09/19/20 20:18 Last Admin: 09/19/20 20:25 Dose: 30 mg Documented by: Ondansetron HCl (Ondansetron 4 Mg/2 Ml Sdv) 4 mg IVPUSH ONETIME ONE Stop: 09/19/20 19:46 Last Admin: 09/19/20 19:54 Dose: 4 mg Documented by: Pantoprazole Sodium (Pantoprazole 40 Mg Vial) 40 mg IV ONETIME ONE Stop: 09/19/20 22:01 Last Admin: 09/19/20 22:10 Dose: 40 mg Documented by:
== END 2020-09-20 18:28 | disposition home or self-care (01) | DRG 813 ==
LOC: JP.ED 19:20 → JP.ICU 21:21
PROVIDERS: ADMIT Internal Medicine; ATTEND Internal Medicine
DX: T85.694A Other mechanical complication of insulin pump, initial encounter (principal); T38.3X6A Underdosing of insulin and oral hypoglycemic [antidiabetic] drugs, initial encounter; E10.10 Type 1 diabetes mellitus with ketoacidosis without coma; N17.9 Acute kidney failure, unspecified; E87.5 Hyperkalemia; E86.0 Dehydration; H54.7 Unspecified visual loss; M19.90 Unspecified osteoarthritis, unspecified site
CPT/HCPCS: 36415; 36600; 80048; 80053; 81001; 82009; 82803; 82947; 83605; 83690; 83735; 84100; 84484; 85025; 85027; 87040; 93005; 96374; 96375; 99285-25; A9270-GY; C9113; J1815-GY; J1885; J2405; J7030

== ENCOUNTER 2021-04-19 20:57 | Emergency (ER) | payer BC ==
[2021-04-19] MEDS ORDERED: Metoclopramide 10 MG/2 ML SDV IVPUSH ONE (21:18)
[2021-04-19] MEDS ORDERED: Lactated Ringers 1,000 ML IV ONE (21:18)
--- NOTE | 2021-04-19 21:25 | EDM.PDOC ---
ED HPI GENERAL MEDICAL PROBLEM - General Chief Complaint: General Stated Complaint: HIGH BLOOD SUGARS Time Seen by Provider: 04/19/21 21:10 Source of Information: Reports: Patient, Old Records History Limitations: Reports: No Limitations - History of Present Illness INITIAL COMMENTS - FREE TEXT/NARRATIVE: 25 yo female has had nausea, vomiting, and diarrhea since Saturday. She was seen in the walk-in clinic on Saturday and was given Zofran that she continues to take. She has IDDM and today her blood sugars have been high in addition to continuation of the other sx's. No fever or bleeding. Is a bit confused at times today. Had a casette changed today and thinks her insulin pump then failed. Got 16 units of Novolog subcut at 8:40pm tonight when they figured out what had occurred. Onset: Gradual Onset Date: 04/16/21 Duration: Day(s):, Getting Worse Location: Reports: Generalized Quality: Reports: Other (pain not a big factor) Severity: Moderate (nausea) Improves with: Reports: None Worsens with: Reports: Other (time) Context: Reports: Other (See HPI) Associated Symptoms: Reports: Confusion, Loss of Appetite, Malaise, Na usea/Vomiting. 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 (see below) (Zofran ODT) - Related Data Allergies Allergy/AdvReac Type Severity Reaction Status Date / Time No Known Allergies Allergy Verified 04/19/21 21:42 Home Meds: Home Meds Insulin Aspart [NovoLOG] 1.2 units SUBCNJ ASDIRECTED 07/16/19 [History] Past Medical History - Past Health History Medical/Surgical History: Denies Medical/Surgical History HEENT History: Reports: Impaired Vision Genitourinary History: Reports: UTI, Recurrent MEDICATION SPECIALIST History: Reports: Endometriosis, Musculoskeletal History: Reports: Arthritis, Fracture Endocrine/Metabolic History: Reports: Diabetes, Type I Insulin Pump Model and Unindentured Apprentice: tandem t-slim X2 - Past Surgical History Female Surgical History: Reports: Other (See Below) Social & Family History - Family History Endocrine/Metabolic: Reports: Diabetes, type II (Maternal uncle) - Caffeine Use Caffeine Use: Reports: Coffee ED ROS GENERAL - Review of Systems Review Of Systems: See Below Constitutional: Reports: Malaise, Decreased Appetite HEENT: Reports: No Symptoms Respiratory: Reports: No Symptoms Cardiovascular: Reports: Lightheadedness Endocrine: Reports: High Glucose GI/Abdominal: Reports: Diarrhea, Nausea, Vomiting. Denies: Hematemesis, Hematochezia, Melena : Reports: No Symptoms Musculoskeletal: Reports: No Symptoms Skin: Reports: No Symptoms Neurological: Reports: No Symptoms Psychiatric: Reports: No Symptoms ED EXAM, GENERAL - Physical Exam Exam: See Below Exam Limited By: No Limitations General Appearance: Alert, WD/WN, Mild Distress Eye Exam: Bilateral Eye: Normal Inspection Ears: Normal External Exam, Normal Canal, Hearing Grossly Normal Ear Exam: Bilateral Ear: Auricle Normal, Canal Normal Nose: Normal Inspection, No Blood Throat/Mouth: Normal Inspection, Normal Lips, Normal Oropharynx, Normal Voice, No Airway Compromise Head: Atraumatic, Normocephalic Neck: Normal Inspection Respiratory/Chest: No Respiratory Distress, Lungs Clear, Normal Breath Sounds, No Accessory Muscle Use Cardiovascular: Regular Rate, Rhythm, No Edema GI/Abdominal: Normal Bowel Sounds, Soft, Non-Tender, No Distention Back Exam: Normal Inspection. No: CVA Tenderness (R), CVA Tenderness (L) Extremities: Normal Inspection, Normal Range of Motion, Non-Tender, No Pedal Edema Neurological: Alert, Oriented, CN II-XII Intact, Normal Cognition, No Motor/Sensory Deficits Psychiatric: Normal Affect, Normal Mood Skin Exam: Warm, Dry, Intact, Normal Color, No Rash Course - Vital Signs Last Recorded V/S: Last Vital Signs Temp 36.7 C 04/19/21 21:38 Pulse 96 04/19/21 22:05 Resp 14 04/19/21 21:38 BP 138/81 04/19/21 22:05 Pulse Ox 96 04/19/21 22:05 Orthostatic Blood Pressure [ 118/69 Standing] Orthostatic Blood Pressure [ 134/74 Sitting] Orthostatic Blood Pressure [ 128/80 Supine] - Orders/Labs/Meds Orders: Active Orders 24 hr Category Date Time Status Orthostatic Vital Signs [RC] ASDIRECTED Care 04/19/21 22:38 Active Labs: Laboratory Tests 04/19/21 04/19/21 04/19/21 Range/Units 21:39 21:39 21:39 WBC 9.1 (4.5-11.0) K/uL RBC 4.88 (3.30-5.50) M/uL Hgb 13.9 (12.0-15.0) g/dL Hct 40.0 (36.0-48.0) % MCV 82 (80-98) fL MCH 29 (27-31) pg MCHC 35 (32-36) % Plt Count 218 (150-400) K/uL VBG pH 7.377 (7.350-7.450) Sodium 130 L (140-148) mmol/L Potassium 4.5 (3.6-5.2) mmol/L Chloride 96 L (100-108) mmol/L Carbon Dioxide 25 (21-32) mmol/L Anion Gap 13.5 (5.0-14.0) mmol/L BUN 15 (7-18) mg/dL Creatinine 1.1 H (0.6-1.0) mg/dL Est Cr Clr Drug Dosing 71.57 mL/min Estimated GFR (MDRD) > 60 (>60) Glucose 574 H* (74-106) mg/dL POC Glucose (74-106) mg/dL Calcium 8.6 (8.5-10.1) mg/dL Urine Color (YELLOW) Urine Appearance (CLEAR) Urine pH (5.0-8.0) Ur Specific [place] (1.008-1.030) Urine Protein (NEGATIVE) mg/dL Urine Glucose (UA) (NEGATIVE) mg/dL Urine Ketones (NEGATIVE) mg/dL Urine Occult Blood (NEGATIVE) Urine Nitrite (NEGATIVE) Urine Bilirubin (NEGATIVE) Urine Urobilinogen (0.2-1.0) EU/dL Ur Leukocyte Esterase (NEGATIVE) Urine RBC (0-5) Urine WBC (0-5) Ur Epithelial Cells Amorphous Sediment Urine Bacteria Urine Mucus Urine HCG, Qual 04/19/21 04/19/21 04/19/21 Range/Units 21:59 21:59 22:59 WBC (4.5-11.0) K/uL RBC (3.30-5.50) M/uL Hgb (12.0-15.0) g/dL Hct (36.0-48.0) % MCV (80-98) fL MCH (27-31) pg MCHC (32-36) % Plt Count (150-400) K/uL VBG pH (7.350-7.450) Sodium (140-148) mmol/L Potassium (3.6-5.2) mmol/L Chloride (100-108) mmol/L Carbon Dioxide (21-32) mmol/L Anion Gap (5.0-14.0) mmol/L BUN (7-18) mg/dL Creatinine (0.6-1.0) mg/dL Est Cr Clr Drug Dosing mL/min Estimated GFR (MDRD) (>60) Glucose (74-106) mg/dL POC Glucose 519 H* (74-106) mg/dL Calcium (8.5-10.1) mg/dL Urine Color Yellow (YELLOW) Urine Appearance Clear (CLEAR) Urine pH 5.5 (5.0-8.0) Ur Specific [place] 1.010 (1.008-1.030) Urine Protein Negative (NEGATIVE) mg/dL Urine Glucose (UA) 500 H (NEGATIVE) mg/dL Urine Ketones 40 H (NEGATIVE) mg/dL Urine Occult Blood Trace-intact H (NEGATIVE) Urine Nitrite Negative (NEGATIVE) Urine Bilirubin Negative (NEGATIVE) Urine Urobilinogen 0.2 (0.2-1.0) EU/dL Ur Leukocyte Esterase Negative (NEGATIVE) Urine RBC 5-10 H (0-5) Urine WBC 0-5 (0-5) Ur Epithelial Cells Moderate Amorphous Sediment Not seen Urine Bacteria Moderate Urine Mucus Few Urine HCG, Qual Negative Meds: Medications Discontinued Medications Generic Name Dose Route Start Last Admin Trade Name Freq PRN Reason Stop Dose Admin Lactated Ringer's 1,000 mls @ 1,000 mls/hr 04/19/21 21:18 04/19/21 21:43 Ringers, Lactated IV 04/19/21 22:17 1,000 mls/hr BOLUS ONE Administration Metoclopramide HCl 5 mg 04/19/21 21:18 04/19/21 21:50 Metoclopramide 10 Mg/2 Ml Sdv IVPUSH 04/19/21 21:19 5 mg ONETIME ONE Administration Potassium Chloride 40 meq 04/19/21 22:08 04/19/21 22:21 Potassium Chloride 20 Meq Tab.Er PO 04/19/21 22:09 40 meq ONETIME ONE Administration - Re-Assessments/Exams Free Text/Narrative Re-Assessment/Exam: 04/20/21 00:22 Feeling better, wants to go home. Departure - Departure Time of Disposition: 00:22 Disposition: Home, Self-Care 01 Condition: Fair Clinical Impression: Elevated blood sugar Nausea and vomiting Qualifiers: Vomiting type: unspecified Vomiting Intractability: non-intractable Qualified Code(s): R11.2 - Nausea with vomiting, unspecified - Discharge Information *PRESCRIPTION DRUG MONITORING PROGRAM REVIEWED*: Not Applicable *COPY OF PRESCRIPTION DRUG MONITORING REPORT IN PATIENT [place]: Not Applicable Instructions: Nausea and Vomiting, Adult, [id number] Referrals: Taylor Abdalla NP [Primary Care Provider] - Forms: ED Department Discharge Additional Instructions: Zofran every 6 hrs as needed for nausea control. Watch blood sugars closely over the next 24 hrs. Recheck if worse. Sepsis Event Note (ED) - Focused Exam Vital Signs: Vital Signs Temp Pulse Resp BP Pulse Ox 04/19/21 22:05 96 138/81 96 04/19/21 21:38 36.7 C 87 14 119/78 97 04/19/21 21:13 36.7 C 87 14 119/78 97 - My Orders Last 24 Hours: My Active Orders 04/19/21 22:38 Orthostatic Vital Signs [RC] ASDIRECTED - Assessment/Plan Last 24 Hours: My Active Orders 04/19/21 22:38 Orthostatic Vital Signs [RC] ASDIRECTED
[2021-04-19 22:06] VITALS: BP 138/81; PULSE 96
[2021-04-19] MEDS ORDERED: Potassium Chloride 20 MEQ Tab.ER PO ONE (22:08)
== END 2021-04-20 01:04 | disposition home or self-care (01) ==
LOC: JP.ED 20:57
DX: R11.2 Nausea with vomiting, unspecified (principal); E10.65 Type 1 diabetes mellitus with hyperglycemia
CPT/HCPCS: 36415; 80048; 81001; 81025; 82800; 82947; 85027; 96374; 99284; A9270; J2765; J7120

== ENCOUNTER 2021-07-03 13:25 | Emergency (ER) | payer OTHER, BC ==
[2021-07-03] MEDS ORDERED: Prochlorperazine 10 MG Tab PO ONE (14:04)
[2021-07-03] MEDS ORDERED: Ketorolac 30 MG/ML SDV IM ONE (14:04)
[2021-07-03] MEDS ORDERED: Cyclobenzaprine 10 MG Tab PO ONE (14:04)
[2021-07-03 15:23] VITALS: BP 107/65; PULSE 78
== END 2021-07-03 16:01 | disposition home or self-care (01) ==
LOC: JP.ED 13:25
DX: S13.4XXA Sprain of ligaments of cervical spine, initial encounter (principal); S09.90XA Unspecified injury of head, initial encounter; E10.9 Type 1 diabetes mellitus without complications; V49.40XA Driver injured in collision with unspecified motor vehicles in traffic accident, initial encounter; Y92.410 Unspecified street and highway as the place of occurrence of the external cause
CPT/HCPCS: 96372; 99283; A9270; J1885; Q0164